=== PATIENT | female | born 1970 | race Caucasian/White ===

== ENCOUNTER 2018-08-01 16:55 | Outpatient (REF) | payer BC, SELFPAY ==
[2018-08-01 19:45] LABS: ALT 27 U/L (12-78); AST 24 U/L (15-37); Albumin 3.5 g/dL (3.4-5.0); Alkaline Phosphatase 73 U/L (46-116); Anion Gap 11.7 mmol/L (3-11); BUN 14 mg/dL (7-18); Bilirubin, Total 0.4 mg/dL (0.2-1.0); CO2 24.3 mmol/L (21.0-32.0); Calcium 9.3 mg/dL (8.5-10.1); Chloride 107 mmol/L (98-107); Estimated GFR 40.13 (mL/min/1.73m2); Glucose 94 mg/dL (70-100); Potassium 4.5 mmol/L (3.5-5.1); Sodium 143 mmol/L (136-145); TSH 1.86 uIU/mL (0.358-3.74); Total Protein 6.9 g/dL (6.4-8.2)
== END 2018-08-01 17:15 ==
LOC: NCHCN 16:55
PROVIDERS: PCP Family Medicine; Visit Provider Family Medicine
DX: E11.9 Type 2 diabetes mellitus without complications (principal); N18.9 Chronic kidney disease, unspecified; E78.5 Hyperlipidemia, unspecified; I10 Essential (primary) hypertension
CPT/HCPCS: 80053; 84443

== ENCOUNTER 2019-07-31 16:51 | Outpatient (REF) | payer BC, SELFPAY | END 2019-07-31 17:11 | LOC: NCHCN 16:51 | PROVIDERS: PCP Family Medicine; Visit Provider Family Medicine | DX: R30.0 Dysuria (principal) | CPT/HCPCS: 87077; 87086; 87186 ==

== ENCOUNTER 2019-10-23 15:43 | Outpatient (REF) | payer BC, SELFPAY ==
[2019-10-23 18:57] LABS: ALT 21 U/L (14-59); AST 15 U/L (15-37); Albumin 3.2 g/dL (3.4-5.0); Alkaline Phosphatase 76 U/L (46-116); Anion Gap 11.7 mmol/L (3-11); BUN 20 mg/dL (7-18); Bilirubin, Total 0.3 mg/dL (0.2-1.0); CO2 21.3 mmol/L (21.0-32.0); CREATININE 1.64 mg/dL (0.55-1.02); Calcium 9.1 mg/dL (8.5-10.1); Chloride 108 mmol/L (98-107); Glucose 161 mg/dL (74-106); Potassium 4.7 mmol/L (3.5-5.1); Sodium 141 mmol/L (136-145); Total Protein 6.9 g/dL (6.4-8.2)
[2019-10-23 18:59] LABS: Hemoglobin A1C 7.2 % (3.8-5.6)
== END 2019-10-23 16:03 ==
LOC: NCHCN 15:43
PROVIDERS: PCP Family Medicine; Visit Provider Family Medicine
DX: I10 Essential (primary) hypertension (principal); E78.5 Hyperlipidemia, unspecified; E11.9 Type 2 diabetes mellitus without complications; N18.9 Chronic kidney disease, unspecified; R82.79 Other abnormal findings on microbiological examination of urine
CPT/HCPCS: 80053; 83036; 87086

== ENCOUNTER 2019-12-01 18:00 | Outpatient (REF) | payer BC, SELFPAY | END 2019-12-01 18:20 | LOC: NCHCN 18:00 | PROVIDERS: PCP Family Medicine; Visit Provider Family Medicine | DX: R30.0 Dysuria (principal) | CPT/HCPCS: 87077; 87086; 87186 ==

== ENCOUNTER 2019-12-24 12:46 | Outpatient (REF) | payer BC, SELFPAY ==
[2019-12-24 19:12] LABS: HCT 36.4 % (36.0-46.0); HGB 11.7 g/dL (12.0-15.5); Mean Corp. HGB Concentration 32.1 g/dL (32.0-36.0); Mean Corpuscular Hemoglobin 28.1 pg (27.0-33.0); Mean Corpuscular Volume 87.3 fL (80-95); Mean Platelet Volume 11.2 fL (8.0-11.0); Platelet Count 325 x1000/uL (130-400); RBC 4.17 m/cumm (4.00-5.20); RBC Distribution Width 14.3 % (11.7-14.6); White Blood Cell Count 5.08 k/cumm (4.4-10.8)
[2019-12-24 19:21] LABS: ALT 33 U/L (14-59); AST 28 U/L (15-37); Albumin 3.1 g/dL (3.4-5.0); Alkaline Phosphatase 67 U/L (46-116); Anion Gap 10.2 mmol/L (3-11); BUN 20 mg/dL (7-18); Bilirubin, Total 0.3 mg/dL (0.2-1.0); CO2 24.8 mmol/L (21.0-32.0); CREATININE 1.83 mg/dL (0.55-1.02); Calcium 9.5 mg/dL (8.5-10.1); Calculated LDL 75 mg/dL (<100); Chloride 105 mmol/L (98-107); Cholesterol 147 mg/dL (<200); Estimated GFR 29.34 (mL/min/1.73m2); Glucose 153 mg/dL (74-106); HDL Cholesterol 36 mg/dL (40-60); Potassium 4.6 mmol/L (3.5-5.1); Sodium 140 mmol/L (136-145); Total Protein 6.8 g/dL (6.4-8.2); Triglyceride 181 mg/dL (<150)
== END 2019-12-24 13:06 ==
LOC: NCHCN 12:46
PROVIDERS: PCP Family Medicine; Visit Provider Family Medicine
DX: N30.10 Interstitial cystitis (chronic) without hematuria (principal); R30.0 Dysuria; N18.9 Chronic kidney disease, unspecified; E78.5 Hyperlipidemia, unspecified; I10 Essential (primary) hypertension
CPT/HCPCS: 80053; 80061; 85027; 87086

== ENCOUNTER 2020-01-05 11:53 | Outpatient (REF) | payer BC, SELFPAY | END 2020-01-05 12:13 | LOC: LBN 11:53 | PROVIDERS: PCP Family Medicine; Visit Provider Nurse Practitioner Adult Health | DX: Z87.440 Personal history of urinary (tract) infections (principal) | CPT/HCPCS: 87086 ==

== ENCOUNTER 2020-02-01 13:17 | Outpatient (REF) | payer BC, SELFPAY ==
[2020-02-01 23:48] LABS: CREATININE 1.79 mg/dL (0.55-1.02)
== END 2020-02-01 13:37 ==
LOC: LBN 13:17
PROVIDERS: PCP Family Medicine; Visit Provider Nurse Practitioner Adult Health
DX: N13.30 Unspecified hydronephrosis (principal)
CPT/HCPCS: 82565

== ENCOUNTER 2020-03-04 15:26 | Outpatient (REF) | payer BC, SELFPAY | END 2020-03-04 15:46 | LOC: NCHCN 15:26 | PROVIDERS: PCP Family Medicine; Visit Provider Family Medicine | DX: N39.0 Urinary tract infection, site not specified (principal) | CPT/HCPCS: 87086 ==

== ENCOUNTER 2020-04-26 16:35 | Outpatient (REF) | payer BC, SELFPAY | END 2020-04-26 16:55 | LOC: LBN 16:35 | PROVIDERS: PCP Family Medicine; Visit Provider Urology | DX: R39.9 Unspecified symptoms and signs involving the genitourinary system (principal) | CPT/HCPCS: 87077; 87086; 87186 ==

== ENCOUNTER 2020-05-13 12:16 | Outpatient (REF) | payer BC, SELFPAY ==
[2020-05-13 19:25] LABS: Bilirubin Negative (Negative); Blood Moderate (Negative); Clarity Cloudy (Clear); Glucose 500 mg/dL (Negative); Ketones Negative (Negative); Leukocyte Esterase Moderate (Negative); Nitrite Positive (Negative); Specific Gravity 1.025 (1.005-1.025); Urobilinogen 0.2 EU/dL (Up TO 0.2); pH 5.5 (5-8)
[2020-05-13 19:35] LABS: Bacteria Many HPF (Negative); C & S Indicated? Yes; Casts Negative LPF (Negative); Crystals Negative HPF (Negative); Epithelial Cells Few HPF (Negative); Mucus Trace (Negative)
== END 2020-05-13 12:36 ==
LOC: NCHCN 12:16
PROVIDERS: PCP Family Medicine; Visit Provider Family Medicine
DX: R30.0 Dysuria (principal)
CPT/HCPCS: 87077; 81003; 81015; 87086; 87186

== ENCOUNTER 2021-03-30 19:10 | Outpatient (REF) | payer BC, SELFPAY ==
[2021-03-30 20:03] LABS: HCT 38.3 % (36.0-46.0); HGB 11.6 g/dL (11.2-15.7)
[2021-03-30 20:55] LABS: ALT 22 U/L (14-59); AST 17 U/L (15-37); Albumin 3.3 g/dL (3.4-5.0); Alkaline Phosphatase 75 U/L (46-116); Anion Gap 10.2 mmol/L (3-11); BUN 13 mg/dL (7-18); Bilirubin, Total 0.2 mg/dL (0.2-1.0); CO2 23.8 mmol/L (21.0-32.0); CREATININE 1.3 mg/dL (0.55-1.02); Calcium 8.9 mg/dL (8.5-10.1); Chloride 103 mmol/L (98-107); Estimated GFR 43.18 (mL/min/1.73m2); Glucose 210 mg/dL (74-106); Potassium 4.8 mmol/L (3.5-5.1); Sodium 137 mmol/L (136-145)
== END 2021-03-30 19:11 | disposition home or self-care (01) ==
LOC: NCHCN 19:10
PROVIDERS: PCP Family Medicine; Visit Provider Family Medicine
DX: E11.9 Type 2 diabetes mellitus without complications (principal); N30.10 Interstitial cystitis (chronic) without hematuria; N18.9 Chronic kidney disease, unspecified; E78.5 Hyperlipidemia, unspecified; I10 Essential (primary) hypertension
CPT/HCPCS: 80053; 85014; 85018

== ENCOUNTER 2021-05-18 18:56 | Outpatient (REF) | payer BC, SELFPAY | END 2021-05-18 18:57 | disposition home or self-care (01) | LOC: NCHCN 18:56 | PROVIDERS: PCP Family Medicine; Visit Provider Nurse Practitioner Family | DX: N39.0 Urinary tract infection, site not specified (principal) | CPT/HCPCS: 87077; 87086; 87186 ==

== ENCOUNTER 2021-07-07 15:27 | Outpatient (REF) | payer BC, SELFPAY ==
[2021-07-07 19:55] LABS: HCT 36.7 % (36.0-46.0); MCH 25.5 pg (27.0-33.0); MCV 85.2 fL (80-95); MPV 10.5 fL (8.0-11.0); Platelet Count 268 10^3/uL (130-400); RBC 4.31 10^6/uL (3.93-5.22); RDW 14.5 % (11.7-14.6); RDW-SD 45.3 fL; WBC 4.94 10^3/uL (4.4-10.8)
== END 2021-07-07 15:28 | disposition home or self-care (01) ==
LOC: NCHCN 15:27
PROVIDERS: PCP Family Medicine; Visit Provider Family Medicine
DX: E11.9 Type 2 diabetes mellitus without complications (principal); N18.9 Chronic kidney disease, unspecified; D64.9 Anemia, unspecified
CPT/HCPCS: 80048; 85027; 82728; 84443

== ENCOUNTER 2021-07-18 15:20 | Outpatient (REF) | payer BC, SELFPAY ==
[2021-07-18 20:25] LABS: BUN 9 mg/dL (7-18); CREATININE 1.4 mg/dL (0.55-1.02); Calcium 8.9 mg/dL (8.5-10.1); Chloride 106 mmol/L (98-107); Estimated GFR 39.64 (mL/min/1.73m2); Ferritin 13 ng/mL (8-252); Glucose 118 mg/dL (74-106); Potassium 4.3 mmol/L (3.5-5.1); Sodium 141 mmol/L (136-145); TSH (W/Ref FT4) 2.34 uIU/mL (0.36-3.74)
== END 2021-07-18 15:21 | disposition home or self-care (01) ==
LOC: NCHCN 15:20
PROVIDERS: PCP Family Medicine; Visit Provider Family Medicine
DX: E11.9 Type 2 diabetes mellitus without complications (principal); D64.9 Anemia, unspecified; N18.9 Chronic kidney disease, unspecified
CPT/HCPCS: 80048; 82728; 84443

== ENCOUNTER 2021-08-29 10:48 | Outpatient (REF) | payer BC, SELFPAY ==
[2021-08-29 12:35] LABS: Anion Gap 11.3 mmol/L (3-11); BUN 14 mg/dL (7-18); CO2 22.7 mmol/L (21.0-32.0); CREATININE 1.4 mg/dL (0.55-1.02); Chloride 105 mmol/L (98-107); Estimated GFR 39.64 (mL/min/1.73m2); Ferritin 23 ng/mL (8-252); Glucose 109 mg/dL (74-106); Potassium 4.6 mmol/L (3.5-5.1); Sodium 139 mmol/L (136-145)
== END 2021-08-29 10:49 | disposition home or self-care (01) ==
LOC: NCHCN 10:48
PROVIDERS: PCP Family Medicine; Visit Provider Family Medicine
DX: I10 Essential (primary) hypertension (principal); D64.9 Anemia, unspecified; E11.9 Type 2 diabetes mellitus without complications
CPT/HCPCS: 80048; 82728; 85018

== ENCOUNTER 2022-05-25 14:14 | Outpatient (REF) | payer BC, SELFPAY | END 2022-05-25 14:15 | disposition home or self-care (01) | LOC: NCHCN 14:14 | PROVIDERS: PCP Family Medicine; Visit Provider Family Medicine | DX: N39.0 Urinary tract infection, site not specified (principal) | CPT/HCPCS: 87086 ==

== ENCOUNTER 2022-05-31 16:20 | Outpatient (REF) | payer BC, SELFPAY ==
[2022-05-31 15:44] LABS: HCT 42.5 % (36.0-46.0); HGB 13.7 g/dL (11.2-15.7); MCH 28.7 pg (27.0-33.0); MCHC 32.2 % (32.0-36.0); MCV 89 fL (80-95); MPV 10.2 fL (8.0-11.0); Platelet Count 293 10^3/uL (130-400); RBC 4.78 10^6/uL (3.93-5.22); RDW 13.4 % (11.7-14.6); RDW-SD 43.8 fL; WBC 7.27 10^3/uL (4.4-10.8)
[2022-05-31 15:59] LABS: Hemoglobin A1C 7.9 % (<5.7)
[2022-05-31 16:12] LABS: ALT 16 U/L (14-59); AST 16 U/L (15-37); Albumin 3.2 g/dL (3.4-5.0); Alkaline Phosphatase 80 U/L (46-116); Anion Gap 10.4 mmol/L (3-11); BUN 22 mg/dL (7-18); Bilirubin, Total 0.2 mg/dL (0.2-1.0); CO2 23.6 mmol/L (21.0-32.0); CREATININE 1.6 mg/dL (0.55-1.02); Calcium 9.5 mg/dL (8.5-10.1); Chloride 100 mmol/L (98-107); Estimated GFR 38.56 (mL/min/1.73m2); Ferritin 52 ng/mL (8-252); Glucose 313 mg/dL (74-106); Potassium 4.3 mmol/L (3.5-5.1); Sodium 134 mmol/L (136-145); Total Protein 7.6 g/dL (6.4-8.2)
== END 2022-05-31 16:21 | disposition home or self-care (01) ==
LOC: NCHCN 16:20
PROVIDERS: PCP Family Medicine; Visit Provider Family Medicine
DX: D64.9 Anemia, unspecified (principal); I10 Essential (primary) hypertension; E78.5 Hyperlipidemia, unspecified; N18.9 Chronic kidney disease, unspecified; E11.9 Type 2 diabetes mellitus without complications; Z00.00 Encounter for general adult medical examination without abnormal findings
CPT/HCPCS: 80053; 85027; 82728; 83036

== ENCOUNTER 2022-06-07 14:20 | Outpatient (REF) | payer BC, SELFPAY ==
--- OUTSIDE RECORDS SUMMARY | 2022-06-07 14:22 | XMS_ITS | Clinical Summary ---
:1970 Author Organization [facility] [place] [address] Care Team Providers Name Role Phone Earline Colbert MD Primary Care Provider Allergies Active Allergy Reactions Severity Noted Date Comments Amitriptyline Anxiety 10/01/2013 Delusions and panic attacks Prochlorperazine Anxiety 10/01/2013 Feeling li ke bugs crawling on me Petroleum Distillates Other (See Comments) 05/02/2020 Petroleum coated anything Swelling, rash skin and severe pain Medications Medication Sig Dispensed Refills Start Date End Date Status citalopram Take 20 mg by mouth 0 Active (CELEXA) 20 mg daily. tablet Blood Sugar by Other route daily 0 Active Diagnostic (ONE as needed. Use as TOUCH ULTRA TEST) instructed test strip Lancets Misc by [facility].(Non-Drug; 0 Active Combo Route) route daily as needed. loratadine Take 1 tablet by 30 tablet 12 10/01/2013 A ctive (CLARITIN) 10 mg mouth daily. tablet glipiZIDE Take 5 mg by mouth 0 A ctive (GLUCOTROL) 5 mg daily. tablet amLODIPine Take 5 mg by mouth 0 Active (NORVASC) 5 mg daily. Indications: tabletIndications: Hypertension hypertension Trospium (SANCTURA Take 1 capsule by 60 capsule 11 10/28/2013 Active XR) 60 mg Cp24 mouth daily. pentosan Take 1 capsule by 90 capsule 3 01/26/2020 Active polysulfate mouth daily. Take 1 (Elmiron) 100 mg capsule by mouth 3 Capsule times daily (before meals). metFORMIN Take 500 mg by mouth 0 Active (Glucophage) 500 daily. mg Tablet aspirin 81 mg Take 81 mg by mouth 0 Active Tablet, Chewable daily. furosemide (Lasix) Take 20 mg by mouth 0 Active 20 mg Tablet as needed. BACLOFEN ORAL Take 5 mg by mouth 0 Active daily. losartan (Cozaar) Take 50 mg by mouth 0 Active 50 mg Tablet daily. liraglutide Inject 1.2 mg 0 Acti ve (VICTOZA) 0.6 subcutaneously mg/0.1 mL (18 mg/3 daily. mL) Pen Injector insulin degludec Inject 12 Units 0 Active (TRESIBA FLEXTOUCH subcutaneously U-100 SUBQ) nightly. Blood-Glucose 1 each by 0 Active Meter Misc Misc.(Non-Drug; Combo Route) route 4 times daily. atorvastatin TAKE 1 TABLET BY 0 03/10/2020 Active (Lipitor) 40 mg MOUTH AT BEDTIME Tablet sterile water Irrigate with 250 4000 mL 11 04/29/2020 Active (Aqua Care Sterile mLs as directed Water) three times a week. SolutionIndication s: Bladder irritation Syringe, 1 each by 4 Syringe 05/03/2020 Active Disposable, 60 mL Misc.(Non-Drug; SyringeIndications Combo Route) route : Bladder once a week. irritation UNABLE TO Instill 60 mLs into 1000 mL 05/18/2020 Active FINDIndications: the bladder three Chronic UTI times a week. instill into bladder via straight catheter and let sit for 1hr. Then urinate and resume CIC gabapentin TAKE 1 CAPSULE BY 270 capsule 3 08/15/2021 Active (Neurontin) 300 mg MOUTH THREE TIMES CapsuleIndications DAILY : IC (interstitial cystitis) Active Problems Problem Noted Date Other hydronephrosis 02/02/2020 History of nephrolithiasis 02/02/2020 Acute UTI (urinary tract infection) 02/02/2020 History of UTI 12/31/2019 IC (interstitial cystitis) 12/31/2019 Elevated serum creatinine 12/31/2019 Lower urinary tract symptoms (LUTS) 10/26/2013 Simple ovarian cyst 10/01/2013 Morbid obesity with BMI of 50.0-59.9, adult 10/01/2013 Pelvic pain in female 10/01/2013 Gross hematuria 10/01/2013 Diabetes mellitus Hypertension Bilateral nephrolithiasis Encounters Date Type Specialty Care Team Description 06/06/2022 Transcribe Orders Primary Care Earline Colbert Urina ry tract infection without hematuria, site unspecified; History of ester l calculi from Last 3 Months Family History Medical History Relation Comments Coronary Artery Disease Maternal Grandfather Ovarian Cancer Maternal Grandmother Coronary Artery Disease Maternal Uncle Relation Status Comments Maternal Grandfather Maternal Grandmother Maternal Uncle Social History Tobacco Use Types Packs/Day Years Used Date Smoking Tobacco: Never Smokeless Tobacco: Never Alcohol Use Standard Drinks/Week Comments No 0 (1 standard drink = 0.6 oz pure alcoho l) Sex Assigned at Date Recorded Not on file Last Filed Vital Signs Vital Sign Reading Time Taken Comments Blood Pressure 118/66 01/12/2021 3:39 PM EDT Pulse 93 01/12/2021 3:39 PM EDT Temperature 35.9 ??C (96.6 ??F) 05/03/2020 10:21 AM EDT Respiratory Rate 16 05/03/2020 11:30 AM EDT Oxygen Saturation 96% 05/03/2020 11:30 AM EDT Inhaled Oxygen Concentration - - Weight 164.7 kg (363 lb) 01/12/2021 3:39 PM EDT Height 172.7 cm (5' 8) 04/08/2020 10:16 AM EDT Body Mass Index 55.19 04/08/2020 10:16 AM EDT Plan of Treatment Health Maintenance Due Date Last Done Comments Hepatitis B vaccine (0-59 yrs) (1 of 1970 3 - 3-dose series) Covid-19 Vaccine (#1) 1970 Pneumococcal Vaccine: At-Risk 5-64yrs 02/29/1976 (1 - PCV) DM Opthalmology Exam 02/29/1980 DM Urine Microalbumin yearly 02/29/1980 HIV screen 02/29/1988 Hepatitis C Screening 02/29/1988 Tdap adult 1989 Tetanus vaccine 1989 Breast Cancer Share Decision Needed 2010 DM Hemoglobin A1c 01/08/2014 10/08/2013 Colonoscopy 2015 HPV test 10/01/2018 10/01/2013 PAP Smear 10/01/2018 10/01/2013 Breast Cancer screening 02/29/2020 Zoster vaccine (1 of 2) 02/29/2020 DM Creatinine yearly 01/25/2021 01/26/2020, 10/08/2013, 10/01/2013 Influenza (Flu) vaccine ( - 03/22/2022 Influenza standard series) Procedures Procedure Name Priority Date/Time Associated Diagnosis Comme nts LAB SCAN 05/25/2022 12:00 AM Results for this EDT procedure are i n the results section . from Last 3 Months Results SCAN DOC: LAB (05/25/2022 12:00 AM EDT) Narrative 05/25/2022 12:00 AM EDT This result has an attachment that is no t available. Ordered by an unspecified provider. Scanning Provider MEDIA MGR SCAN EXT ORDR/RSLT from Last 3 Months Insurance Payer Benefit Plan / Subscriber ID Effective Dates Phone Addre ss Type Group [employer] [id number] 2019-Present [address] [place] [phone] (Work) Advance Directives Latest Code Status on File Code Status Date Activated Date Inactivated Comments Attempt Cardiopulmonary Resuscitation 05/03/2020 8:59 AM 2:53 PM - Inpatient Question Answer Comments Code Status decision made by: Patient Code Status History Code Status Date Activated Date Inactivated Comments Attempt Cardiopulmonary Resuscitation 05/03/2020 8:33 AM 8:59 AM - Inpatient Question Answer Comments Code Status decision made by: Patient Care Teams Driver'S Education Instructor Relationship Specialty Start Date End Date Earline Colbert MD PCP - General 09/08/13 [address] [place] [address]
--- OUTSIDE RECORDS SUMMARY | 2022-06-07 14:22 | XMS_ITS | Encounter Summary ---
:1970 Author Organization [facility] [place] [address] Care Team Providers Name Role Phone Earline Colbert MD Primary Care Provider Reason for Referral Consultation (Routine) - Authorized Specialty Diagnoses / Procedures Referred By Contact Refer red To Contact Urology Diagnoses Urinary tract infection without hematuria, site unspecified History of renal calculi 06/07/22 - STAR PT - DUE FOR RC IN 06/2021 Earline Colbert MD [facility] [address] [place], [place] [id number] [place] [phone] Fax: Referral ID Status Reason Start Expiration Visits Visits Date Date Requested Authorized [id number] Authorized Consult, 06/06/2023 6 6 Test & Treat 2 PCP Updated and/or Approved Encounter Details Date Type Department Care Team Description 06/06/2022 Transcribe Orders eDH Incoming Earline Colbert Urinary tract infection without hematuria, site unspecified; Martín Grossman MD History of renal calculi [phone] [address] [place] [address] Social History Tobacco Use Types Packs/Day Years Used Date Smoking Tobacco: Never Smokeless Tobacco: Never Alcohol Use Standard Drinks/Week Comments No 0 (1 standard drink = 0.6 oz pure alcoho l) Sex Assigned at Date Recorded Not on file documented as of this encounter Plan of Treatment Scheduled Referrals Name Type Priority Associated Diagnoses Order S chedule Referral to Outpatient Referral Routine Urinary tract Ordered : Urology infection without 06/06/2022 hematuria, site unspecified History of renal calculi documented as of this encounter Visit Diagnoses Diagnosis Urinary tract infection without hematuri a, site unspecified History of renal calculi Personal history of urinary calculi documented in this encounter Care Teams Data Acquisition Technician Relationship Specialty Start Date End Date Earline Colbert MD PCP - General 09/08/13 [address] [place] [address] documented as of this encounter
--- OUTSIDE RECORDS SUMMARY | 2022-06-07 14:23 | XMS_ITS | Encounter Summary ---
:1970 Author Organization [facility] [place] [address] Care Team Providers Name Role Phone Earline Colbert MD Primary Care Provider Encounter Details Date Type Department Care Team Description 05/03/2020 Orders Only Urology at [facility] Kailyn Bowden Bladder irritation [facility] [address], [place] [phone] Social History Tobacco Use Types Packs/Day Years Used Date Smoking Tobacco: Never Smokeless Tobacco: Never Alcohol Use Standard Drinks/Week Comments No 0 (1 standard drink = 0.6 oz pure alcoho l) Sex Assigned at Date Recorded Not on file documented as of this encounter Plan of Treatment Not on filedocumented as of this encounter Visit Diagnoses Diagnosis Bladder irritation Other specified disorders of bladder documented in this encounter Care Teams Hemotherapist Relationship Specialty Start Date End Date Earline Colbert MD PCP - General 09/08/13 [address] [place] [address] documented as of this encounter
--- OUTSIDE RECORDS SUMMARY | 2022-06-07 14:23 | XMS_ITS | Encounter Summary ---
:1970 Author Organization [facility] [place] [address] Care Team Providers Name Role Phone Earline Colbert MD Primary Care Provider Encounter Details Date Type Department Care Team Description 05/23/2020 Telephone Urology at [facility] Patricia Chamberlain MD [facility] [place] [address] [place] [address] [phone] (Wo rk) Social History Tobacco Use Types Packs/Day Years Used Date Smoking Tobacco: Never Smokeless Tobacco: Never Alcohol Use Standard Drinks/Week Comments No 0 (1 standard drink = 0.6 oz pure alcoho l) Sex Assigned at Date Recorded Not on file documented as of this encounter Miscellaneous Notes Telephone Encounter - Carolin Lau RN - 05/25/2020 11:51 AM EST Call returned to patient and reviewed the below information. She is taking 300mg of Gabapentin tid (per Ev Ngo). Orders changed form 100mg capsules to 300mg capsules and sent to patient's preferred pharmacy. Telephone Encounter - Kathrin Cruz - 05/23/2020 12:57 PM EST PHONE: [phone] Pt calls regarding her current antibiotics - she has started the abx that go into her bladder through her catheter and she's wondering if she still needs to take an oral abx? She also had a question regarding her gabapentin - was the new script (300mg instead of 100mg) sent to her pharmacy? documented in this encounter Plan of Treatment Not on filedocumented as of this encounter Visit Diagnoses Diagnosis IC (interstitial cystitis) Chronic interstitial cystitis documented in this encounter Care Teams Social Media Marketing Analyst Relationship Specialty Start Date End Date Earline Colbert MD PCP - General 09/08/13 [address] [place] [address] documented as of this encounter
--- OUTSIDE RECORDS SUMMARY | 2022-06-07 14:23 | XMS_ITS | Encounter Summary ---
:1970 Author Organization [facility] [place] [address] Care Team Providers Name Role Phone Earline Colbert MD Primary Care Provider Encounter Details Date Type Department Care Team Description 01/26/2020 Laboratory Appointment Lab 3L Naz Epperson Bilateral nephrolithiasis; [facility] Elevated serum creatinine; [facility] [place] [phone] Social History Tobacco Use Types Packs/Day Years Used Date Smoking Tobacco: Never Smokeless Tobacco: Never Alcohol Use Standard Drinks/Week Comments No 0 (1 standard drink = 0.6 oz pure alcoho l) Sex Assigned at Date Recorded Not on file documented as of this encounter Plan of Treatment Not on filedocumented as of this encounter Procedures Procedure Name Priority Date/Time Associated Comments Diagnosis HC URINE CULTURE Routine 01/26/2020 12:19 History of UTI Resul ts for this PM EDT procedure are i n the results section. BETA HCG, STAT 01/26/2020 12:18 Results for this QUANTITATIVE PM EDT procedure are i n the results section. HC VENIPUNCTURE STAT 01/26/2020 12:18 Bilateral Results for this PM EDT nephrolithiasis procedure are in Elevated serum the results creatinine section. documented in this encounter Results (ABNORMAL) Urine culture Urine (01/26/2020 12:19 PM EDT) [facility] Method Time Signature Urine Culture 10,000-49,000 cfu/ml mixed m ucosal whitney including Beta Hemolytic Streptococci, NAZ Group B MARY ALICE Note: Culture shows multiple bacterial species suggesting [facility] contamination. If symptoms c ontinue to indicate urinary tract infection, submit HOSPITAL a new specimen. LABORATORY (A) Organism Beta Hemolytic NAZ Anderson, MARY ALICE Group B (A) [facility] Specimen Anatomical Collection Method Collection Time Receive d Time (Source) Location / / Volume Laterality Urine specimen 01/26/2020 12:19 0 1:20 (specimen) PM EDT PM EDT Resulting Agency Comment Spec In Lab Ev Ngo APRN MICROBIOLOGY - GENERAL ORDER [place] Performing Organization Address City/State/[place] [address] Beta HCG, quantitative (01/26/2020 12:18 PM EDT) athologist Signature Beta hCG Quant <1 mlU/ML [facility] Comment: REFERENCE RANGES NON- FEMALE: ??Less than 5 mIU/m L POSTMENOPAUSAL FEMALE: ??Less than 8 mIU /mL ? -- FEMALES -- Weeks of ? HCG range ??(mIU/mL) ? 3 weeks ? 5.8 - 71.2 ? 4 weeks ? 9.5 - 750 ? 5 weeks ? 217 - 7,138 ? 6 weeks ? 158 - 31,795 ? 7 weeks ? 3,697 - 163,563 ? 8 weeks ? 32,065 - 149,571 ? 9 weeks ? 63,803 - 151,410 ?10 weeks ? 46,509 - 186,977 ?12 weeks ? 27,832 - 210,612 ?14 weeks ? 13,950 - 62,530 ?15 weeks ? 12,039 - 70,971 ?16 weeks ? 9,040 - 56,451 ?17 weeks ? 8,175 - 55,868 ?18 weeks ? 8,099 - 58,176 Specimen Anatomical Collection Method Collection Time Receive d Time (Source) Location / / Volume Laterality Blood specimen Venous Draw / 01/26/2020 12:18 07 20 (specimen) Unknown PM EDT 12:39 PM EDT Resulting Agency Comment Spec In Lab Ev Ngo CASTING WHEEL OPERATOR HELPER CHEMISTRY ORDERABLES Performing Organization Address City/State/[place] [address] (ABNORMAL) Comprehensive metabolic panel (non-fasting) (01/26/2020 12:18 PM EDT) athologist Signature Glucose Lvl 128 65 - 199 [facility] mg/dL [facility] Comment: Diabetes: >=200 mg/dL plus symp toms BUN 17 8 - 18 mg/dL [facility] Creatinine 1.57 (H) 0.70 - 1.20 mg/dL [facility] Sodium 139 135 - 145 mmol/L [facility] Potassium 4.2 3.5 - 5.0 mmol/L [facility] Comment: Please note: ??Patients with WBC >100,00 0 may have falsely elevated Potassium levels. ??For accurate Potassium quantif ication in these patients send serum separator tube (gold top) for subsequent determinations. ??Contact the Clinical Chemistry Laboratory if there are any qu estions. Chloride 100 98 - 107 mmol/L [facility] CO2 24 22 - 31 mmol/L [facility] Anion Gap 15 5 - 15 mmol/L [facility] Calcium 12.0 (H) 8.5 - 10.5 mg/dL [facility] Total Protein 7.4 6.1 - 8.0 gm/dL [facility] Albumin 4.1 3.2 - 5.2 gm/dL [facility] AST 13 0 - 30 unit/L [facility] ALT 12 0 - 30 unit/L [facility] Alk Phos 58 35 - 105 unit/L [facility] Total Bilirubin 0.3 0.2 - 1.3 mg/dL [facility] Estimated GFR 38 (L) >=60 mL/min/1.73 m?? [facility] Comment: The eGFR was calculated using the CKD-EP I equation. As with all creatinine based estimates of kidney function, eGFR values calculated with the CKD-EPI equation are not accurate in patients wi th acute kidney failure, extremes of body mass or the acutely ill. [email or web address] eGFR 44 (L) >=60 mL/min/1.73 m?? [facility] Comment: The eGFR was calculated using the CKD-EP I equation. As with all creatinine based estimates of kidney function, eGFR values calculated with the CKD-EPI equation are not accurate in patients wi th acute kidney failure, extremes of body mass or the acutely ill. [email or web address] Specimen Anatomical Collection Method Collection Time Receive d Time (Source) Location / / Volume Laterality Blood specimen 01/26/2020 12:18 0 (specimen) PM EDT 12:38 PM EDT Resulting Agency Comment Spec In Lab Ev Ngo APRN CHEMISTRY ORDERABLES Performing Organization Address City/State/[place] [address] documented in this encounter Visit Diagnoses Diagnosis Bilateral nephrolithiasis Elevated serum creatinine Other nonspecific findings on examinatio n of blood History of UTI Personal history of urinary (tract) infe ction documented in this encounter Care Teams Nurse Practitioner Physician Assistant Relationship Specialty Start Date End Date Earline Colbert MD PCP - General 09/08/13 [address] [place] [address] documented as of this encounter
--- OUTSIDE RECORDS SUMMARY | 2022-06-07 14:23 | XMS_ITS | Encounter Summary ---
:1970 Author Organization [facility] [place] [place] [address] Care Team Providers Name Role Phone Earline Colbert MD Primary Care Provider Encounter Details Date Type Department Care Team Description 04/08/2020 Office Visit Urology at [facility] Patricia Chamberlain Lower urinary tract [facility] symptoms (LUTS) [place] [address] [place] [id number] [phone] Social History Tobacco Use Types Packs/Day Years Used Date Smoking Tobacco: Never Smokeless Tobacco: Never Alcohol Use Standard Drinks/Week Comments No 0 (1 standard drink = 0.6 oz pure alcoho l) Sex Assigned at Date Recorded Not on file documented as of this encounter Last Filed Vital Signs Vital Sign Reading Time Taken Comments Blood Pressure 141/75 04/08/2020 10:16 AM EDT Pulse 78 04/08/2020 10:16 AM EDT Temperature 36.2 ??C (97.1 ??F) 04/08/2020 10:16 AM EDT Respiratory Rate - - Oxygen Saturation 98% 04/08/2020 10:16 AM EDT Inhaled Oxygen Concentration - - Weight 171 kg (377 lb) 04/08/2020 10:16 AM EDT Height 172.7 cm (5' 8) 04/08/2020 10:16 AM EDT Body Mass Index 57.32 04/08/2020 10:16 AM EDT documented in this encounter Patient Instructions Patient InstructionsSim Do LPN - 04/08/2020 10:20 AM EDT Instructions following Cystoscopy Activity: As tolerated by your comfort level. Fluids: You should increase your water today. Avoid coffee, tea and cola. You do not need to exceed 64 ounces of water today. Urination: You will likely have a small amount of blood in your urine for the next several days. This is normal; however, if you are passing large amounts of blood clots or are unable to void please call our office at [phone] before 5PM or [phone] after hours. Please call if: * you have copious blood in your urine * fevers greater than 101.3 F * you are unable to void The number for questions is [phone] before 5 PM weekdays and [phone] after 5 PM and weekends. Follow-up: With Dr Chamberlain documented in this encounter Progress Notes Patricia Chamberlain MD - 04/08/2020 10:20 AM EDT UROLOGY CLINIC VISIT CC:recurrent UTI / non functional left kidney ID Libia Burgos is a 50 y.o. female with a history of recurrent UTI, IC, recurrent nephrolithiasis, presenting for discussion of left poorly functioning kidney. She has a history of UTI dating back to childhood. No hospitalizations for febrile UTI or surgeries that she can recall. She reports symptomatic UTI q other week. UTI symptoms = burning, bilateral low back pain, discolored urine, no fevers, no nausea She has urinary urgency and frequency with UUI. She has been managed on trospium for this. Diagnosed with IC in 2013. Per Ev Mccarty APRN note 12/31/19 Pelvic pain history: 01/2013: pelvic pain and culture showing e.coli tx with cipro. Follow up cultures were negative but she continued to have gross hematuria. 08/13/2013: saw Dr. Brandt, had a cysto which showed bladder inflammation. CTU showed bladder wall thickening and bilateral nonobstructing renal stones 09/2013: Dr. Norris attempted to scope her at her first visit to [facility], but she could not tolerate it,so she went to the OR on 10/08/2013. Cysto showed severe acute and chronic inflammation and ulcerative changes. She was referred to me for tx discussion Bladder biopsy pathology: ; SURGICAL PATHOLOGY A - Anterior bladder wall, biopsy: Fragments of squamous mucosa with ulceration and underlying granulation tissue. Acute and chronic cystitis. She is voiding every 2 hours during the day, and 1-2 times per day. Holding hurts her bladder. She has to triple void and concentrate on voiding She is off neurontin, she was on 100 mg po three times per day. She takes hydrocodone 1/2 pill at bedtime prn, 1-2 times per week. She would consider tapering off the elmiron in the future. She is voiding every 2 hours during the day, and 1-2 times per day. Holding hurts her bladder. She has to triple void and concentrate on voiding. No motrin for bladder pain since starting hydrocodone. Bowels daily 16 oz of water every 2 hours. Not sexually active She has not had a cystoscopic evaluation since 2013. 04/08/20: RTC for f/u cystoscopy. Has not had symptomatic UTI since last visit. Urine culture grew <50K e coli, contaminated specimen Cultures 01/27/20: 10-49K Mixed +GBS [facility] indicate: 11/2019: e.coli very resistant to abx 12/30/13: <10K mixed gram negative whitney and >100K mixed gram positive whitney 08/14/13: no growth 08/11/13: 10-50K group b strep 07/14/14: 10-50K mixed gram positive whitney 06/29/14: >100K mixed gram positive whitney 04/14/13: 50-100K mixed gram positive whitney 03/18/13: 10-50K mixed gram positive whitney. No pathogens isolated 02/20/13: 50-100K mixed gram whitney 01/20/13: 10-50K e.coli lepe sensitive ?? Ref Range & Units 1mo ago Glucose Lvl 65 - 199 mg/dL 128 Comment: Diabetes: >=200 mg/dL plus symptoms BUN 8 - 18 mg/dL 17 Creatinine 0.70 - 1.20 mg/dL 1.57High Sodium 135 - 145 mmol/L 139 Potassium 3.5 - 5.0 mmol/L 4.2 Comment: Please note: ??Patients with WBC >100,000 may have falsely elevated Potassium levels. ??For accurate Potassium quantification in these patients send serum separator tube (gold top) for subsequent determinations. ??Contact the Clinical Chemistry Laboratory if there are any questions. 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 Recurrent stones HTN PAST SURGICAL HISTORY Left shoulder surgery Past Surgical History: Procedure Laterality Date ??? LITHOTRIPSY ? ? PRO CYSTO W URETEROSCOPY &/OR PYELOSCOPY, DX 10/08/2013 CYSTOURETEROSCOPY, DIAGNOSTIC performed by Duane Norris III, MD at [facility] MAIN OR ??? TONSILLECTOMY ??? 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 Coronary Artery Disease Maternal Grandfather ??? Coronary Artery Disease Maternal Uncle ??? Ovarian Cancer Maternal Grandmother ALLERGY Allergies Allergen Reactions ??? Amitriptyline Anxiety Delusions and panic attacks ??? Compazine [Prochlorperazine] Anxiety Feeling like bugs crawling on me ??? Macrobid [Nitrofurantoin Monohyd/M-Cryst] Chills and fever. HOME MEDICATIONS Current Outpatient Medications on File Prior to Visit Medication Sig Dispense Refill ??? atorvastatin (Lipitor) 40 mg Tablet TAKE 1 TABLET BY MOUTH AT BEDTIME ??? [DISCONTINUED] fluconazole (Diflucan) 150 mg Tablet ??? metFORMIN (Glucophage) 500 mg Tablet Take 500 mg by mouth daily. ??? aspirin 81 mg Tablet, Chewable Take 81 mg by mouth daily. ??? furosemide (Lasix) 20 mg Tablet Take 20 mg by mouth as needed. ??? BACLOFEN ORAL Take 5 mg by mouth daily. ??? losartan (Cozaar) 50 mg Tablet Take 50 mg by mouth daily. ??? amoxicillin (AMOXIL) 500 mg Tablet Take 500 mg by mouth. ??? liraglutide (VICTOZA) 0.6 mg/0.1 mL (18 mg/3 mL) Pen Injector Inject 1.2 mg subcutaneously daily. ??? insulin degludec (TRESIBA FLEXTOUCH U-100 SUBQ) Inject 12 Units subcutaneously nightly. ??? Blood-Glucose Meter Misc [address] [facility].(Non-Drug; Combo Route) route 4 times daily. ??? pentosan polysulfate (Elmiron) 100 mg Capsule Take 1 capsule by mouth daily. Take 1 capsule by mouth 3 times daily (before meals). 90 capsule 3 ??? gabapentin (Neurontin) 100 mg Capsule Take 1 capsule tid x5 days then increase to 2 capsules tidx5 days, then increase to 3 capsules three times daily (Patient taking differently: 100 mg 2 times daily. Take 1 capsule tid x5 days then increase to 2 capsules tid x5 days, then increase to 3 capsulesthree times daily) 270 capsule 3 ??? [DISCONTINUED] hydrOXYzine (Atarax) 25 mg Tablet Take 1 tablet by mouth nightly. Start with night time dose first as you may be fatigued on this 30 tablet 12 ??? [DISCONTINUED] fluconazole (DIFLUCAN) 100 mg tablet Take 100 mg by mouth daily. ??? Trospium (SANCTURA XR) 60 mg Cp24 Take 1 capsule by mouth daily. 60 capsule 11 ??? glipiZIDE (GLUCOTROL) 5 mg tablet Take 5 mg by mouth daily. ??? amLODIPine (NORVASC) 5 mg tablet Take 5 mg by mouth daily. Indications: Hypertension ??? [DISCONTINUED] oxyCODONE (ROXICODONE) 5 mg immediate release tablet Take 1-2 tablets by mouth every 4 hours as needed. 30 tablet 0 ??? citalopram (CELEXA) 20 mg tablet Take 20 mg by mouth daily. ??? Blood Sugar Diagnostic (ONE TOUCH ULTRA TEST) test strip by Other route daily as needed. Use as instructed ??? Lancets Misc by Misc.(Non-Drug; Combo Route) route daily as needed. ??? loratadine (CLARITIN) 10 mg tablet Take 1 tablet by mouth daily. 30 tablet 12 No current facility-administered medications on file prior to visit. REVIEW OF SYSTEMS A full 12 point review of systems was performed and notable for the findings listed in the HPI and below, otherwise negative. VITALS Patient Vitals for the past 24 hrs: Temp Pulse BP SpO2 04/08/20 1016 36.2 ??C (97.1 ??F) 78 141/75 98 % PHYSICAL EXAM Estimated body mass index is 57.32 kg/m?? as calculated from the following: Height as of this encounter: 172.7 cm (5' 8). Weight as of this encounter: 171 kg (377 lb). GEN: Alert and oriented to person, place and time. NAD CV: Regular rate HEENT: NCAT PULM: Non labored breathing on RA ABD: Soft, non distended, non tender to palpation, large pannus : No CVA tenderness. MSK: symmetric strength in bilateral upper and lower extremities NEURO: grossly normal, no focal deficits, moves all 4 extremities EXT: symmetric, no edema, no calf tenderness PVR: 03/11/20: 350 ml (shortly after voiding) UA: positive for blood and leukocytes IMAGING: I personally reviewed the following imaging: CT A/P 01/28/20 non con Right kidney/ureter: There is a RIGHT midpole nonobstructing renal calculi, approximately 9 mm within an ill-defined low-attenuation, likely cyst. Cyst is very difficult to visualize noncontrast likely measures approximately 2 cm area There is cortical scarring associated. Given the lack of intravenous contrast this cannot be further characterized. There is no pelvicaliectasis and no hydronephrosis. ?? Left kidney/ureter: Mild LEFT pelviectasis centrally. Difficult to characterize noncontrast. There are multiple low-attenuation renal cortical cysts with marked cortical thinning. There is a dense posterior LEFT midpole cortical stone on the periphery of the LEFT kidney measuring 5 mm. An additional lower pole nonobstructing peripheral cortical 7 mm stone. ?? Urinary Bladder: No bladder or proximal urethral calculi. MAG 3 02/08/20 FINDINGS: Left Kidney: No visible perfusion or extraction.?? Right Kidney: Normal perfusion, extraction, excretion, and clearance prior to furosemide. IMPRESSION 1. Non-functioning left kidney. 2. Normal right renal function. ?? RBUS 01/26/20 IMPRESSION No prior renal studies available for comparison. 1. There is marked left pelvicaliectasis with thin rim of echogenic renal parenchyma suggestive of long standing obstruction. There is associated dilatation of the proximal left ureter. 2. The right kidney contains nonobstructing renal calculi, largest within a simple cyst measuring 9.4 mm in greatest dimension. 3. Distended bladder is normal in contour. CYSTO 04/08/20: significant bladder debris, mucosal ulceration / trabeculation ASSESSMENT: 1. ?.Recurrent UTI -vs.? IC many recent cx mixed. No febrile infections. Asymptomatic today- urine sent for culture. If refractory UTI discussed starting home antibiotic irrigations 2. 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 3. Bladder ulceration - discussed bx vs. TURBT- will plan to book this in OR 4.hx of IC 5. Atrophic / non functioning left kidney 6. Bilateral non obstructing renal stones - appear parenchymal 7. H/o Micro hematuria PLAN: Book OR for Bx Follow up urine culture Daily [facility] F/U UA/micro and urine culture - if CLEAN catch with UA/micro showing +>10WBC and >50K of one organism will treat otherwise recommend against treatment I have extensively counseled her on reasons to call or return in the interim Patricia Chamberlain MD documented in this encounter Procedure Notes Patricia Chamberlain MD - 04/08/2020 10:20 AM EDTAssociated Order(s): CYSTOSCOPY Procedure(s): CYSTO, EXAM, CLINIC Pre-Procedure Diagnose(s): Lower urinary tract symptoms (LUTS); Microhematuria Post-Procedure Diagnose(s): Lower urinary tract symptoms (LUTS); Microhematuria PATIENT ID: Libia Burgos is a 50 y.o. female PROCEDURE: Flexible cystoscopy. SURGEON: Patricia Chamberlain MD PRE-PROCEDURE DIAGNOSIS: LUTS/recurrent UTI/urinary retention/microhematuria POST-PROCEDURE DIAGNOSIS: NICK COMPLICATIONS: None. PROCEDURE: Urinalysis revealed no evidence of an active urinary tract infection. After informed written consent was obtained a team timeout was held confirming the patient's identity and planned procedure. Oral antibiotics were administered. The external genitalia appropriately hadbeen cleaned and draped lidocaine was instilled into the urethra to achieve topical anesthesia. The flexible cystocope was inserted into the urethra and advanced into the bladder under direct vision. The bladder was systematically inspected through 360 degrees with the flexible telescope including retroversion. FINDINGS: Meatus normal urethroscopy was normal- no stricture or masses The ureteral orifices were not well visualized The bladder had significant debris and trabeculations. Irrigated to clear, multiple ulcerative patches on the posterior and lateral bladder knox consistent with chronic cystitis vs. Malignancy, no obvious bladder stones The cystoscope was removed. The patient tolerated the procedure without difficulty. There were no complications. PLAN: Book OR for bx vs. TURBT Patricia Chamberlain MD documented in this encounter Plan of Treatment Not on filedocumented as of this encounter Procedures Procedure Name Priority Date/Time Associated Diagnosis Comme nts URINE CULTURE Routine 04/08/2020 1:00 PM Lower urinary trac t Results for this EDT symptoms (LUTS) procedure ar e in the results section. CYSTOSCOPY Routine 04/08/2020 10:20 AM Lower urinary tract R esults for this EDT symptoms (LUTS) procedure ar e in the results section. documented in this encounter Results (ABNORMAL) Urine culture Cystoscopic Urine (04/08/2020 1:00 PM EDT) [facility] Method Time Signature Urine Culture 10,000-49,000 cfu/ml Normal mucosal whitney NAZ FOOTEMARY ALICE 1,000-9,000 cfu/ml mixed mucosal whitney [facility] Specimen Anatomical Collection Method Collection Time Receive d Time (Source) Location / / Volume Laterality Urine specimen 04/08/2020 1:00 PM 020 2:35 (specimen) EDT PM EDT Resulting Agency Comment Spec In Lab Patricia Chamberlain MD MICROBIOLOGY - GENERAL ORDER [place] Performing Organization Address City/State/ZIP Code Phon e Number [facility] [address] CYSTO, EXAM, CLINIC (04/08/2020 10:20 AM EDT) Narrative Patricia Chamberlain MD - 04/08/2020 10:20 A M Patricia Crawford MD ? 04/08/2020 ??4:41 PM PATIENT ID: Libia Burgos is a 50 y.o. female PROCEDURE: Flexible cystoscopy. SURGEON: Patricia Chamberlain MD PRE-PROCEDURE DIAGNOSIS: LUTS/recurrent UTI/urinary retention/microhematuria POST-PROCEDURE DIAGNOSIS: NICK COMPLICATIONS: None. PROCEDURE: Urinalysis revealed no evidence of an ac tive urinary tract infection. After informed written consent was obtai dexter a team timeout was held confirming the patient's identity a nd planned procedure. Oral antibiotics were administered. ?? T he external genitalia appropriately had been cleaned and drape d lidocaine was instilled into the urethra to achieve topical anes thesia. The flexible cystocope was inserted into the urethra and advanced into the bladder under direct vision. Th e bladder was systematically inspected through 360 deg angy with the flexible telescope including retroversion. FINDINGS: Meatus normal urethroscopy was normal- no stricture o r masses The ureteral orifices were not well visu alized The bladder had significant debris and t rabeculations. Irrigated to clear, multiple ulcerative patches on the posterior and lateral bladder knox consistent with ch ronic cystitis vs. Malignancy, no obvious bladder stones The cystoscope was removed. The patient tolerated the procedure without difficulty. There were no complications. PLAN: Book OR for bx vs. TURBT Patricia Chamberlain MD Patricia Chamberlain MD PROCEDURE ORDERABLES documented in this encounter Visit Diagnoses Diagnosis Lower urinary tract symptoms (LUTS) Other symptoms involving urinary system documented in this encounter Care Teams Senior Manufacturing Supervisor Relationship Specialty Start Date End Date Earline Colbert MD PCP - General 09/08/13 [address] [place] [address] documented as of this encounter
--- OUTSIDE RECORDS SUMMARY | 2022-06-07 14:23 | XMS_ITS | Encounter Summary ---
:1970 Author Organization [facility] [address] Care Team Providers Name Role Phone Earline Colbert MD Primary Care Provider Encounter Details Date Type Department Care Team Description 03/11/2020 Office Visit Urology at [facility] Patricia Chamberlain, Lower urinary tract symptoms (LUTS); [facility] IC (interstitial cystitis); [facility] Atrophic kidney; [place], [place] Dr Urinary retention [id number] [place] [address] [phone] Social History Tobacco Use Types Packs/Day Years Used Date Smoking Tobacco: Never Smokeless Tobacco: Never Alcohol Use Standard Drinks/Week Comments No 0 (1 standard drink = 0.6 oz pure alcoho l) Sex Assigned at Date Recorded Not on file documented as of this encounter Last Filed Vital Signs Vital Sign Reading Time Taken Comments Blood Pressure 125/85 03/11/2020 11:08 AM EDT Pulse 83 03/11/2020 11:08 AM EDT Temperature 37.2 ??C (98.9 ??F) 03/11/2020 11:08 AM EDT Respiratory Rate 20 03/11/2020 11:08 AM EDT Oxygen Saturation 98% 03/11/2020 11:08 AM EDT Inhaled Oxygen Concentration - - Weight 171 kg (377 lb) 03/11/2020 11:08 AM EDT Height 172.7 cm (5' 8) 03/11/2020 11:08 AM EDT Body Mass Index 57.32 03/11/2020 11:08 AM EDT documented in this encounter Progress Notes Patricia Chamberlain MD - 03/11/2020 11:20 AM EDT UROLOGY CLINIC VISIT CC:recurrent UTI / non functional left kidney HPI Libia Burgos is a 50 y.o. female with a history of recurrent UTI, IC, recurrent nephrolithiasis, presenting for discussion of left poorly functioning kidney. She has a history of UTI dating back to childhood. No hospitalizations for febrile UTI or surgeries that she can recall. She get symptomatic UTI q other week. Currently on day 5 of amoxicillin. She has urinary urgency and frequency with UUI. She has been managed on trospium for this. UTI - burning, bilateral low back pain, discolored urine, no fevers, no nausea Diagnosed with IC in 2013. Per Ev [...] scope her at her first visit to [facility], but she could not tolerate it,so she [...] not had a cystoscopic evaluation since 2013. 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 Recurrent stones HTN PAST SURGICAL HISTORY Left shoulder surgery Past Surgical History: Procedure Laterality Date ??? LITHOTRIPSY ? ? PRO CYSTO W URETEROSCOPY &/OR PYELOSCOPY, DX 10/08/2013 CYSTOURETEROSCOPY, DIAGNOSTIC performed by Duane Norris III, MD at [facility] MAIN OR ??? TONSILLECTOMY ??? TUBAL LIGATION [...] to Visit Medication Sig Dispense Refill ??? metFORMIN (Glucophage) 500 mg Tablet Take [...] ??? Blood-Glucose Meter Misc 1 each by Misc.(Non-Drug; Combo Route) route 4 times daily. ??? [...] capsulesthree times daily) 270 capsule 3 ??? hydrOXYzine (Atarax) 25 mg Tablet Take 1 tablet by mouth nightly. Start with night time dose first as you may be fatigued on this 30 tablet 12 ??? fluconazole (DIFLUCAN) 100 mg tablet Take 100 mg by mouth daily. ??? Trospium (SANCTURA XR) 60 mg Cp24 Take 1 capsule by mouth daily. 60 capsule 11 ??? glipiZIDE (GLUCOTROL) 5 mg tablet Take 5 mg by mouth daily. ??? amLODIPine (NORVASC) 5 mg tablet Take 5 mg by mouth daily. Indications: Hypertension ??? oxyCODONE (ROXICODONE) 5 mg immediate release tablet [...] tablet by mouth daily. 30 tablet 12 ??? [DISCONTINUED] ciprofloxacin (CIPRO) 500 mg tablet Take 500 mg by mouth 3 times daily. ??? [DISCONTINUED] gabapentin (NEURONTIN) 300 mg capsule Take 1 capsule by mouth 3 times daily. To use instead of 100 mg tablets when having more pain 21 capsule 3 No current facility-administered medications on file prior to visit. REVIEW OF SYSTEMS A full 12 point review of systems was performed and notable for the findings listed in the HPI and below, otherwise negative. VITALS Patient Vitals for the past 24 hrs: Temp Pulse Resp BP SpO2 03/11/20 1108 37.2 ??C (98.9 ??F) 83 20 125/85 98 % PHYSICAL EXAM Estimated body mass [...] symmetric, no edema, no calf tenderness PVR: 350 ml (shortly after voiding) UA: positive [...] 3. Distended bladder is normal in contour. ASSESSMENT: 1. ?.Recurrent UTI -vs.? IC many recent cx mixed. No febrile infections. Still symptomatic today despite abx coverage. Urine sent for culture today 2. Urinary retention - suspect chronic 3. IC 4. Atrophic / non functioning left kidney 5. Bilateral non obstructing renal stones - appear parenchymal 6. H/o Micro hematuria Discussed the above. Given recent suspected recurrent UTI and hematuria / PVR of 350 I have discussed further work up with cystoscopy. Additionally discussed learning CIC - although may be challenging with body habitus, she is open to trying and will plan teaching at return visit. Regarding non obstructive stones, relayed that given parenchymal location they are unlikely to be accessed without PCNL vs. Open or lap pyelolithotomy. She prefers to observe. Regarding atrophic left kidney we discussed options for management in the setting of co-morbidities/body habitus (BMI = 57) including observation vs. Nephrectomy. Given current body habitus, nephrectomy would be challenging andpotentially high risk. Further, I have relayed my concerns that if she is in chronic retention a nephrectomy may not help with recurrent suspected recurrent tascending cystitis vs. Colonization / bladder pain. Will discuss further at next visit PLAN: RTC for cystoscopic evaluation / exam / CIC teaching F/U UA/micro and urine culture - if [...] Name Priority Date/Time Associated Comments Diagnosis HC URINALYSIS Routine 03/11/2020 11:59 AM Lower urinary tract Results for this ROUTINE EDT symptoms (LUTS) procedure ar e in the results section. HC URINE CULTURE Routine 03/11/2020 11:59 AM Lower urinary tra ct Results for this EDT symptoms (LUTS) procedure ar e in the results section. documented in this encounter Results (ABNORMAL) Urine culture Clean Catch Urine (03/11/2020 11:59 AM EDT) [facility] Method Time Signature Urine Culture 10,000-49,000 NAZ cfu/ml [facility] coli (A) [facility] Organism Escherichia NAZ coli (A) [facility] Specimen (Source) Anatomical Collection Method Collection Time Re ceived Time Location / / Volume Laterality Urine specimen 03/11/2020 11:59 0 5:39 obtained by clean AM EDT PM EDT catch procedure (specimen) Resulting Agency Comment Spec In Lab Organism Antibiotic Method Susceptibility Escherichia coli Amikacin VITEK 2 METHOD Sensitive Escherichia coli Ampicillin + Sulbactam VITEK 2 METHOD Resistan t Escherichia coli Aztreonam VITEK 2 METHOD Resistant Escherichia coli Cefazolin VITEK 2 METHOD Resistant Escherichia coli Ceftazidime VITEK 2 METHOD 4: Sensitive Escherichia coli Ceftriaxone VITEK 2 METHOD Resistant Escherichia coli Ertapenem VITEK 2 METHOD Sensitive Escherichia coli Gentamicin VITEK 2 METHOD Resistant Escherichia coli Levofloxacin VITEK 2 METHOD Resistant Comment: Levofloxacin and Ciprofloxac in may not adequately treat infections in critically ill patients even when isolates test susceptible in the laboratory. Contact Infectious Disease b efore using in critically ill patients. Escherichia coli Meropenem VITEK 2 METHOD <=0.25: Sensiti ve Escherichia coli Nitrofurantoin VITEK 2 METHOD Sensitive Escherichia coli Piperacillin/Tazobactam VITEK 2 METHOD <=4: Se nsitive Escherichia coli Tetracycline VITEK 2 METHOD Sensitive Escherichia coli Tobramycin VITEK 2 METHOD Intermediate Escherichia coli Trimethoprim/Sulfa VITEK 2 METHOD Resistant Patricia Chamberlain MD MICROBIOLOGY - GENERAL ORDER [place] Performing Organization Address City/State/[place] [address] (ABNORMAL) _Urinalysis with microscopic (03/11/2020 11:59 AM EDT) [facility] gist Method Time Signature Glucose UA >=1000 Negative [facility] (Critical) mg/dL [facility] Comment: Urinalysis result NOT critical without a combination of Glucose greater than or equal to 500 mg/dL AND Ketones greate r than or equal to 80 mg/dL Protein UA 100 (A) Negative mg/dL [facility] Bilirubin UA Negative Negative mg/dL [facility] Comment: Clinical correlation required for positi ve Urine Bilirubin results as false positive may occur with some drugs and d rug related products. If a false positive is suspected a serum total bili serrano should be considered if clinically indicated. Urobilinogen UA Normal Normal mg/dL [facility] pH UA 5.5 5.0 - 8.0 [facility] Blood UA Large (A) Negative mg/dL [facility] Ketones UA Negative Negative mg/dL [facility] Nitrite UA Negative Negative [facility] Leukocytes UA Small (A) Negative [facility] Appearance UA Cloudy (A) Clear [facility] Spec [place] UA 1.023 1.006 - 1.030 [facility] Color UA Yellow Yellow [facility] RBC UA 62 (H) 0 - 4 /HPF [facility] Comment: Interpret results with caution, microsco pic results are from suboptimal specimen volume WBC UA 64 (H) 0 - 5 /HPF [facility] Bacteria UA Occasional (A) None /HPF [facility] Squam Epith UA 17 (H) <=4 /HPF [facility] Hyaline Cast UA 19 (H) 0 - 2 /LPF [facility] Specimen Anatomical Collection Method Collection Time Receive d Time (Source) Location / / Volume Laterality Urine specimen 03/11/2020 11:59 0 5:01 (specimen) AM EDT PM EDT Resulting Agency Comment Spec In Lab Patricia Chamberlain MD URINE ORDERABLES Performing Organization Address City/State/[place] [address] documented in this encounter Visit Diagnoses Diagnosis Lower urinary tract symptoms (LUTS) Other symptoms involving urinary system IC (interstitial cystitis) Chronic interstitial cystitis Atrophic kidney Renal sclerosis, unspecified Urinary retention Retention of urine, unspecified documented in this encounter Care Teams Zinc Furnace Charger Relationship Specialty Start Date End Date Earline Colbert MD PCP - General 09/08/13 [address] [place] [address] documented as of this encounter
--- OUTSIDE RECORDS SUMMARY | 2022-06-07 14:23 | XMS_ITS | Encounter Summary ---
:1970 Author Organization [facility] [place] [address] Care Team Providers Name Role Phone Earline Colbert MD Primary Care Provider Encounter Details Date Type Department Care Team Description 02/23/2014 Notes Only [place] [facility] [place] Davila, [facility] [place] [address] [facility] [phone] UROLOGY DEPT. [place], [place] [address] (Wo rk) Social History Tobacco Use Types Packs/Day Years Used Date Smoking Tobacco: Never Smokeless Tobacco: Never Alcohol Use Standard Drinks/Week Comments No 0 (1 standard drink = 0.6 oz pure alcoho l) Sex Assigned at Date Recorded Not on file documented as of this encounter Progress Notes Ev Davila APRN - 02/23/2014 7:15 AM EDT UA dated 12/30/13 from [facility] in [place], [place] showed >50 rbc/hpf and >50 wbc/hpf,no nitrates. No culture report with this. No squamous cells commented on. Will try to get a culture result from that day. Will see her back as scheduled at this time. documented in this encounter Plan of Treatment Not on filedocumented as of this encounter Visit Diagnoses Not on filedocumented in this encounter Care Teams Clinical Laboratory Scientist Relationship Specialty Start Date End Date Earline Colbert MD PCP - General 09/08/13 [address] [place] [address] documented as of this encounter
--- OUTSIDE RECORDS SUMMARY | 2022-06-07 14:23 | XMS_ITS | Encounter Summary ---
:1970 Author Organization [facility] [place] [address] Care Team Providers Name Role Phone Earline Colbert MD Primary Care Provider Encounter Details Date Type Department Care Team Description 05/17/2020 Telephone [address]rology at [facility] Patricia Chamberlain MD [address] [place] [address] [place] [address] [phone] (Wo rk) Social History Tobacco Use Types Packs/Day Years Used Date Smoking Tobacco: Never Smokeless Tobacco: Never Alcohol Use Standard Drinks/Week Comments No 0 (1 standard drink = 0.6 oz pure alcoho l) Sex Assigned at Date Recorded Not on file documented as of this encounter Miscellaneous Notes Addendum Note - Carolin Melchor RN - 05/17/2020 10:17 AM EDT Addended by: CAROLIN MELCHOR on: 05/17/2020 10:17 AM Modules accepted: Orders Telephone Encounter - Patricia Chamberlain MD - 05/17/2020 9:26 AM EDT Called Ms. Burgos to discuss negative biopsy results and plan moving forward. DIAGNOSIS A - Left anterior wall, biopsy: - Squamous metaplasia with acute inflammation and focal associated fragment of granulation tissue. - There is no evidence of malignancy or dysplasia. B - Posterior Wall, Bladder, biopsy (1) - Squamous metaplasia. - Follicular chronic cystitis. - There is no evidence of malignancy or dysplasia. Electronically signed by: MD Rin, Regino Stoner Verified: 05/10/2020 Pathologist Performed at: -[facility] Dept. of Pathology, [place], [place] She is doing well with CIC q other night. Residual of 50ml. Doing bladder irrigations with sterile saline. Discussed trial of antibiotic irrigation with gentamicin three times weekly. Will set up through [facility]. Concentration of 480 mg Gentamicin in 1 Liter 0.9 Normal Saline She will draw up 60ml of the solution and instill into bladder via bartlett catheter and let sit for 1hr. She will then void per urethra and resume CIC. RTC 3 mo for follow up. Patricia Chamberlain MD documented in this encounter Plan of Treatment Not on filedocumented as of this encounter Visit Diagnoses Diagnosis Chronic UTI Urinary tract infection, site not specif ied documented in this encounter Care Teams Eye Surgeon Relationship Specialty Start Date End Date Earline Colbert MD PCP - General 09/08/13 [address] [place] [address] documented as of this encounter
--- OUTSIDE RECORDS SUMMARY | 2022-06-07 14:23 | XMS_ITS | Encounter Summary ---
:1970 Author Organization [place] [address] Care Team Providers Name Role Phone Earline Colbert MD Primary Care Provider Encounter Details Date Type Department Care Team Description 02/15/2020 Telephone Urology at [facility] Ev Davila, [facility] [place] [address] [facility] [phone] UROLOGY DEPT. [place], [place] [address] (Wo rk) Social History Tobacco Use Types Packs/Day Years Used Date Smoking Tobacco: Never Smokeless Tobacco: Never Alcohol Use Standard Drinks/Week Comments No 0 (1 standard drink = 0.6 oz pure alcoho l) Sex Assigned at Date Recorded Not on file documented as of this encounter Miscellaneous Notes Telephone Encounter - Kathrin Cruz - 02/15/2020 11:57 AM EDT PHONE: [phone] Pt calls wondering what her next steps are? She would like to speak with Ev and will be available today after 3pm. documented in this encounter Plan of Treatment Not on filedocumented as of this encounter Visit Diagnoses Not on filedocumented in this encounter Care Teams Maintenance Shop Technician Relationship Specialty Start Date End Date Earline Colbert MD PCP - General 09/08/13 [address] [place] [address] documented as of this encounter
--- OUTSIDE RECORDS SUMMARY | 2022-06-07 14:23 | XMS_ITS | Encounter Summary ---
:1970 Author Organization [facility] [place] [address] Care Team Providers Name Role Phone Earline Colbert MD Primary Care Provider Encounter Details Date Type Department Care Team Description 01/12/2020 Telephone [place] [facility] [place] Davila, [facility] [place] [address] [facility] [phone] UR[address] DEPT. [place], [place] [address] (Wo rk) Social History Tobacco Use Types Packs/Day Years Used Date Smoking Tobacco: Never Smokeless Tobacco: Never Alcohol Use Standard Drinks/Week Comments No 0 (1 standard drink = 0.6 oz pure alcoho l) Sex Assigned at Date Recorded Not on file documented as of this encounter Miscellaneous Notes Telephone Encounter - Carolin Lau RN - 01/12/2020 9:55 AM EDT Call placed to patient with the advice per [facility] listed below. Patient has a negative urine culture onfile from last week. She declines elmiron instillations at this time due to travel issues. She has been off Neurontin for some time, but will restart it. She will start at 100mg tid and titrate upward to 300mg tid as tolerated. Advised that this will likely cause drowsiness and she should take cautionwhen driving or operating machinery. Script sent to preferred pharmacy. Telephone Encounter - Libia Lebron - 01/12/2020 8:32 AM EDT Pt called stating that her IC is really acting up and she is in a lot of pain. Would like to know what she can take since her cre levels are up. She can be reached at [phone] documented in this encounter Plan of Treatment Not on filedocumented as of this encounter Visit Diagnoses Diagnosis IC (interstitial cystitis) Chronic interstitial cystitis documented in this encounter Care Teams Manager Mac Relationship Specialty Start Date End Date Earline Colbert MD PCP - General 09/08/13 [address] [place] [address] documented as of this encounter
--- OUTSIDE RECORDS SUMMARY | 2022-06-07 14:23 | XMS_ITS | Encounter Summary ---
:1970 Author Organization [facility] [place] [address] Care Team Providers Name Role Phone Earline Colbert MD Primary Care Provider Reason for Visit Reason Comments Follow-up Encounter Details Date Type Department Care Team Description 01/05/2014 Follow-Up Urology at [facility] Harsh Ngo, Nephrolithiasis; [facility] BOLA Carreno Pelvic pain in female; Drive [facility] Gross hematuria; [place] [address] Lower urinary tract symptoms (LUTS) [phone] UROLOGY DEPT. [place], [place] [address] (Wo rk) Social History Tobacco Use Types Packs/Day Years Used Date Smoking Tobacco: Never Smokeless Tobacco: Never Alcohol Use Standard Drinks/Week Comments No 0 (1 standard drink = 0.6 oz pure alcoho l) Sex Assigned at Date Recorded Not on file documented as of this encounter Last Filed Vital Signs Vital Sign Reading Time Taken Comments Blood Pressure 140/80 01/05/2014 10:07 AM EDT Pulse 76 01/05/2014 10:07 AM EDT Temperature - - Respiratory Rate - - Oxygen Saturation - - Inhaled Oxygen Concentration - - Weight 155.6 kg (343 lb) 01/05/2014 10:07 AM EDT Height 172.7 cm (5' 8) 01/05/2014 10:07 AM EDT Body Mass Index 52.15 01/05/2014 10:07 AM EDT documented in this encounter Progress Notes Harsh Jeni Ev, WRAPPER LAYER - 01/05/2014 10:21 AM EDT Ms. Cherelle Vaughan is a 43 year old woman who presents for diagnosis of IC treatments. She started having pelvic pain in 01/2013, and had a culture proven e.coli UTI at that time which wastreated with cipro. Her follow up cultures were negative. She continued to have gross hematuria. Shesaw Dr. Brandt on the July,. She got scoped then and her bladder was inflamed then per her report. Office cystoscopy was attempted by Dr. Norris at initial visit, but she was unable totolerate this so she had cysto and bladder biopsies in the OR on 10/08/[address] Norris which showed severe acute and chronic inflammation with ulcerative changes. She was sent to me for discussion oftreatment options. Bladder biopsy pathology: [facility] Provider: ANGELICA NORRIS III Pt. Name: CHERELLE VAUGHAN Acc #: [id number] Pt. Col Date: 10/08/2013 /Sex: 1970,(43 years),Female Rec Date: 10/08/2013 LOC: [facility] ---Pathologic Diagnosis--- A - Anterior bladder wall, biopsy: - Fragments of squamous mucosa with ulceration and underlying granulation tissue. - Acute and chronic cystitis. CTU for her gross hematuria in 08/04 showed bladder wall thickening and bilateral nonobstructing renal stones. No other concerning findings. She is on abx for a UTI at this time, treated for a UTI. She has pain with her menses. 2/10 pain today, 10/10 around her menses and she has to take oxycodone. She is on trospium chloride ER 60 mg, as well as gabapentin 100 mg po three times a day. Relation to stress and dehyration. She is drinking 1/2gallon of fluid per day-water. She is not sexually active- passed. She voids every 2 hours during the day, 0 times at night. This was more before the sanctura 20 mg atnight-since prior to surgery. She is on claritin. She takes pain medication 2 times per day, back from 4 times per day. She leaks with coughing, laughing and sneezing, but this is less than when she was. She leaks less with the sanctura. She has lost 52 lbs also. Her hgb A2c is 6.1. She is off metformin. Bowels every other day, she strains. No supplement. She had a positive culture with her PCP. She is off NSAIDS given recent decrease in renal function. cre of 1.63. She is on glibyzide for her DM-doing well. Energy down a bit. She is going to see Dr. Smith about her stones. She has a history of ureteroscopy/laser litho for stone in . No issues since. Patient Active Problem List Diagnosis Code ??? Diabetes mellitus 250.00 ??? Hypertension 401.9 ??? Nephrolithiasis 592.0 ??? Simple ovarian cyst 620.2 ??? Morbid obesity with BMI of 50.0-59.9, adult 278.01, V85.43 ??? Pelvic pain in female 625.9 ??? Gross hematuria 599.71 ??? Lower urinary tract symptoms (LUTS) 788.99 History Substance Use Topics ??? Smoking status: Never Smoker ??? Smokeless tobacco: Never Used ??? Alcohol Use: No Current Outpatient Prescriptions on File Prior to Visit Medication Sig Dispense Refill ??? Trospium (SANCTURA XR) 60 mg Cp24 Take 1 capsule by mouth daily. 60 capsule 11 ??? gabapentin (NEURONTIN) 100 mg capsule Take 1 capsule by mouth 3 times daily. 90 capsule 12 ??? glipiZIDE (GLUCOTROL) 5 mg tablet Take [...] tablet by mouth daily. 30 tablet 12 Medical History depression diabetes Surgical History URS-Left Shoulder surgery Tubal ligation Social History 3 kids, all vaginal No alcohol No illicit drugs No smoking Family hx No gu hx EXAMINATION: Filed Vitals: 01/05/14 1007 BP: 140/80 Pulse: 76 General: Oriented to person, place and time. Healthy appearance. Color normal. No significant skin lesions. Abdomen: obese, tender suprapubically, no flank pain or other pain. No masses : deferred (11/02: normal external genitalia. Urethral discomfort. Could not get to her trigone. Nopelvic floor discomfort. Well supported uterus) Musculoskeletal: grossly normal Neurologic: grossly normal UA: not obtained PVR: deferred 11/02: 50 cc with scanner Imaging: CT from j: 08/04: There is a left lower pole stone of 1.2 cm Assessment: 43 year old female with cystitis and likely IC Lower pole renal stone Gross hematuria Recommendations: Will have her see Dr. Smith for stone management, renal US at that time/KUB, next available. We discussed her bladder inflammation, biopsy results, and symptoms. I will also get her most recenturine culture result given she is on keflex now 1. We spent some time discussing the diagnosis of IC. We reviewed what is known about this condition, that while there is uncertainty regarding its etiology, that it results in inflammation of the tissues lining the bladder resulting in irritative voiding symptoms and chronic bladder/pelvic pain. 2. She has a copy of the IC list and behavioral therapies at home. 3. We briefly reviewed some of the medical therapies for IC including NSAIDs, Elavil (which she has an allergy to), neurontin (increasing to 300 mg po three times a day around the time of her menses when she has more pain), histamine blockers (she will continue claritin), and Elmiron (oral and instillations). She would like to try elmiron 100 mg po three times a day-teaching done and script faxed. She would like to continue on claritin, Sancturia but switch to XR 60 mg nightly. She will let me know if she has issues with the medications. 4. She generally feels her bladder is improved 5. We will defer PT at this time 6. We discussed benefit of instillations in quicker bladder healing. She will defer. 7. All the patient's questions were answered to her satisfaction. She could not void today, so will send UA and cytology for hematuria at her next visit. We will follow her out to 09/2015 for her hematuria. I will see her back in 4 months, sooner with concerns. I will have her scheduled to see Dr. Smith next available. Ev Ngo APRN documented in this encounter Plan of Treatment Not on filedocumented as of this encounter Visit Diagnoses Diagnosis Nephrolithiasis Calculus of kidney Pelvic pain in female Unspecified symptom associated with fema le genital organs Gross hematuria Lower urinary tract symptoms (LUTS) Other symptoms involving urinary system documented in this encounter Care Teams Mail Teller Relationship Specialty Start Date End Date Earline Colbert MD PCP - General 09/08/13 [address] [place] [address] documented as of this encounter
--- OUTSIDE RECORDS SUMMARY | 2022-06-07 14:23 | XMS_ITS | Encounter Summary ---
:1970 Author Organization [facility] [address] Care Team Providers Name Role Phone Earline Colbert MD Primary Care Provider Encounter Details Date Type Department Care Team Description 01/04/2020 Orders Only Urology at [facility] Ev Davila, [facility] [place] [address] [facility] [phone] UROLOG[address] DEPT. [place], [place] [address] (Wo rk) Social History Tobacco Use Types Packs/Day Years Used Date Smoking Tobacco: Never Smokeless Tobacco: Never Alcohol Use Standard Drinks/Week Comments No 0 (1 standard drink = 0.6 oz pure alcoho l) Sex Assigned at Date Recorded Not on file documented as of this encounter Progress Notes Ev Davila APRN - 01/04/2020 2:15 PM EDT She has some discomfort today. Will get a urine culture at her PCP office. She will start atarax, wediscussed the issues with her celexa and medication interactions. She understands. If she does not feel well on celexa, she will not take it. She is off diflucan and cipro x 1 week. Will get the repeaturine culture and will start atarax I called her pcp office to see if she could do a culture there. They are content to have her do thatand will contact her. documented in this encounter Plan of Treatment Not on filedocumented as of this encounter Visit Diagnoses Not on filedocumented in this encounter Care Teams It Administrator Relationship Specialty Start Date End Date Earline Colbert MD PCP - General 09/08/13 [address] [place] [address] documented as of this encounter
--- OUTSIDE RECORDS SUMMARY | 2022-06-07 14:23 | XMS_ITS | Encounter Summary ---
:1970 Author Organization [facility] [place] [address] Care Team Providers Name Role Phone Earline Colbert MD Primary Care Provider Reason for Referral Diagnostic Test (Routine) - Closed Specialty Diagnoses / Procedures Referred By Contact Refer red To Contact Radiology Diagnoses Hydronephrosis, left Ev Davila [facility] Rad Ct Scan Procedures CT Abdomen & Pelvis wo Contrast [facility] [place] [address] [place] [address] Referral ID Status Reason Start Date Expiration Date Visits V isits Requested Authorized [id number] Closed Specialty 01/27/2020 07/24/2020 1 1 Service Requested Encounter Details Date Type Department Care Team Description 01/26/2020 Telephone Urology at [facility] Ev Davila [facility] [place] [address] [facility] [phone] UROLOGY DEPT. [place], [place] [address] (Wo rk) Social History Tobacco Use Types Packs/Day Years Used Date Smoking Tobacco: Never Smokeless Tobacco: Never Alcohol Use Standard Drinks/Week Comments No 0 (1 standard drink = 0.6 oz pure alcoho l) Sex Assigned at Date Recorded Not on file documented as of this encounter Miscellaneous Notes Telephone Encounter - Ev Davila APRN - 01/26/2020 3:27 PM EDT Called pt with renal US results: IMPRESSION No prior renal studies available for comparison. 1. There is marked left pelvicaliectasis with thin rim of echogenic renal parenchyma suggestive of long standing obstruction. There is associated dilatation of the proximal left ureter. 2. The right kidney contains nonobstructing renal calculi, largest within a simple cyst measuring 9.4 mm in greatest dimension. 3. Distended bladder is normal in contour. Her cre is 1.57 with GFR of 38. I have ccd this to her pcp. cre in 09/2013 was 1.63 and GFR of 34. CTU for her gross hematuria in 08/04 showed bladder wall thickening and bilateral nonobstructing renal stones. No other concerning findings. She started to have an increase in bladder symptoms in 07/2019. She is on neurontin 300 tid , elmiron once daily, Sanctrua xr 60 mg, also atarax [address] abd/pel without contrast given cre jace to see what is causing the obstruction and see if it is astone that may need to be surgically managed. [facility] today documented in this encounter Plan of Treatment Not on filedocumented as of this encounter Results CT Abdomen & Pelvis wo Contrast (01/28/2020 3:02 PM EDT) Anatomical Region Laterality Modality Abdomen, Pelvis Computed Tomography Specimen (Source) Anatomical Location Collection Method / Collectio n Time Received Time / Laterality Volume Impressions 01/28/2020 3:24 PM EDT Bilateral renal nonobstructing calculi. No significant RIGHT hydronephrosis. RIG HT renal stone appears within a low-attenuation cyst. Poorly visualized due to lack of contrast and patient body habitus. LEFT kidney without significant renal pa renchyma visualized. Multiple low-attenuation renal cortical cysts and mild central pelviectasis. Given inability to administer contrast, MRI may be helpful. Thank you for letting us participate in the care of this patient. For questions regarding this report, please contact cristiana e number below. ? Narrative 01/28/2020 3:24 PM EDT EXAMINATION: CT ABDOMEN AND PELVIS WO CONTRAST CLINICAL HISTORY: Hydronephrosis hx of renal stones. renal US showing sev ere left hydro. ? ureteral stone. cre 1.6 TECHNIQUE: Helical CT of the abdomen and pelvis was performed without the use of intravenous contrast. ??Multiplanar refo rmatted images were generated. COMPARISON: Ultrasound renal/bladder 01/25 FINDINGS: The absence of intravenous contrast limi ts the evaluation of solid viscera and vasculature. Patient body habitus makes visualization more difficult on both CT and renal ultrasound. Right kidney/ureter: There is a RIGHT mi dpole nonobstructing renal calculi, approximately 9 mm within an ill-defined low-attenuation, likely cyst. Cyst is very difficult to visualize noncontrast likely measures approximately 2 cm area There is cortical scarring associated. G iven the lack of intravenous contrast this cannot be further characterized. Th ere is no pelvicaliectasis and no hydronephrosis. Left kidney/ureter: Mild LEFT pelviectas is centrally. Difficult to characterize noncontrast. There are multiple low-atte nuation renal cortical cysts ??with marked cortical thinning. There is a den se posterior LEFT midpole cortical stone on the periphery of the LEFT kidney divya uring 5 mm. An additional lower pole nonobstructing peripheral cortical 7 mm stone. Urinary Bladder: No bladder or proximal urethral calculi. Lower chest: Normal. Liver: Normal. Bile ducts: Nondilated. Gallbladder: No calcified gallstones. No rmal caliber wall. Spleen , Adrenals and pancreas are unrem arkable Vasculature: No aneurysm. Lymph Nodes: No enlarged lymph nodes. Bowel: Nondilated, no wall thickening. ? ? Peritoneum and mesentery: No ascites, fr ee air, or loculated fluid collection. Abdominal wall: Normal. Reproductive organs: Normal. Osseous structures: No suspicious lesion s. Procedure Note Betsy Arce MD - 01/28/2020Forma tting of this note might be different from the original. EXAMINATION: CT ABDOMEN AND PELVIS WO CO NTRAST CLINICAL HISTORY: Hydronephrosis hx of renal stones. renal US showing sev ere left hydro. ? ureteral stone. cre 1.6 TECHNIQUE: Helical CT of the abdomen and pelvis was performed without the use of intravenous contrast. Multiplanar reform atted images were generated. COMPARISON: Ultrasound renal/bladder 01/25 FINDINGS: The absence of intravenous contrast limi ts the evaluation of solid viscera and vasculature. Patient body habitus makes visualization more difficult on both CT and renal ultrasound. Right kidney/ureter: There is a RIGHT mi dpole nonobstructing renal calculi, approximately 9 mm within an ill-defined low-attenuation, likely cyst. Cyst is very difficult to visualize noncontrast likely measures approximately 2 cm area There is cortical scarring associated. G iven the lack of intravenous contrast this cannot be further characterized. Th ere is no pelvicaliectasis and no hydronephrosis. Left kidney/ureter: Mild LEFT pelviectas is centrally. Difficult to characterize noncontrast. There are multiple low-atte nuation renal cortical cysts with marked cortical thinning. There is a den se posterior LEFT midpole cortical stone on the periphery of the LEFT kidney divya uring 5 mm. An additional lower pole nonobstructing peripheral cortical 7 mm stone. Urinary Bladder: No bladder or proximal urethral calculi. Lower chest: Normal. Liver: Normal. Bile ducts: Nondilated. Gallbladder: No calcified gallstones. No rmal caliber wall. Spleen , Adrenals and pancreas are unrem arkable Vasculature: No aneurysm. Lymph Nodes: No enlarged lymph nodes. Bowel: Nondilated, no wall thickening. Peritoneum and mesentery: No ascites, fr ee air, or loculated fluid collection. Abdominal wall: Normal. Reproductive organs: Normal. Osseous structures: No suspicious lesion s. IMPRESSION Bilateral renal nonobstructing calculi. No significant RIGHT hydronephrosis. RIG HT renal stone appears within a low-attenuation cyst. Poorly visualized due to lack of contrast and patient body habitus. LEFT kidney without significant renal pa renchyma visualized. Multiple low-attenuation renal cortical cysts and mild central pelviectasis. Given inability to administer contrast, MRI may be helpful. Thank you for letting us participate in the care of this patient. For questions regarding this report, please contact e number below. Ev Ngo APRN IMG CT ORDERABLES documented in this encounter Visit Diagnoses Diagnosis Hydronephrosis, left Hydronephrosis Hydronephrosis, left Hydronephrosis documented in this encounter Care Teams Cnc Milling Machinist Relationship Specialty Start Date End Date Earline Colbert MD PCP - General 09/08/13 [address] [place] [address] documented as of this encounter
--- OUTSIDE RECORDS SUMMARY | 2022-06-07 14:23 | XMS_ITS | Encounter Summary ---
:1970 Author Organization [facility] [place] [address] Care Team Providers Name Role Phone Earline Colbert MD Primary Care Provider Encounter Details Date Type Department Care Team Description 01/04/2020 Telephone Urology at [facility] Ev Davila, [facility] [place] [address] [facility] [phone] UROLOGY DEPT. [place], [place] [address] (Wo rk) Social History Tobacco Use Types Packs/Day Years Used Date Smoking Tobacco: Never Smokeless Tobacco: Never Alcohol Use Standard Drinks/Week Comments No 0 (1 standard drink = 0.6 oz pure alcoho l) Sex Assigned at Date Recorded Not on file documented as of this encounter Miscellaneous Notes Telephone Encounter - Libia Lebron - 01/04/2020 10:02 AM EDT Pt called stating that she would like a prescription for Atarax, as discussed with ANABEL. She uses [facility] in [place], [place]. She can be reached at [phone] documented in this encounter Plan of Treatment Not on filedocumented as of this encounter Visit Diagnoses Not on filedocumented in this encounter Care Teams Bisque Ware Dipper Relationship Specialty Start Date End Date Earline Colbert MD PCP - General 09/08/13 [address] [place] [address] documented as of this encounter
--- OUTSIDE RECORDS SUMMARY | 2022-06-07 14:23 | XMS_ITS | Encounter Summary ---
:1970 Author Organization [facility] [place] [address] Care Team Providers Name Role Phone Earline Colbert MD Primary Care Provider Encounter Details Date Type Department Care Team Description 02/09/2020 Telephone Urology at [facility] Ev Davila, [facility] [place] [address] [facility] [phone] UROLOGY DEPT. [place], [place] [address] (Wo rk) Social History Tobacco Use Types Packs/Day Years Used Date Smoking Tobacco: Never Smokeless Tobacco: Never Alcohol Use Standard Drinks/Week Comments No 0 (1 standard drink = 0.6 oz pure alcoho l) Sex Assigned at Date Recorded Not on file documented as of this encounter Miscellaneous Notes Telephone Encounter - Gildardo Dunbar - 02/09/2020 10:12 AM EDT PHONE: [phone] Pt calls looking for the results of her scan from 02/08/20. Will forward to nursing staff as Ev is on vacation. documented in this encounter Plan of Treatment Not on filedocumented as of this encounter Visit Diagnoses Not on filedocumented in this encounter Care Teams Industrial Hire Sales Assistant Relationship Specialty Start Date End Date Earline Colbert MD PCP - General 09/08/13 [address] [place] [address] documented as of this encounter
--- OUTSIDE RECORDS SUMMARY | 2022-06-07 14:23 | XMS_ITS | Encounter Summary ---
:1970 Author Organization [facility] [place] [address] Care Team Providers Name Role Phone Earline Colbert MD Primary Care Provider Reason for Visit Reason Comments Follow-up Encounter Details Date Type Department Care Team Description 10/28/2013 [place] [facility], Pelvic pain in female; [facility] [place] Carreno Gross hematuria; Drive [facility] Lower urinary tract symptoms ([place]UTS) [place] [address] UROLOGY DEPT. [place], [place] [address] (Wo rk) Social History Tobacco Use Types Packs/Day Years Used Date Smoking Tobacco: Never Smokeless Tobacco: Never Alcohol Use Standard Drinks/Week Comments No 0 (1 standard drink = 0.6 oz pure alcoho l) Sex Assigned at Date Recorded Not on file documented as of this encounter Last Filed Vital Signs Vital Sign Reading Time Taken Comments Blood Pressure 144/85 10/28/2013 9:55 AM EDT Pulse 90 10/28/2013 9:55 AM EDT Temperature - - Respiratory Rate 20 10/28/2013 9:55 AM EDT Oxygen Saturation - - Inhaled Oxygen Concentration - - Weight 152.9 kg (337 lb) 10/28/2013 9:55 AM EDT Height 172.7 cm (5' 8) 10/28/2013 9:55 AM EDT Body Mass Index 51.24 10/28/2013 9:55 AM EDT documented in this encounter Patient Instructions Patient InstructionsMaximoEv FloresBOLA - 10/28/2013 10:18 AM EDT Behavioral Therapies The following foods may increase bladder overactivity and contribute to your lower urinary tract symptoms, as well as urinary incontinence. Please moderate in your diet: Alcohol, coffee, tea, citrus fruits and juices, tomatoes, spicy foods, sugar, honey, chocolate, onions, artificial sweeteners (especially nutrasweet), vinegar, aged or fermented foods, highly acidic foods Some fruits may contribute as well: apples, cantaloupe, strawberries, cranberries, grapes, guava, peaches, pineapples and plums Chamomile or peppermint teas are ok. Blueberry and pear juice are ok Please limit fluid to 64 oz per day, mostly water. Cut back on fluids after 6 pm (preferrably sips). If you have dry mouth, try sugar free candies, gum, or an oral moisturizer (like Biotene). Please get regular dental checks especially if you are on medications that make your mouth dry Timed void every 2 hours during the day, double void (take time to feel you empty fully) by getting up and sitting back down, or changing position. Remember, the best time to void is PRIOR to having the urge. Move your bowels daily. Take a fiber supplement like metamucil, or you could try Miralax. Please usethese per the recommendations on the back of the package. Trial of physical therapy and biofeedback may be helpful for you Weight loss-has been shown to decrease the incidence of urinary incontinence. Tight Diabetes control Keep a voiding diary of your symptoms (please see handout). Further Treatment Options Consideration of medical therapies including: amitriptyline-which you can NOT take, neurontin, elmiron, instillations. We will wait on NSAIDs given your renal function. Continue claritin We will change the sanctura to 60 mg XR at bedtime. Stop the 20 mg at bedtime dosing Start neurontin 100 mg three times a day. Call us for a urine culture order if you think you have a urinary infection (burning, fever/chills, kidney pain, blood in your urine). We will fax an order to your local hospital or come here so we canfollow your urine culture results. Call us if you have blood in your urine that you can see at any time. documented in this encounter Progress Notes Ev Davila APRN - 10/28/2013 9:55 AM EDT Ms. Cherelle Vaughan is a 43 year old woman who presents for diagnosis of IC treatments. She started having pelvic pain in 01/2013, and had a culture proven e.coli UTI at that time which wastreated with cipro. Her follow up cultures were negative. She continued to have gross hematuria. Shesaw Dr. Brandt on the 13 of August. She got scoped then and her bladder was inflamed then per her report. Office cystoscopy was attempted by Dr. Norris at initial visit, but she was unable to tolerate this so she had cysto and bladder biopsies in the OR on 10/08/[address] Norris which showed severe acute and chronic inflammation with ulcerative changes. She was sent to me for discussion of treatment options. Bladder biopsy pathology: [facility] Care Provider: ANGELICA NORRIS III Pt. Name: CHERELLE VAUGHAN Acc #: [id number] Pt. Col Date: 10/08/2013 /Sex: 1970,(43 years),Female Rec Date: 10/08/2013 LOC: [facility] SURGICAL PATHOLOGY ---Pathologic Diagnosis--- A - Anterior bladder wall, biopsy: - Fragments of squamous mucosa with ulceration and underlying granulation tissue. - Acute and chronic cystitis. CTU for her gross hematuria in 08/04 showed bladder wall thickening and bilateral nonobstructing renal stones. No other concerning findings. Her bladder symptoms including 4/10 discomfort, SP. Worse with menses or bowel movements. Relation to stress and dehyration. She is drinking 1 gallon of fluid per day-water. She is not sexually active- passes. She voids every 2 hours during the day, 2-3 times at night. This was more before the sanctura 20 mg at night-since prior to surgery. She is on claritin. She takes pain medication 2 times per day, back from 4 times per day. Pain worse with full bladder, 7/10 pain then. She leaks with coughing, laughingand sneezing. She leaks less with the sanctura. She has lost 52 lbs also. Her hgb A2c is 6.1. She isoff metformin. Bowels every other day, she strains. No supplement. She is off NSAIDS given recent decrease in renal function. cre of 1.63. Energy down a bit. She is going [...] to Visit Medication Sig Dispense Refill ??? glipiZIDE (GLUCOTROL) 5 mg tablet Take [...] Use as instructed ??? Lancets Misc [place] [facility] [place]; Combo Route) route daily as needed. ??? trospium (SANCTURA) 20 mg tablet Take 1 tablet by mouth 2 times daily. 30 tablet 3 ??? loratadine (CLARITIN) 10 mg tablet Take 1 tablet by mouth daily. 30 tablet 12 Review of Systems General Health: good. 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 CVS: No chest pain or LOYA. No claudication. GI: Normal appetite and bowels. MUSCULOSKELETAL: No joint or muscle aches or dysfunction. SKIN: denies rashes, moles, lesions, denies hair or nail changes PSYCH: + depression, SI/HI Medical History depression diabetes Surgical History URS-Left Shoulder surgery Tubal ligation Social History 3 kids, all vaginal No alcohol No illicit drugs No smoking Family hx No gu hx EXAMINATION: There were no vitals filed for this visit. General: Oriented to person, place and time. Healthy appearance. Color normal. No significant skin lesions. Abdomen: obese, tender suprapubically, no flank pain or other pain. No masses : normal external genitalia. Urethral discomfort. Could not get to her trigone. No pelvic floor discomfort. Well supported uterus Musculoskeletal: grossly normal Neurologic: grossly normal UA: no tobtained PVR: 50 cc with scanner Imaging: CT from j: 08/04: There is a left lower pole stone of 1.2 cm Assessment: 43 year old female with cystitis and likely IC Lower pole renal stone Gross hematuria Recommendations: Will have her see Dr. Smith for stone management. We discussed her bladder inflammation, biopsy results, and symptoms. 1. We spent some time discussing the diagnosis of IC. Her symptoms definitely sound compatible with this diagnosis. We reviewed what is known about this condition, that while there is uncertainty regarding its etiology, that it results in inflammation of the tissues lining the bladder resulting in irri tative voiding symptoms and chronic bladder/pelvic pain. 2. We reviewed the IC diet (handout given) and the important contribution of stress in IC flares. She will work on behavior modification, particularly tea/coffee, soda, cranberry supplements, citrus, hot/spicy/tomato-based foods. We also talked about minimizing bladder overdistention, as well as bowel modification. 3. We discussed moderation of stress to help modify her symptoms. I referred her to the ICA website as well for a full list of food recommendations. 4. We briefly reviewed some of the medical therapies for IC including NSAIDs, Elavil (which she has an allergy to), neurontin, histamine blockers, and Elmiron (oral and instillations). She would like to continue on claritin, Sancturia but switch to XR 60 mg nightly, and then add in neurontin 100 mg pothree times a day. Teaching done and script faxed. She will let me know if she has issues with the medications. We discussed the role of PT for pelvic floor relaxation and pain moderation. At this time, we will defer, but this may be useful in the future. We discussed benefit of instillations in quicker bladder healing. She will defer. 5. All the patient's questions were answered to her satisfaction. UA and cytology at next visit for follow up of hematuria. We will follow her out to 09/2015 for her hematuria. I will see her back in 2 months, sooner with concerns. I will have her scheduled to see Dr. Smith next available. Ev Ngo APRN documented in this encounter Plan of Treatment Not on filedocumented as of this encounter Visit Diagnoses Diagnosis Pelvic pain in female Unspecified symptom associated with fema le genital organs Gross hematuria Lower urinary tract symptoms (LUTS) Other symptoms involving urinary system documented in this encounter Care Teams Gasket Inspector Relationship Specialty Start Date End Date Earline Colbert MD PCP - General 09/08/13 [address] [place] [address] documented as of this encounter
--- OUTSIDE RECORDS SUMMARY | 2022-06-07 14:23 | XMS_ITS | Encounter Summary ---
:1970 Author Organization [facility] [place] [address] Care Team Providers Name Role Phone Earline Colbert MD Primary Care Provider Encounter Details Date Type Department Care Team Description 05/11/2020 Telephone Urology [place] [facility] [place] Chamberlain MD [facility] [place] [address] [place] [address] [phone] (Wo rk) Social History Tobacco Use Types Packs/Day Years Used Date Smoking Tobacco: Never Smokeless Tobacco: Never Alcohol Use Standard Drinks/Week Comments No 0 (1 standard drink = 0.6 oz pure alcoho l) Sex Assigned at Date Recorded Not on file documented as of this encounter Miscellaneous Notes Telephone Encounter - Carolin Lau RN - 05/11/2020 2:01 PM EDT Call returned to patient. She is complaining of strong odor to her urine, but no other symptoms. Advised that no urine culture is needed at this time. She is catheterizing for volumes of 50cc daily. Advised that it is fine to switch to every other day cathing with lavage. Requested a call back if she notices any other symptoms. She agrees with the plan. Telephone Encounter - Lbiia Lebron - 05/11/2020 1:51 PM EDT Patient calls wondering if she should have a clean catch urine sample cultured when she is at primary care appointment Saturday (05/13) in [facility] 1st 3 days she got 100cc of urine with straight cath. The last 3 days she got 50cc. She is wonderingif she can do this every other day when she does [place]. documented in this encounter Plan of Treatment Not on filedocumented as of this encounter Visit Diagnoses Not on filedocumented in this encounter Care Teams Heading And Priming Tool Setter Relationship Specialty Start Date End Date Earline Colbert MD PCP - General 09/08/13 [address] [place] [address] documented as of this encounter
--- OUTSIDE RECORDS SUMMARY | 2022-06-07 14:23 | XMS_ITS | Encounter Summary ---
:1970 Author Organization [facility] [place] [address] Care Team Providers Name Role Phone Earline Colbert MD Primary Care Provider Encounter Details Date Type Department Care Team Description 04/25/2020 Telephone Urology at [facility] [place] Patricia Chamberlain MD [facility] [place] [address] [place] [id number] [phone] (Wo rk) Social History Tobacco Use Types Packs/Day Years Used Date Smoking Tobacco: Never Smokeless Tobacco: Never Alcohol Use Standard Drinks/Week Comments No 0 (1 standard drink = 0.6 oz pure alcoho l) Sex Assigned at Date Recorded Not on file documented as of this encounter Miscellaneous Notes Telephone Encounter - Sim Do LPN - 04/28/2020 9:47 AM EDT [facility] lab called a critical lab value for urine culture . E-coli with ESBL activity. Awaiting final Lab report to be faxed. Will notify Dr. Chamberlain. Telephone Encounter - Kathrin Cruz - 04/25/2020 3:31 PM EDT PHONE: [phone] Pt calls returning Carolin's call. She would like to have her urine culture done at her PCP's office and her preferred pharmacy is [facility] in [place], [place]. documented in this encounter Plan of Treatment Not on filedocumented as of this encounter Visit Diagnoses Not on filedocumented in this encounter Care Teams Clerical Manager Relationship Specialty Start Date End Date Earline Colbert MD PCP - General 09/08/13 [address] [place] [address] documented as of this encounter
--- OUTSIDE RECORDS SUMMARY | 2022-06-07 14:23 | XMS_ITS | Encounter Summary ---
:1970 Author Organization [facility] Address [facility] [place] [address] Care Team Providers Name Role Phone Earline Colbert MD Primary Care Provider Encounter Details Date Type Department Care Team Description 01/12/2021 Office Visit Urology [place] [facility] [place] Patricia Chamberlain IC (interstitial cystitis); [facility] Lower urinary tract symptoms (LUTS); Drive [facility] Pelvic pain in female; [place], [place] Morbid obesity with BMI of 50.0-59.9, ad ult; [address] [place] [address] History of UTI [phone] Social History Tobacco Use Types Packs/Day Years [...] Pulse 93 01/12/2021 3:39 PM EDT Temperature - - Respiratory Rate - - Oxygen Saturation - - Inhaled Oxygen Concentration - - Weight 164.7 kg (363 lb) 01/12/2021 3:39 PM EDT Height - - Body Mass Index 55.19 04/08/2020 10:16 AM EDT documented in this encounter Progress Notes Patricia Chamberlain MD - 01/12/2021 3:40 PM EDT UROLOGY CLINIC VISIT CC:recurrent UTI / [...] scope her at her first visit to [facility], but she could not tolerate it,so she [...] culture grew <50K e coli, contaminated specimen Cysto with mucosal ulceration / trabeculation 05/03/20: OR for bx Findings: areas of erythema and fibrinous tissue at anterior bladder (2cm) and posterior trigone biopsied and fulgurated, remainder of bladder unremarkable, bilateral orthotopic ureteral orifices Squamous metaplasia with acute inflammation and focal associated fragment of granulation tissue. - There is no evidence of malignancy or dysplasia. B - Posterior Wall, Bladder, biopsy (1) - Squamous metaplasia. - Follicular chronic cystitis. - There is no evidence of malignancy or dysplasia. Electronically signed by: MD Rin, Regino Stoner Verified: 05/10/2020 Pathologist Performed at: -[facility] Dept. of Pathology, [place], [place] ?? 05/17/20: started on self bladder irrigations 08/18/2020: RTC - she has been CIC-ing 1 x per day (her mother caths due to her being unable to reach with body habitus. They do gentamicin irrigatiosn three times weekly. She has one month left of these. She has not had a UTI with fevers, however she continues to have suspected UTI at least q 2 months to every other month with symptoms including blood in urine, flank pain. She does not have dysuria. 01/12/21: RTC - she has been doing well. Mom cathing 1 x per day. Has not been doing irrigations but doing well overall. She does not feel she has had UTI symptoms No gross hematuria. , joined a gym- working out before work. She is working on weight loss BMI down to 55 from 58. Cultures 01/27/20: 10-49K Mixed +GBS [facility] indicate: [...] whitney 01/20/13: 10-50K e.coli lepe sensitive ?? 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 Recurrent stones HTN PAST SURGICAL HISTORY Left shoulder surgery Past Surgical History: Procedure Laterality Date ??? LITHOTRIPSY ? ? PRO CYSTO W URETEROSCOPY &/OR PYELOSCOPY, DX 10/08/2013 CYSTOURETEROSCOPY, DIAGNOSTIC performed by Duane Norris III, MD at [facility] MAIN OR ??? PRO CYSTOURETHROSCOPY, FULGUR .5-2CM LESN N/A 05/03/2020 CYSTO, FULGURATION OF BLADDER LESION, W OR W/O BX, 0.5 TO 2.0CM (WRVU 4.62) performed by Satinder Darby MD at [facility] MAIN OR ??? TONSILLECTOMY ??? [...] Feeling like bugs crawling on me ??? Petroleum Distillates Other (See Comments) Petroleum coated anything Swelling, rash skin and severe pain HOME MEDICATIONS Current Outpatient Medications on File Prior to Visit Medication Sig Dispense Refill ??? gabapentin (Neurontin) 300 mg Capsule Take 1 capsule by mouth 3 times daily. 270 capsule 3 ??? UNABLE TO FIND Instill 60 mLs into the bladder three times a week. instill into bladder via straight catheter and let sit for 1hr. Then urinate and resume CIC 1000 mL 11 ??? Syringe, Disposable, 60 mL Syringe 1 each by [facility] [place]Non-Drug; Combo Route) route once a week. 4 Syringe 11 ??? sterile water (Aqua Care Sterile Water) Solution Irrigate with 250 mLs as directed three times aweek. 4000 mL 11 ??? atorvastatin (Lipitor) 40 mg Tablet TAKE 1 TABLET BY MOUTH AT BEDTIME ??? metFORMIN (Glucophage) 500 mg Tablet Take 500 mg by mouth daily. ??? aspirin 81 mg Tablet, Chewable Take 81 mg by mouth daily. ??? furosemide (Lasix) 20 mg Tablet Take 20 mg by mouth as needed. ??? BACLOFEN ORAL Take 5 mg by mouth daily. ??? losartan (Cozaar) 50 mg Tablet Take 50 mg by mouth daily. ??? liraglutide (VICTOZA) 0.6 mg/0.1 mL (18 mg/3 mL) Pen Injector Inject 1.2 mg subcutaneously daily. ??? insulin degludec (TRESIBA FLEXTOUCH U-100 SUBQ) Inject 12 Units subcutaneously nightly. ??? Blood-Glucose Meter Misc 1 each by [facility] [place].(Non-Drug; Combo Route) route 4 times daily. ??? pentosan polysulfate (Elmiron) 100 mg Capsule Take 1 capsule by mouth daily. Take 1 capsule by mouth 3 times daily (before meals). 90 capsule 3 ??? Trospium (SANCTURA XR) 60 mg Cp24 Take 1 capsule by mouth daily. 60 capsule 11 ??? glipiZIDE (GLUCOTROL) 5 mg tablet Take 5 mg by mouth daily. ??? amLODIPine (NORVASC) 5 mg tablet Take 5 mg by mouth daily. Indications: Hypertension ??? citalopram (CELEXA) 20 mg tablet Take 20 mg by mouth daily. ??? Blood Sugar Diagnostic (ONE TOUCH ULTRA TEST) test strip by Other route daily as needed. Use as instructed ??? Lancets Misc by [facility] [place]Non-Drug; Combo Route) route daily [...] Patient Vitals for the past 24 hrs: Pulse BP 01/12/21 1539 93 118/66 PHYSICAL EXAM Estimated body mass index is 55.19 kg/m?? as calculated from the following: Height as of 04/08/20: 172.7 cm (5' 8). Weight as of this encounter: 164.7 kg (363 lb). GEN: Alert and oriented to person, place and time. NAD CV: Regular rate HEENT: NCAT PULM: Non labored breathing on RA ABD: Soft, non distended, non tender to palpation, large pannus : No CVA tenderness. NEURO: grossly normal, no focal deficits, moves all 4 extremities PVR: 03/11/20: 350 ml (shortly after voiding) UA: 08/19/20: Negative for blood, leukocyte esterase, + Nitrites 01/12/21: NA- pt asymptomatic IMAGING: I personally reviewed the following imaging: [...] cx mixed. No febrile infections. Asymptomatic today- She will continue saline abx irrigations. Discussed that when she has symptoms she should send urine for culture and micro and only treat if clean catch with- UA/micro showing +>10WBC and >50K of one organism. 2. Chronic urinary retention has mom doing CIC daily. 3.hx of IC - recent bx confirms chronic mucosal inflammation - working on behavioral management 5. Atrophic / non functioning left kidney - discussed options including obs vs. Nephrectomy and risks and benefits. We discussed that nephrectomy may not reduce the number of cystitis infections / would be high risk given current body habitus. She would like to continue to work on weight loss and revisit. 6. Bilateral non obstructing renal stones - appear parenchymal - discussed options including obs vs.Surgical intervention - she prefers obs at this time 7. H/o Micro hematuria - recent benign work up PLAN: Increase CIC as needed to BID RTC 6mo follow up I have extensively counseled her on reasons to call or return in the interim Patricia Chamberlain MD documented in this encounter Plan of Treatment Not on filedocumented as of this encounter Visit Diagnoses Diagnosis IC (interstitial cystitis) Chronic interstitial cystitis Lower urinary tract symptoms (LUTS) Other symptoms involving urinary system Pelvic pain in female Unspecified symptom associated with fema le genital organs Morbid obesity with BMI of 50.0-59.9, ad ult Morbid obesity History of UTI Personal history of urinary (tract) infe ction documented in this encounter Care Teams Arabic Linguist Relationship Specialty Start Date End Date Earline Colbert MD PCP - General 09/08/13 [address] [place] [address] documented as of this encounter
--- OUTSIDE RECORDS SUMMARY | 2022-06-07 14:23 | XMS_ITS | Encounter Summary ---
:1970 Author Organization [facility] [place] [address] Care Team Providers Name Role Phone Earline Colbert MD Primary Care Provider Encounter Details Date Type Department Care Team Description 10/08/2013 Surgery Main Operating Room Angelica Norris III, CYSTOURETEROSCOPY, [place] Epperson [facility] DIAGNOSTIC (WRVU 5.75) [facility] [place] [address] [place] [address] [phone] Social History Tobacco Use Types Packs/Day Years Used Date Smoking Tobacco: Never Smokeless Tobacco: Never Alcohol Use Standard Drinks/Week Comments No 0 (1 standard drink = 0.6 oz pure alcoho l) Sex Assigned at Date Recorded Not on file documented as of this encounter Last Filed Vital Signs Vital Sign Reading Time Taken Comments Blood Pressure 108/65 10/08/2013 11:19 AM EDT Pulse 103 10/08/2013 11:19 AM EDT Temperature 36.5 ??C (97.7 ??F) 10/08/2013 11:19 AM EDT Respiratory Rate 16 10/08/2013 11:19 AM EDT Oxygen Saturation 96% 10/08/2013 11:19 AM EDT Inhaled Oxygen Concentration - - Weight 155.1 kg (342 lb) 10/08/2013 11:19 AM EDT Height 172.7 cm (5' 8) 10/08/2013 11:19 AM EDT Body Mass Index 52 10/08/2013 11:19 AM EDT documented in this encounter Discharge Instructions Discharge InstructionsRadha León RN - 10/08/2013 2:18 PM EDT Wound infection may occur at any time, but it is evident more often 4-7 days after surgery. Signs and symptoms may involve one or more of the followin. Temperature elevation of more than 2 degrees or greater than 100.5 degrees F 2. Swelling and redness in or around the incision. 3. Increasing pain or discomfort in or around the incision. 4. Red streaks in the skin near the incision. 5. Pus or other foul drainage from the incision. 6. Foul smell from the incision. 7. Generalized body chills or fever. 8. Severe pain. If you suspect an incisional infection is present, are having problems, or have additional questionsor concerns, please call. POST ANESTHESIA INSTRUCTIONS Go home, rest, use caution on stairs. Change positions slowly. Do not smoke if you are alone. Diet light to regular as tolerated today. If nausea occurs start with clear liquids and progress slowly. No driving, operating machinery, alcoholic beverages and no important decisions for 24 hours. Monitor IV site for signs and symptoms of infection: increasing redness, swelling, foul drainage, ifoccurs contact M.D. Patients who have had endotrachial tubes (this tube, used by anesthesia department, is passed down your throat after you are asleep, to ensure safe air passage during your operation). A sore throat is normal due to the tube. Cold liquids or soothing lozenges will help ease the discomfort. The generalized muscle aches are due to the medication given to you just before the tube is inserted. As the medication wears off, you may develop muscle soreness, which usually goes away in 12-24 hours. Patient InstructionsJann Leonard MD - 10/08/2013 2:17 PM EDT Instructions following Cystoscopic Surgery with a Biopsy It is normal for you to have some irritation in your bladder and blood in your urine for the next few days. It may bother you when you urinate. This is normal; however, if you are passing large amountsof blood clots, bright red blood or are bleeding an unable to urinate please call our office at [phone] 5PM or [phone] after hours. Wound Care: None needed Activity: As tolerated by your comfort level. Call Doctor for: Please call if you have copious blood in your urine, severe back or side pain, painnot controlled by pain medications, persistent nausea and vomiting, or for any fevers greater than 101.3 F. The number for questions is [phone] before 5 PM weekdays and [phone] after 5 PM and weekends. Pain Medication: No driving for 8 hours after any dose of opioid pain medication if one was prescribed for you. Use Tylenol in addition to this medication if your pain is not totally controlled by the opioid. Due to your kidney dysfunction: You should stop taking Aleve and all other NSAIDs (non-steriodal anti- inflammatory drugs) such as Advil, Motrin, Ibuprofen. These are toxic to your kidney's and can cause a decline in your kidney function. If you feel that you need to restart these, please check with your primary care doctor. In addition, I recommend that you stop taking Lisinopril and discuss other options with your primarycare doctor. Follow-up: Please call [phone] (clinic number for appointments) to confirm date and time of your appointment if you do not receive your apointment in 1 week. documented in this encounter Medications at Time of Discharge Medication Sig Dispensed Refills Start Date End Date citalopram (CELEXA) 20 Take 20 mg by mouth 0 mg tablet daily. Blood Sugar Diagnostic by Other route daily 0 (ONE TOUCH ULTRA TEST) as needed. Use as test strip instructed Lancets Misc by [facility].(Non-Drug; 0 Combo Route) route daily as needed. loratadine (CLARITIN) Take 1 tablet by mouth 30 tablet 12 10 mg tablet daily. fluconazole (DIFLUCAN) Take 1 tablet by mouth 7 tablet 0 0 10/08/2013 10/15/2013 100 mg tablet daily for 7 days. oxyCODONE (ROXICODONE) Take 1-2 tablets by 30 tablet 0 09/2004/08/2020 5 mg immediate release mouth every 4 hours as tablet needed. metFORMIN (GLUCOPHAGE) Take 850 mg by mouth 2 0 10/26/2013 850 mg tablet times daily (with meals). trospium (SANCTURA) 20 Take 1 tablet by mouth 30 tablet 3 0 10/01/2013 10/28/2013 mg tablet 2 times daily. documented as of this encounter Progress Notes Radha León RN - 10/08/2013 3:07 PM EDT Patient out of bed to bathroom, tolerated well. Discharge instructions gone over with patient, she states that she understands. IV out per [facility] Policy. Patient states that she is ready to go home. Radha León RN - 10/08/2013 2:07 PM EDT 1358-Patient arrived from OR, assessment done, monitors placed, report received, see flow sheet for specifics. Will continue to monitor. documented in this encounter H&P Notes Jann Leonard MD - 10/08/2013 12:18 PM EDT Patient Name: Libia Vaughan Patient Age: 43 y.o. Birthdate: 1970 Admit date: 10/08/2013 Attending Physician: Angelica Norris III, MD 24 Hour H&P Update No changes in medical condition since last Urology office visit. Patient denies chest pain, increasing shortness of breath, nausea/vomitting/fevers/chills. Patient Vitals for the past 8 hrs: BP Temp Temp src Pulse Resp SpO2 Height Weight 10/08/13 1119 108/65 mmHg 36.5 ??C (97.7 ??F) Tympanic 103 16 96 % 172.7 cm (5' 8) 155.13 kg (342 lb) NAD Heart sounds are nml, no murmur appreciated Lungs clear to auscultation Abdomen is soft There are no rashes on the skin Extremities are symmetric A/P: Okay to proceed with surgery. Cysto/bladder biopsy. documented in this encounter Miscellaneous Notes Miscellaneous - Clarita Armenta - 10/08/2013 5:19 PM EDT OR Attestation - Angelica Norris III, MD - 10/08/2013 2:22 PM EDT Attestation: Case Date: 10/08/2013 I was present and I participated during the entire procedure (does not need to include opening and closing). ANGELICA NORRIS III, MD 10/08/2013 Op Note - Jann Leonard MD - 10/08/2013 2:08 PM EDT [facility] Operative Note Patient Name: Liiba Vaughan : [id number] MR#: [id number] Case Date: 10/08/2013 Surgeon: Surgeon(s) and Role: * Angelica Norris III, MD - Primary * Jann Leonard MD Preoperative diagnosis: CHRONIC CYSTITIS Postoperative diagnosis: CHRONIC CYSTITIS Procedure(s): CYSTOURETEROSCOPY, DIAGNOSTIC Anesthesia: General Findings: 1. Friable bladder consistent with chronic inflammatory process 2. Bleeding from anterior bladder wall and bladder neck - site biopsied and fulgurated 3. 18F bartlett catheter placed at the end of the case. Complications: Fluids: see anesthesia record Estimated Blood Loss: minimal Drains: 18F bartlett Disposition: awakened from anesthesia, extubated and taken to the recovery room in a stable condition, having suffered no apparent untoward event. Condition: doing well without problems HPI/Surgical Indications: This is a 43-year-old female who presented to the Urology Clinic with a history of chronic pelvic pain. Cystoscopy revealed a friable inflamed bladder and with poor visualization. As such, a discussion ensued and the patient was then counseled about the benefit of cystoscopy under general anesthesia with biopsies. The risks and benefits were discussed, and the patient agreed to proceed with the operation. Procedure: Consent was obtained in the preoperative holding area. She was then brought back to the operating room and placed on the table in supine position. General anesthesia was then induced and an endotracheal tube inserted. She was then placed in the dorsal lithotomy position and prepped and draped in the routine sterile fashion. A time-out was then held. A 22.5, 30-degree cystoscope was then gently passed through the patient's urethra and into the bladder under visual guidance. The bladder was then filled and emptied several times in attempt to clear the bleeding. The above findings were noted. We then swapped the 30-degree lens for the 70-degree lens and repeated the cystoscopy, noting additional bleeding from the bladder neck. The 30-degree lens was then reinserted with the Flaviaberger biopsy forceps, and two biopsies were taken from the anterior bladder wall. These were then fulgurated with the Bugbee cautery. The bladder was then emptied and an 18-Czech Bartlett catheter inserted. The patient was subsequently awoken and returned to the PACU in stable condition. Brief Op Note - Jann Leonard MD - 10/08/2013 1:54 PM EDT Brief Operative Note Patient Name: Libia Vaughan : [id number] MR#: [id number] Case Date: 10/08/2013 Surgeon: Surgeon(s) and Role: * Angelica Norris III, MD - Primary * Jann Leonard MD Preoperative diagnosis: CHRONIC CYSTITIS Postoperative diagnosis: CHRONIC CYSTITIS Procedure(s): CYSTOURETEROSCOPY, DIAGNOSTIC Anesthesia: General Findings: 1. Friable bladder consistent with chronic inflammatory process 2. Bleeding from anterior bladder wall and bladder neck - site biopsied and fulgurated 3. 18F bartlett catheter placed at the end of the case. Complications: Fluids: see anesthesia record Estimated Blood Loss: minimal Drains: 18F bartlett Disposition: awakened from anesthesia, extubated and taken to the recovery room in a stable condition, having suffered no apparent untoward event. Condition: doing well without problems (Please see the Surgical Encounter Summary for any Implant and Specimen details pertinent to this patient.) Miscellaneous - Provider, Scanning - 10/08/2013 12:44 PM EDT documented in this encounter Plan of Treatment Not on filedocumented as of this encounter Procedures Procedure Name Priority Date/Time Associated Comments Diagnosis SURGICAL PATHOLOGY Routine 10/08/2013 2:01 PM Res ults for this REPORT EDT procedure are i n the results section. SPECIMEN TO Routine 10/08/2013 1:33 PM Results f or this PATHOLOGY EDT procedure are i n the results section. HEMOGLOBIN A1C Routine 10/08/2013 12:50 PM Result s for this EDT procedure are i n the results section. BASIC METABOLIC Routine 10/08/2013 12:50 PM Resul ts for this PANEL (NON-FASTING) EDT procedur e are in the results section. CYSTOURETEROSCOPY, Yes 10/08/2013 12:45 PM CHRONIC CYSTITI S DIAGNOSTIC (WRVU EDT 5.75) POCT GLUCOSE Routine 10/08/2013 11:25 AM Results for this EDT procedure are i n the results section. documented in this encounter Results Surgical Pathology Report (10/08/2013 2:01 PM EDT) [facility] Method Time Signature Surgical CERNER Pathology ? [facility] Report ? Provider: ?? ANGELICA NORRIS III Pt. Name: ?? RENEE VAUGHAN ? Acc #: ?[id number] ?Pt. MRN: ?[id number] ? Col Date: ?? 4 ? /Sex: ?1970,(43 years),Female ? Rec Date: ?? 10/08/2013 ? LOC: ?SDP ? SURGICAL PATHOLOGY ? ---Pathologic Diagnosis--- ? A - Anterior bladder wall, biopsy: ? - Fragments of squamo us mucosa with ulceration and underlying granulation ? tissue. ? - Acute and chronic cystitis. ? CR-0 ? 10/09/13 ? JRP ? 10/09/13 Verified by: ? Rin DUGGAN, Regino Calles ? Pathologist ? (Electronic Si gnature) ? The attending pathologist whose signature appears o n this report has ? reviewed all diagnostic slides and has edited the ricardo ss and/or ? microscopic portion of the report in rendering the fi nal pathologic ? diagnosis. ? ---Gross Description--- ? A - Labeled/Fixative: Anterior bladder wall, fresh. ? Quantity/Size: Two, averaging 0.3 cm. ? Tissue Description: Soft, red tissues. ? Sections/Processing: (T1) ??sns ? ---Clinical Information--- ? Specimen Submitted: ? A - Anterior bladder wall ? Clinical History: ? Chronic cystitis ? Clinical Diagnosis: ? Same Specimen (Source) Anatomical Collection Method Collection Time Re ceived Time Location / / Volume Laterality 10/08/2013 2:01 PM EDT Angelica Norris III, MD PATHOLOGY/CYTOLOGY ORDERABLE S Performing Organization Address City/State/[place] [address] [facility] Specimen to Pathology (surgical or derm) (10/08/2013 1:33 PM EDT) Specimen Anatomical Collection Method Collection Time Receive d Time (Source) Location / / Volume Laterality AP Specimen 10/08/2013 1:33 PM 4 1:33 EDT PM EDT Narrative CHAZ BHAT - 10/08/2013 1:33 PM E DT Specimen requisition ordered. ??Separate Pathology report to follow Angelica Norris III, MD PATHOLOGY/CYTOLOGY ORDERABLE S Performing Organization Address City/State/ZIP Code [place] [address] [facility] (ABNORMAL) Hemoglobin A1c (10/08/2013 12:50 PM EDT) Analysis Performed At [facility] Time Signature Hemoglobin A1C 6.1 (H) <=5.6 % [facility] Comment: As of 2013 the methodology for Hem oglobin A1c testing has changed. This change is accompanied by a new interpret zeferino statement and flags. Please review the new interpretive statement and conta ct Dr. Michaud or Dr. Whiting with questions. Reference Range: 4.3 ? 5.6% 5.7 ? 6.4% - Increased Risk of Developing Diabetes Mellitus 6.5% - Consistent with diagnosis of Diab etes Mellitus In the absence of hyperglycemia (i.e. pl asma glucose > 200 mg/dL) or classic symptoms of hyperglycemia a repeat measu rement of HbA1c should be performed on a separate sample to confirm the diagnos is. Diagnosis and Classification of Diabetes Mellitus, Diabetes Care 2013; 36: Suppl. 1, P41-06 Est Avg Gluc 128 mg/dL [facility] Comment: eAG equivalents for HbA1c percentages: HbA1c(%) ?eAG(mg/dL) 6.0 ?126 6.5 ?140 7.0 ?154 7.5 ?169 8.0 ?183 8.5 ?197 9.0 ?212 9.5 ?226 10.0 ? 240 Limitations: The eAG calculation has not been validated on women, individuals below 18 years old and above 70 years old, and individuals with hemoglobinopathies. Additional resources are available on [facility] ADA website: ??http://professional.diabetes.org/gluc osecalculator.aspx Jeff GAFFNEY, Michelle J, Imelda R, et al. ??Tr anslating the A1C assay into estimated average glucose values. ??Diabetes Care 2008:31(8):4608-0089. Specimen Anatomical Collection Method Collection Time Receive d Time (Source) Location / / Volume Laterality Blood specimen 10/08/2013 12:50 4 (specimen) PM EDT 12:55 PM EDT Resulting Agency Comment Spec In Lab Angelica Norris III, MD CHEMISTRY ORDERABLES Performing Organization Address City/State/ZIP [place] [address] [facility] (ABNORMAL) Basic Metabolic Panel (non-fasting) (10/08/2013 12:50 PM EDT) athologist Signature Glucose Lvl 113 60 - 199 CERNER mg/dL [facility] Comment: Diabetes: >=200 mg/dL plus symp toms BUN 19 (H) 8 - 18 mg/dL [facility] Creatinine 1.63 (H) 0.70 - 1.20 mg/dL [facility] Comment: Please note that the pediatric reference intervals supplied above were not validated at [facility]. Results from pediatri c patients should be interpreted in conjunction to the patient's age, height and muscle mass. Sodium 137 135 - 145 mmol/L [facility] DASHA NIUM Potassium 4.8 3.5 - 5.0 mmol/L [facility] Comment: Please note: ??Patients with WBC >100,00 0 may have falsely elevated Potassium levels. ??For accurate Potassium quantif ication in these patients send serum separator tube (gold top) for subsequent determinations. ??Contact the Clinical Chemistry Laboratory if there are any qu estions. Chloride 104 98 - 107 mmol/L [facility] MILLENN IUM CO2 22 22 - 31 mmol/L [facility] MILLENNI UM Anion Gap 11 5 - 15 mmol/L [facility] MILLENNIU M Calcium 9.3 8.5 - 10.5 mg/dL [facility] DASHA NIUM Estimated GFR 34 (L) >=60 [facility] M Comment: This estimated GFR (eGFR) value was calc ulated using the MDRD equation which has been validated on patients between t he ages of 18 and 70. The MDRD should not be used to assess kidney function in patients < 18 years of age or in patients with extremes of body mass, or in patients with acute kidney failure. This value should be multiplied by 1.2 f or patients. For further information please copy and past e the following links into your internet browser. http://www.nkdep.nih.gov/lab-evaluation. shtml http://www.kidney.org/professionals/ Specimen Anatomical Collection Method Collection Time Receive d Time (Source) Location / / Volume Laterality Blood specimen 10/08/2013 12:50 4 (specimen) PM EDT 12:55 PM EDT Resulting Agency Comment Spec In Lab Angelica Norris III, MD CHEMISTRY ORDERABLES Performing Organization Address City/State/ZIP Code Phon e Number [address] [facility] POCT Glucose (10/08/2013 11:25 AM EDT) P athologist Signature POC Glucose 123 60 - 199 CERNER mg/dL [facility] Comment: Supplemental ranges: <110 mg/dL before meals <200 mg/dL all other times of the day Specimen Anatomical Collection Method Collection Time Receive d Time (Source) Location / / Volume Laterality Blood specimen 10/08/2013 11:25 4 (specimen) AM EDT 11:25 AM EDT Angelica Norris III, MD POINT OF CARE TEST ORDERABLE S Performing Organization Address City/[facility]/ZIP Code Phon e Number [address] [facility] documented in this encounter Visit Diagnoses Not on filedocumented in this encounter Administered Medications Inactive Administered Medications - up to 3 most recent administrations Medication Order MAR Action Action Date Dose Rate Site lactated ringers infusion New Bag 10/08/2013 11:45 AM 1,000 mLs 1 00 mL/hr 1,000 mL EDT 1,000 mL, at 100 mL/hr, Intravenous, CONTINUOUS, Starting on Michelle 10/08/13 at 1145, Until Michelle 10/08/13 at 1504, Day of Surgery (Day of Procedure) oxyCODONE (ROXICODONE) immediate release Given 10/08/2013 2:48 P M EDT 10 mg tablet 5-10 mg 5-10 mg, Oral, EVERY 4 HOURS PRN, Starting on Michelle 10/08/13 at 1445, Until Michelle 10/08/13 at 1803, Pain, Routine documented in this encounter Active and Recently Administered Medications Times are shown in EDT. Continuous Medication Order 10/06/2013 10/07/2013 10/08/2013 lactated ringers infusion 1,000 mL (CANCELED) 1145 (New Bag - Provider: Sujatha Connor RN) 1,000 mL, at 100 mL/hr, Intravenous, CON TINUOUS, Starting Michelle 10/08/13 at 1145, Until Michelle 10/08/13 at 1504, Day of Surgery (Day of Procedure) PRN Medication Order 10/06/2013 10/07/2013 10/08/2013 oxyCODONE (ROXICODONE) immediate release tablet 5-10 mg (CANCELE D) 1448 (Given - Provider: Radha León RN) 5-10 mg, Oral, EVERY 4 HOURS PRN, Starti ng Michelle 10/08/13 at 1445, Until Michelle 10/08/13 at 1803, Pain, Routine documented in this encounter Care Teams Bronzer Relationship Specialty Start Date End Date Earline Colbert MD PCP - General 09/08/13 [address] [place] [address] documented as of this encounter
--- OUTSIDE RECORDS SUMMARY | 2022-06-07 14:23 | XMS_ITS | Encounter Summary ---
:1970 Author Organization [facility] [place] [address] Care Team Providers Name Role Phone Earline Colbert MD Primary Care Provider Encounter Details Date Type Department Care Team Description 03/14/2020 Telephone Urology at [facility] Kailyn Bowden, [facility] [place] [address] Social History Tobacco Use Types Packs/Day Years Used Date Smoking Tobacco: Never Smokeless Tobacco: Never Alcohol Use Standard Drinks/Week Comments No 0 (1 standard drink = 0.6 oz pure alcoho l) Sex Assigned at Date Recorded Not on file documented as of this encounter Miscellaneous Notes Telephone Encounter - Kailyn Vieyra RN - 03/14/2020 3:14 PM EDT I called the patient to discuss her urine culture results. Pt to start Tetracycline 1g po bid x3 days. Prescription sent electronically to patient's pharmacy, and patient verbalized understanding. documented in this encounter Plan of Treatment Not on filedocumented as of this encounter Visit Diagnoses Not on filedocumented in this encounter Care Teams Technician Automated Equipment Relationship Specialty Start Date End Date Earline Colbert MD PCP - General 09/08/13 [address] [place], [place] [id number] documented as of this encounter
--- OUTSIDE RECORDS SUMMARY | 2022-06-07 14:23 | XMS_ITS | Encounter Summary ---
:1970 Author Organization [place] [address] Care Team Providers Name Role Phone Earline Colbert MD Primary Care Provider Reason for Visit Diagnostic Test (Routine) - Closed Specialty Diagnoses / Procedures Referred By Contact Refer red To Contact Radiology Diagnoses Other hydronephrosis Elevated serum creatinine Ev Davila [facility] Rad Nuclear Med Procedures NM Renal w Function Study NM Renal Scan Diuretic [employer] [facility] [place] [address] [place] [address] Referral ID Status Reason Start Date Expiration Date Visits V isits Requested Authorized [id number] Closed Specialty 02/02/2020 08/04/2021 1 1 Service Requested Encounter Details Date Type Department Care Team Description 02/08/2020 Hospital Encounter Nuclear Medicine at [facility] Davila ther hydronephrosis; Virginia Carreno APRN Elevated serum creatinine [facility] [address] [place]. [address] [place], [place] [phone] Social History Tobacco Use Types Packs/Day Years Used Date Smoking Tobacco: Never Smokeless Tobacco: Never Alcohol Use Standard Drinks/Week Comments No 0 (1 standard drink = 0.6 oz pure alcoho l) Sex Assigned at Date Recorded Not on file documented as of this encounter Medications at Time of Discharge Medication Sig Dispensed Refills Start Date End Date pentosan polysulfate Take 1 capsule by 90 capsule 3 01/26/20 20 (Elmiron) 100 mg mouth daily. Take 1 Capsule capsule by mouth 3 times daily (before meals). Trospium (SANCTURA XR) Take 1 capsule by 60 capsule 11 2013 60 mg Cp24 mouth daily. glipiZIDE (GLUCOTROL) Take 5 mg by mouth 0 5 mg tablet daily. amLODIPine (NORVASC) 5 Take 5 mg by mouth 0 mg tabletIndications: daily. Indications: hypertension Hypertension citalopram (CELEXA) 20 Take 20 mg by mouth 0 mg tablet daily. Blood Sugar Diagnostic by Other route daily 0 (ONE TOUCH ULTRA TEST) as needed. Use as test strip instructed Lancets Misc by [facility]Non-Drug; 0 Combo Route) route daily as needed. loratadine (CLARITIN) Take 1 tablet by 30 tablet 12 10/02/19 14 10 mg tablet mouth daily. fluconazole (Diflucan) 0 01/02/2020 150 mg Tablet gabapentin (Neurontin) Take 1 capsule tid x5 270 capsule 3 0 01/12/2020 05/25/2020 100 mg days then increase to CapsuleIndications: IC 2 capsules tid x5 (interstitial days, then increase cystitis) to 3 capsules three times daily hydrOXYzine (Atarax) Take 1 tablet by 30 tablet 12 0 04/08/2020 25 mg Tablet mouth nightly. Start with night time dose first as you may be fatigued on this fluconazole (DIFLUCAN) Take 100 mg by mouth 0 04/08/2020 100 mg tablet daily. ciprofloxacin (CIPRO) Take 500 mg by mouth 0 03/11/2020 500 mg tablet 3 times daily. gabapentin (NEURONTIN) Take 1 capsule by 21 capsule 3 201303/11/2020 300 mg capsule mouth 3 times daily. To use instead of 100 mg tablets when having more pain oxyCODONE (ROXICODONE) Take 1-2 tablets by 30 tablet 0 09/20 04/08/2020 5 mg immediate release mouth every 4 hours tablet as needed. documented as of this encounter Plan of Treatment Not on filedocumented as of this encounter Procedures Procedure Name Priority Date/Time Associated Diagnosis Comme nts NM RENAL WITH Routine 02/08/2020 12:58 PM Other hydron ephrosis Results for this FUNCTION STUDY EDT Elevated serum procedure a re in creatinine the results section. documented in this encounter Results NM Renal w Function Study (02/08/2020 12:58 PM EDT) Anatomical Region Laterality Modality Nuclear Medicine Specimen (Source) Anatomical Location Collection Method / Collectio n Time Received Time / Laterality Volume Impressions 02/08/2020 3:03 PM EDT 1. ??Non-functioning left kidney. 2. ??Normal right renal function. . Thank you for letting us participate in the care of this patient. For questions regarding this report, please contact e number below. ? Narrative 02/08/2020 3:03 PM EDT EXAMINATION: NM RENAL W FUNCTION STUDY CLINICAL HISTORY: Mag 3 renal scan pleas e. pt with history of IC and bladder symptoms, also nephrolithiasis. recent U S showing hydro. CT 01/27 showed hydro, but no obstructing stone-? obstruction TECHNIQUE: Technetium-99m MAG3 was admin istered intravenously in a dose of 10 mCi. Images of the kidneys were obtained in the posterior projection at 2 second intervals for 1 minute and then 1 minute intervals for 30 minutes. Furosemide was administered not administ ered. FINDINGS: Left Kidney: No visible perfusion or ext raction. Right Kidney: Normal perfusion, extracti on, excretion, and clearance prior to furosemide. Procedure Note Arnulfo Beltran MD - 02/08/2020Formatti ng of this note might be different from the original. EXAMINATION: NM RENAL W FUNCTION STUDY CLINICAL HISTORY: Mag 3 renal scan solitario fernandez pt with history of IC and bladder symptoms, also nephrolithiasis. recent U S showing hydro. CT 01/27 showed hydro, but no obstructing stone-? obstruction TECHNIQUE: Technetium-99m MAG3 was admin istered intravenously in a dose of 10 mCi. Images of the kidneys were obtained in the posterior projection at 2 second intervals for 1 minute and then 1 minute intervals for 30 minutes. Furosemide was administered not administ ered. FINDINGS: Left Kidney: No visible perfusion or ext raction. Right Kidney: Normal perfusion, extracti on, excretion, and clearance prior to furosemide. IMPRESSION 1. Non-functioning left kidney. 2. Normal right renal function. . Thank you for letting us participate in the care of this patient. For questions regarding this report, please contact e number below. Ev Ngo [employer] IMG NM ORDERABLES documented in this encounter Visit Diagnoses Diagnosis Other hydronephrosis Elevated serum creatinine Other nonspecific findings on examinatio n of blood documented in this encounter Administered Medications Inactive Administered Medications - up to 3 most recent administrations Medication Order MAR Action Action Date Dose Rate Site technetium (Tc-99m) Given 02/08/2020 12:10 PM EDT 10 mCi Right Arm emertiatide (MAG3) injection 0-15 mCi 0-15 mCi, Intravenous, ONCE PRN, 1 dose, Starting on Sat02/08/20 at 1233, Until Sat02/08/20 at 1210, Per Protocol, Radiology Contrast, Routine documented in this encounter Care Teams Night Time Babysitter Relationship Specialty Start Date End Date Earline Colbert MD PCP - General 09/08/13 [address] [place] [address] documented as of this encounter
--- OUTSIDE RECORDS SUMMARY | 2022-06-07 14:23 | XMS_ITS | Encounter Summary ---
:1970 Author Organization [facility] [place] [address] Care Team Providers Name Role Phone Earline Colbert MD Primary Care Provider Encounter Details Date Type Department Care Team Description 02/11/2020 Telephone Urology at [facility] vE Davila, [facility] [place] [address] [facility] [phone] UROLOGY DEPT. [place], [place] [address] (Wo rk) Social History Tobacco Use Types Packs/Day Years Used Date Smoking Tobacco: Never Smokeless Tobacco: Never Alcohol Use Standard Drinks/Week Comments No 0 (1 standard drink = 0.6 oz pure alcoho l) Sex Assigned at Date Recorded Not on file documented as of this encounter Miscellaneous Notes Telephone Encounter - Kathrin Cruz - 02/11/2020 11:27 AM EDT PHONE: [phone] Pt calls looking for results from NM scan completed Saturday. documented in this encounter Plan of Treatment Not on filedocumented as of this encounter Visit Diagnoses Not on filedocumented in this encounter Care Teams Interpersonal Communications Professor Relationship Specialty Start Date End Date Earline Colbert MD PCP - General 09/08/13 [address] [place] [address] documented as of this encounter
--- OUTSIDE RECORDS SUMMARY | 2022-06-07 14:23 | XMS_ITS | Encounter Summary ---
:1970 Author Organization [facility] [place] [address] Care Team Providers Name Role Phone Earline Colbert MD Primary Care Provider Encounter Details Date Type Department Care Team Description 04/28/2020 Telephone [place] [facility] Patricia Chamberlain MD [facility] [place] [address] [place] [address] [phone] (Wo rk) Social History Tobacco Use Types Packs/Day Years Used Date Smoking Tobacco: Never Smokeless Tobacco: Never Alcohol Use Standard Drinks/Week Comments No 0 (1 standard drink = 0.6 oz pure alcoho l) Sex Assigned at Date Recorded Not on file documented as of this encounter Miscellaneous Notes Telephone Encounter - Patricia Chamberlain MD - 04/28/2020 4:44 PM EDT Called Ms. Burgos to relay results of OSH urine culture with >100K ESBL E coli resistant to everything but Nitrofurantoin and Zosyn. She has a listed allergy to Macrobid but she confirms she has taken this before without major complication. Will remove from allergy list. She is OK with trial of macrobid and understands to stop the medication with any issues. Given findings recommend deferring her bladder biopsy tomorrow till urine appropriately treated. Additionally will have her start saline bladder flushes to reduce bladder debris three times per week. documented in this encounter Plan of Treatment Not on filedocumented as of this encounter Visit Diagnoses Not on filedocumented in this encounter Care Teams Beaming Inspector Relationship Specialty Start Date End Date Earline Colbert MD PCP - General 09/08/13 [address] [place] [address] documented as of this encounter
--- OUTSIDE RECORDS SUMMARY | 2022-06-07 14:23 | XMS_ITS | Encounter Summary ---
:1970 [place] [address] Care Team Providers Name Role Phone Earline Colbert MD Primary Care Provider Encounter Details Date Type Department Care Team Description 10/08/2013 Anesthesia Event Main Operating Room Grant Newberry MD [facility] [place] [address] Tariq Dyer MD [facility] [place] [address] [place] [address] Anesthesia Record Procedure Summary Procedure Name Responsible Anesthesia Start Anesthesia Stop Anesthesiologist Time Time CYSTOURETEROSCOPY, Cecil Newberry MD 10/08/13 1252 10/08/13 1401 DIAGNOSTIC (WRVU 5.75) (Ureter) Events Date Time Event Comment 10/08/2013 1252 AN Verify 1252 Start 1256 An Start Data 1307 An Induction 1311 An Intubation 1316 Anesthesia Ready 1322 Procedure Start 1353 Extubation/LMA Out 1353 an stop data 1401 Stop 10/13/2013 1626 Name Total Midazolam 2 mg fentaNYL 25 mcg IV Lidocaine 30 mg Propofol 200 mg Rocuronium 35 mg Dexamethasone 4 mg Neostigmine 5 mg Glycopyrrolate 0.8 mg ceFAZolin 2 g Esmolol 10 mg Agents Name O2 Air Sevoflurane (et) Blood No blood administrations on file. Lines, Drains, and Airways Type Details Placement Removal Urethral Catheter 10/08/13; indwelling 10/08/13 0000 by double lumen catheter; Stiven Gama, RN 100% silicone; 18; inserted (By Dr. Dany Leonard); 1; leg bag to dependent drainage Incision 10/08/13; urethral 10/08/13 0000 by 03/19/22 171 5 by meatus; 03/19/22 (LDA Stiven Gama, Truman Martínezrdre Shahab cleanup utility RA#[id number]); 1715 (LDA cleanup utility RA#[id number]) PIV 10/08/13; 1115; 10/08/13 1115 by 10/08/13 1507 b y 10/08/13; 1507 Sujatha Connor RN Chapman, J anice A, RN (RETIRED) Mask Ventilation: 10/08/13 1329 by 10/08/13 1353 by Non-Surgical Airway Adjunct (2); Oral Marco A Milligan Airway: 90 mm (4) MD Aileen documented in this encounter Social History Tobacco Use Types Packs/Day Years Used Date Smoking Tobacco: Never Smokeless Tobacco: Never Alcohol Use Standard Drinks/Week Comments No 0 (1 standard drink = 0.6 oz pure alcoho l) Sex Assigned at Date Recorded Not on file documented as of this encounter OR Notes Anesthesia Postprocedure Evaluation - Marco A Milligan MD - 10/08/2013 3:01 PM EDT Patient: Libia Zuñiga Aubrey Procedure(s) Performed: Procedure(s): CYSTOURETEROSCOPY, DIAGNOSTIC Actual Anesthetic: No value filed. Patient location: PACU Post-op pain: Adequate analgesia Post-op nausea: no nausea or vomiting Last Vitals: Filed Vitals: 10/08/13 1423 BP: Pulse: 79 Temp: Resp: 16 Post-op cardiovascular and respiratory status: is stable Level of consciousness: awake, alert and oriented Complications: no apparent complications and tolerated the procedure well. Small amount epistaxis when nasal airway placed around time of emergence. Bleeding resolved post op. Fluid Status: normal Anesthesia Preprocedure Evaluation - Cecil Newberry MD - 10/07/2013 10:09 PM EDT Pre-Anesthesia Evaluation for: Libia Burgos a 43 y.o. female. Procedure(s): CYSTOURETEROSCOPY, DIAGNOSTIC Patient Active Problem List Diagnosis ??? Simple ovarian cyst ??? Morbid obesity with BMI of 50.0-59.9, adult ??? Pelvic pain in female ??? Gross hematuria ??? Diabetes mellitus ??? Hypertension ??? Nephrolithiasis Past Medical History Diagnosis Date ??? Diabetes mellitus ??? Hypertension ??? Nephrolithiasis Past Surgical History Procedure Date ??? Tubal ligation ??? Tonsillectomy ??? Lithotripsy History Substance Use Topics ??? Smoking status: Never Smoker ??? Smokeless tobacco: Never Used ??? Alcohol Use: No History Drug Use No Allergies Allergen Reactions ??? Amitriptyline Anxiety Delusions and panic attacks ??? Compazine (Prochlorperazine) Anxiety Feeling like bugs crawling on me Medications: MAR and/or home medications have been reviewed. Physical Exam: There were no vitals filed for this visit. There is no height or weight on file to calculate BMI. Airway Assessment: Mallampati: II TM distance: >3 FB Neck ROM: full Cardiovascular Assessment: cardiovascular exam normal Pulmonary Assessment: pulmonary exam normal Dental Assessment: [facility] Assessment: Patient is wearing No contact(s). IV access: Peripheral line Anesthesia Plan: ASA 3 general, with a(n) intravenous induction 43 y.o. female with h/o morbid obesity BMI > 50, DM, HTN, chronic cystitis presents for diagnostic cystoureathroscopy. No reported h/o anesthetic complications. No heart or lung problems. Reports dyspnea with mild exertion. Denies GERD. Appropriately NPO. Plan for GA with ETT/LMA; standard ASA monitoring. Region - Other Informed Consent: Anesthetic plan and risks discussed with patient. Plan discussed with resident. [facility]. Assessment: documented in this encounter Plan of Treatment Not on filedocumented as of this encounter Visit Diagnoses Not on filedocumented in this encounter Administered Medications Inactive Administered Medications - up to 3 most recent administrations Medication Order MAR Action Action Date Dose Rate Site ceFAZolin (ANCEF) 1g in dextrose 5% Given 10/08/2013 1:15 PM EDT 2 g 50mL PRN, Starting on Michelle 10/08/13 at 1315, Until Michelle 10/08/13 at 1403, Administer over 30 Minutes, Anesthesia Intra-op dexamethasone (DECADRON) injection Given 10/08/2013 1:07 PM EDT 4 mg PRN, Starting on Michelle 10/08/13 at 1307, Until Michelle 10/08/13 at 1403, Anesthesia Intra-op, Routine esmolol (BREVIBLOC) injection Given 10/08/2013 1:28 PM EDT 10 mg PRN, Starting on Michelle 10/08/13 at 1328, Until Michelle 10/08/13 at 1403, Anesthesia Intra-op, Routine fentaNYL 50mcg/mL injection Given 10/08/2013 1:23 PM EDT 25 mcg PRN, Starting on Michelle 10/08/13 at 1323, Until Michelle 10/08/13 at 1403, Pain, Anesthesia Intra-op, Routine glycopyrrolate (ROBINUL) injection Given 10/08/2013 1:32 PM EDT 0.8 mg PRN, Starting on Michelle 10/08/13 at 1332, Until Michelle 10/08/13 at 1403, Anesthesia Intra-op, Routine lidocaine (PF) (XYLOCAINE) 100 mg/5 mL (2 %) Given 4 1:07 PM EDT 30 mg injection PRN, Starting on Michelle 10/08/13 at 1307, Until Michelle 10/08/13 at 1403, Anesthesia Intra-op, Routine midazolam (PF) (VERSED) 1 mg/mL injectio n Given 10/08/2013 12:53 PM EDT 2 mg PRN, Starting on Michelle 10/08/13 at 1253, Until Michelle 10/08/13 at 1403, Sleep, Anesthesia Intra-op, Routine neostigmine (PROSTIGMINE) injection Given 10/08/2013 1:32 PM EDT 5 mg PRN, Starting on Michelle 10/08/13 at 1332, Until Michelle 10/08/13 at 1403, Anesthesia Intra-op, Routine propofol (DIPRIVAN) 10 mg/mL bolus injection Given 1:07 PM EDT 200 mg (Anesthesia) PRN, Starting on Michelle 10/08/13 at 1307, Until Michelle 10/08/13 at 1403, Anesthesia Intra-op rocuronium (ZEMURON) injection Given 10/08/2013 1:07 PM EDT 35 mg PRN, Starting on Michelle 10/08/13 at 1307, Until Michelle 10/08/13 at 1403, Anesthesia Intra-op, Routine documented in this encounter Care Teams Globe Mounter Relationship Specialty Start Date End Date Earline Colbert MD PCP - General 09/08/13 [address] [place] [address] documented as of this encounter
--- OUTSIDE RECORDS SUMMARY | 2022-06-07 14:23 | XMS_ITS | Encounter Summary ---
:1970 Author Organization [place] [address] Care Team Providers Name Role Phone Earline Colbert MD Primary Care Provider Encounter Details Date Type Department Care Team Description 01/28/2020 Telephone [place] [facility] [place]ailyn Bowden, [facility] [place] [address] Social History Tobacco Use Types Packs/Day Years Used Date Smoking Tobacco: Never Smokeless Tobacco: Never Alcohol Use Standard Drinks/Week Comments No 0 (1 standard drink = 0.6 oz pure alcoho l) Sex Assigned at Date Recorded Not on file documented as of this encounter Miscellaneous Notes Telephone Encounter - Kailyn Vieyra RN - 01/28/2020 8:39 AM EDT I called the pt to discuss her urine culture results. Per Ev Ngo, pt to start Keflex 500 mg tid x10 days. Prescription sent electronically to the patient's pharmacy. The pt will have a repeat creatinine checked in 5 days at her PCP office. Order faxed. I confirmed that her CT is scheduled for this afternoon. She wanted to be sure that it would be donegiven her last creatinine level. I let her know that Ev definitely wants it done. I told her that the imaging department should page Ev if they have concerns performing the test. documented in this encounter Plan of Treatment Not on filedocumented as of this encounter Visit Diagnoses Diagnosis Hydronephrosis, left Hydronephrosis documented in this encounter Care Teams Import And Export Clerk Relationship Specialty Start Date End Date Earline Colbert MD PCP - General 09/08/13 [address] [place] [address] documented as of this encounter
--- OUTSIDE RECORDS SUMMARY | 2022-06-07 14:23 | XMS_ITS | Encounter Summary ---
:1970 Author Organization [facility] [place] [address] Care Team Providers Name Role Phone Earline Colbert MD Primary Care Provider Encounter Details Date Type Department Care Team Description 05/25/2020 Telephone [place] [facility] [place] Davila [facility] [place] [address] [facility] [phone] UROLOGY DEPT. [place], [place] [address] (Wo rk) Social History Tobacco Use Types Packs/Day Years Used Date Smoking Tobacco: Never Smokeless Tobacco: Never Alcohol Use Standard Drinks/Week Comments No 0 (1 standard drink = 0.6 oz pure alcoho l) Sex Assigned at Date Recorded Not on file documented as of this encounter Miscellaneous Notes Telephone Encounter - Carolin Lau RN - 05/25/2020 2:55 PM EST Orders faxed for Gabapentin 300mg TID Telephone Encounter - Kathrin Cruz - 05/25/2020 2:06 PM EST PHONE: [phone] Pt calls wondering if her prescription for Gabapentin 300mg [facility] receive [facility] prescription. documented in this encounter Plan of Treatment Not on filedocumented as of this encounter Visit Diagnoses Diagnosis IC (interstitial cystitis) Chronic interstitial cystitis documented in this encounter Care Teams Machine Tracer Relationship Specialty Start Date End Date Earline Colbert MD PCP - General 09/08/13 [address] [place] [address] documented as of this encounter
--- OUTSIDE RECORDS SUMMARY | 2022-06-07 14:23 | XMS_ITS | Encounter Summary ---
:1970 Author Organization [facility] [place] [address] Care Team Providers Name Role Phone Earline Colbert MD Primary Care Provider Encounter Details Date Type Department Care Team Description 02/02/2020 TH Visit Urology at [facility] Josemanuel Davila hydronephrosis; (TeleHealth) [facility] [place] Carreno History of nephrolithiasis; [facility] IC (interstitial cystitis); [facility] Acute UTI (urinary tract infection); [id number] [address] Elevated serum creatinine [phone] [place], [place] [address] Social History Tobacco Use Types Packs/Day Years Used Date Smoking Tobacco: Never Smokeless Tobacco: Never Alcohol Use Standard Drinks/Week Comments No 0 (1 standard drink = 0.6 oz pure alcoho l) Sex Assigned at Date Recorded Not on file documented as of this encounter Progress Notes Ev Davila APRN - 02/02/2020 11:20 AM EDT [facility] SECTION OF UROLOGY OUT PATIENT NEW PATIENT VISIT Ms. Libia Burgos is a 49 year old woman who presents for diagnosis of IC treatments, but also recentimaging finding review. Libia Burgos consented to conduct this clinical encounter by telephone. The patient acknowledges that the insurance may be billed for the care provided, similar to an in person appointment. The patient is currently at home in [place] Prior to beginning the visit, I confirmed the patients name and date of . I obtained the patient's consent to receiving health care services at [facility] through telemedicine. We discussed the opportunities and limitations of delivering health care services through telemedicine. I told the patient that the telemedicine service is being delivered over a secure connection, except in the event of emergency conditions when such requirements may be waived. Patient informed that telemedicine informed consent form is available for patient's review in [facility] patient portal, [facility] ?? Pelvic pain history: 01/2013: pelvic pain and culture showing e.coli tx with cipro. Follow up cultures were negative but she continued to have gross hematuria. 08/13/2013: saw Dr. Brandt, had a cysto which showed bladder inflammation. CTU showed bladder wall thickening and bilateral nonobstructing renal stones 09/2013: Dr. Norris attempted to scope her at her first visit to [facility], but she could not tolerate it,so she went to the OR on 10/08/2013. Cysto showed severe acute and chronic inflammation and ulcerative changes. She was referred to me for tx discussion Bladder biopsy pathology: ; SURGICAL PATHOLOGY A - Anterior bladder wall, biopsy: Fragments of squamous mucosa with ulceration and underlying granulation tissue. Acute and chronic cystitis. [facility] indicate: 11/2019: e.coli very resistant to [...] gram whitney 01/20/13: 10-50K e.coli lepe sensitive She states she had done great since 2013 until 07/2019. She has had 3-4 UTI episodes since 07/2019. She has used bactrim, keflex and macrobid x 2 courses. She has been off the macrobid since Saturday, but had terrible GI distress on this, even with yogurt Given her UTIs and history of nephrolithiasis, we did a screening renal US on 01/26/2020 which showed:Impression: No prior renal studies available for comparison. 1. There is marked left pelvicaliectasis with thin rim of echogenic renal parenchyma suggestive of long standing obstruction. There is associated dilatation of the proximal left ureter. 2. The right kidney contains nonobstructing renal calculi, largest within a simple cyst measuring 9.4 mm in greatest dimension. 3. Distended bladder is normal in contour. Her cre was 1.57 with GFR of 38. I have ccd this to her pcp. cre in 09/2013 was 1.63 and GFR of 34. CTU for her gross hematuria in 08/04 showed bladder wall thickening and bilateral nonobstructing renal stones. No other concerning findings. Given her US findings, she was booked for a CT on 01/28/2020. CT stone protocol indicated: IMPRESSION Bilateral renal nonobstructing calculi. No significant RIGHT hydronephrosis. RIGHT renal stone appears within a low- attenuation cyst. Poorly visualized due to lack of contrast and patient body habitus. LEFT kidney without significant renal parenchyma visualized. Multiple low- attenuation renal cortical cysts and mild central pelviectasis. Given inability to administer contrast, MRI may be helpful. I cc'd her results to my Attending Dr. Patricia Chamberlain for review and to see if she should have a Mag 3renal scan. She agreed. Her recommendation was : Mag 3 renal scan and that she would see pt if that showed obstructing without a stone Again, she started to have an increase in bladder symptoms in 07/2019 that may have been IC related, so we restarted medications. She is on neurontin 300 tid , elmiron once daily, Sanctrua xr 60 mg, also atarax 25 mg She is not having bladder pain. She is on the elmiron 100 mg po once daily. She is on neurontin 300 mg po three times a day. She is also on trospium 20 mg po daily. She has minimal urgency and frequency, she can manage her bladder symptoms. She is not having to triple void anymore. She is not taking hydrocodone for her bladder pain, or motrin. Bowels daily 16 oz of water every 2 hours. Not sexually active ?? DM is doing well, 7.2 A1c. ? She is going to see Dr. Smith about her stones. She has a history of ureteroscopy/laser litho for stone in . No issues since. ?? Patient Active Problem List Diagnosis Code ??? Diabetes mellitus E11.9 ??? Hypertension I10 ??? Bilateral nephrolithiasis N20.0 ??? Simple ovarian cyst N83.209 ??? Morbid obesity with BMI of 50.0-59.9, adult E66.01, Z68.43 ??? Pelvic pain in female R10.2 ??? Gross hematuria R31.0 ??? Lower urinary tract symptoms (LUTS) R39.9 ??? History of UTI Z87.440 ??? IC (interstitial cystitis) N30.10 ??? Elevated serum creatinine R79.89 depression Surgical History URS-Left Shoulder surgery Tubal ligation ?? Social History 3 kids, all vaginal. No smoking or ETOH Family hx: negative PE:?? Alert and oriented : deferred (11/02: normal external genitalia. Urethral discomfort. Could not get to her trigone. Nopelvic floor discomfort. Well supported uterus) Musculoskeletal: grossly normal Neurologic: grossly normal ?? UA: not obtained PVR: deferred 11/02: 50 cc with scanner ?? Imaging: CT from j: 08/04: There is a left lower pole stone of 1.2 cm Newer imaging per above ?? Assessment: IC-bladder symptoms manageable History of nephrolithiasis. Recent imaging for stones showing hydro but without obstructing stone, cre is elevated and decreasedrenal parenchyma. Mag 3 recommended Very resistant e.coli bacteriuria ?? Recommendations: MAG 3 renal scan. I will contact her with the results hydration, timed and double void, moderate her bowels. I reviewed her bladder biopsy history and IC diagnosis. We discussed elmiron side effects. She is not ready to. She will stay on neurontin and trospium at this time, we will defer instillations and atarax She has the IC list We will defer PT at this time Will consider referral to ID as well, given her resistance pattern. All the patient's questions were answered to her satisfaction. ?? Ev Ngo APRN documented in this encounter Plan of Treatment Not on filedocumented as of this encounter Visit Diagnoses Diagnosis Other hydronephrosis History of nephrolithiasis Personal history of urinary calculi IC (interstitial cystitis) Chronic interstitial cystitis Acute UTI (urinary tract infection) Urinary tract infection, site not specif ied Elevated serum creatinine Other nonspecific findings on examinatio n of blood documented in this encounter Care Teams Ged Tutor Relationship Specialty Start Date End Date Earline Colbert MD PCP - General 09/08/13 [address] [place] [address] documented as of this encounter
--- OUTSIDE RECORDS SUMMARY | 2022-06-07 14:23 | XMS_ITS | Encounter Summary ---
:1970 [place] [address] Care Team Providers Name Role Phone Earline Colbert MD Primary Care Provider Reason for Visit Auth/Cert Specialty Diagnoses / Procedures Referred By Contact Refer red To Contact Diagnoses bladder cancer Procedures PRO CYSTOURETHROSCOPY, FULGUR <.5CM LESN PRO CYSTOURETHROSCOPY, FULGUR .5-2CM LESN PRO CYSTOURETHROSCOPY, FULGUR 2-5CM LESN PRO CYSTOURETHROSCOPY, FULGUR >5CM LESN PRO CYSTOURETHROSCOPY, URETER CATHETER CYSTO, FULGURATION\BLADDER L ESION\W\WO BX\LESS THAN 0.5CM (WRVU 4.05) CYSTO, FULGURATION OF BLADDER LESION, W OR W/O BX, 0.5 TO 2.0CM (WRVU 4.62) CYSTO, FULGURATIONOF BLADDER LESION, W OR W/O BX, 2.0 TO 5.0 CM (WRVU 5.44) CYSTO, RESECTION BLADDER NATALIYA OR, GREATER THAN 5.0CM (WRVU 7.5) CYSTO, RETROGRADE, URETEROPYELOGRAPHY (WRVU 2.37) Referral ID Status Reason Start Date Expiration Date Visits Requ ested Visits Authorized [id number] 1 1 Encounter Details Date Type Department Care Team Description 05/03/2020 Surgery Main Operating Room Ele Darby, CYSTO, FULGURATION OF Virginia Chan MD BLADDER LESION, W [facility] W/O BX, 0.5 TO 2.0CM [facility] (WRVU 4.62) [facility] [place] [address] [place] [address] [phone] (Wo rk) Social History Tobacco Use Types Packs/Day Years Used Date Smoking Tobacco: Never Smokeless Tobacco: Never Alcohol Use Standard Drinks/Week Comments No 0 (1 standard drink = 0.6 oz pure alcoho l) Sex Assigned at Date Recorded Not on file documented as of this encounter Last Filed Vital Signs Vital Sign Reading Time Taken Comments Blood Pressure 101/47 05/03/2020 10:45 AM EDT Pulse 86 05/03/2020 8:33 AM EDT Temperature 35.9 ??C (96.6 ??F) 05/03/2020 10:21 AM EDT Respiratory Rate 16 05/03/2020 10:45 AM EDT Oxygen Saturation 96% 05/03/2020 10:45 AM EDT Inhaled Oxygen Concentration - - Weight - - Height - - Body Mass Index - - documented in this encounter Discharge Instructions Discharge InstructionsThDeisy mayo RN - 05/03/2020 10:35 AM EDT POST ANESTHESIA INSTRUCTIONS Go home, rest, use [...] which usually goes away in 12-24 hours. documented in this encounter Medications at Time of Discharge Medication Sig Dispensed Refills Start Date End Date sterile water (Aqua Irrigate with 250 mLs 4000 mL 11 04/29 Care Sterile Water) as directed three SolutionIndications: times a week. Bladder irritation atorvastatin (Lipitor) TAKE 1 TABLET BY 0 03/10/ 020 40 mg Tablet MOUTH AT BEDTIME metFORMIN (Glucophage) Take 500 mg by mouth 0 500 mg Tablet daily. aspirin 81 mg Tablet, Take 81 mg by mouth 0 Chewable daily. furosemide (Lasix) 20 Take 20 mg by mouth 0 mg Tablet as needed. BACLOFEN ORAL Take 5 mg by mouth 0 daily. losartan (Cozaar) 50 Take 50 mg by mouth 0 mg Tablet daily. liraglutide (VICTOZA) Inject 1.2 mg 0 0.6 mg/0.1 mL (18 mg/3 subcutaneously daily. mL) Pen Injector insulin degludec Inject 12 Units 0 (TRESIBA FLEXTOUCH subcutaneously U-100 SUBQ) nightly. Blood-Glucose Meter 1 each by 0 [facility].(Non-Drug; Combo Route) route 4 times daily. pentosan polysulfate Take 1 capsule by 90 [...] needed. Use as test strip instructed Lancets [facility] by [facility].(Non-Drug; 0 Combo Route) route daily as needed. loratadine (CLARITIN) Take 1 tablet by 30 tablet 12 10/02/19 14 10 mg tablet mouth daily. nitrofurantoin Take 1 capsule by 14 capsule 0 04/28/2020 (Macrobid) 100 mg mouth 2 times daily. Capsule gabapentin (Neurontin) Take 1 capsule tid x5 270 capsule 3 0 01/12/2020 05/25/2020 100 mg days then increase to CapsuleIndications: IC 2 capsules tid x5 (interstitial days, then increase cystitis) to 3 capsules three times daily documented as of this encounter Progress Notes Deisy Smith RN - 05/03/2020 12:50 PM EDT Pt up and voided. Blood tinged urine noted. Pt states that she feels that she emptied her bladder. VSS. Discharge info reviewed with pt and daughter. documented in this encounter H&P Notes Ele Darby MD - 05/01/2020 2:44 PM EDT Patient Name: Libia Burgos Patient Age: 50 y.o. Birthdate: 1970 Admit date: (Not on file) Attending Physician: Ele Darby MD Libia Burgos is a 50 y.o. female with a history of Victoria, IC, non-functional left kidney, recurrentnephrolithiasis. Urinary urgency/frequency with UUI managed on trospium. RIGHT midpole nonobstructing 9mm renal calculus on CT from January 2020. LEFT pelviectasis centrally. Dense posterior midpole cortical 5mm stone and an additional lower polenonobstructing peropheral cortical 7mm stone. MAG3 showed non-functioning left kidney with normal right renal function (02/08/2020). Had cysto in March 2020 showing bladder ulceration, possible contributor to urinary symptoms. 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 Patient presents to pre-op holding for scheduled cysto with biopsy possible resection. Feels well, no recent nausea, vomiting, chest pain or shortness of breath. Has taken a course of macrobid, otherwise no change to medical history since last visit on 04/28/[address] Chamberlain. Shechens remained on baby ASA. Past history: Patient Active Problem List Diagnosis Code ??? [...] cystitis) N30.10 ??? Elevated serum creatinine R79.89 ??? Other hydronephrosis N13.39 ??? History of nephrolithiasis Z87.442 ??? Acute UTI (urinary tract infection) N39.0 SH: Social History Socioeconomic History ??? Marital status: Spouse name: Not on file ??? Number of children: Not on file ??? Years of education: Not on file ??? Highest education level: Not on file Occupational History ??? Not on file Social Needs ??? Financial resource strain: Not on file ??? Food insecurity Worry: Not on file Inability: Not on file ??? Transportation needs Medical: Not on file Non-medical: Not on file Tobacco Use ??? Smoking status: Never Smoker ??? Smokeless tobacco: Never Used Substance and Sexual Activity ??? Alcohol use: No ??? Drug use: No ??? Sexual activity: Not on file Lifestyle ??? Physical activity Days per week: Not on file Minutes per session: Not on file ??? Stress: Not on file Relationships ??? Social connections Talks on phone: Not on file Gets together: Not on file Attends moravian service: Not on file Active member of club or organization: Not on file Attends meetings of clubs or organizations: Not on file Relationship status: Not on file ??? Intimate partner violence Fear of current or ex partner: Not on file Emotionally abused: Not on file Physically abused: Not on file Forced sexual activity: Not on file Other Topics Concern ??? 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 Allergies: Allergies Allergen Reactions ??? Amitriptyline Anxiety Delusions and panic attacks ??? Compazine [Prochlorperazine] Anxiety Feeling like bugs crawling on me ??? Petroleum Distillates Other (See Comments) Petroleum coated anything Swelling, rash skin and severe pain Meds: No current facility-administered medications on file prior to encounter. Current Outpatient Medications on File Prior to Encounter Medication Sig Dispense Refill ??? atorvastatin (Lipitor) 40 mg Tablet TAKE 1 TABLET BY MOUTH AT BEDTIME ??? metFORMIN (Glucophage) 500 mg Tablet Take 500 mg by mouth daily. ??? aspirin 81 mg Tablet, Chewable Take 81 mg by mouth daily. ??? BACLOFEN ORAL Take 5 mg by mouth daily. ??? losartan (Cozaar) 50 mg Tablet Take 50 mg by mouth daily. ??? liraglutide (VICTOZA) 0.6 mg/0.1 mL (18 mg/3 mL) Pen Injector Inject 1.2 mg subcutaneously daily. ??? insulin degludec (TRESIBA FLEXTOUCH U-100 SUBQ) Inject 12 Units subcutaneously nightly. ??? pentosan polysulfate (Elmiron) 100 mg Capsule [...] capsulesthree times daily) 270 capsule 3 ??? Trospium (SANCTURA XR) 60 mg Cp24 Take 1 capsule by mouth daily. 60 capsule 11 ??? glipiZIDE (GLUCOTROL) 5 mg tablet Take 5 mg by mouth daily. ??? amLODIPine (NORVASC) 5 mg tablet Take 5 mg by mouth daily. Indications: Hypertension ??? citalopram (CELEXA) 20 mg tablet Take 20 mg by mouth daily. ??? loratadine (CLARITIN) 10 mg tablet Take 1 tablet by mouth daily. 30 tablet 12 ??? furosemide (Lasix) 20 mg Tablet Take 20 mg by mouth as needed. ??? Blood-Glucose Meter Misc 1 each by Mis.(Non-Drug; Combo Route) route 4 times daily. ??? Blood Sugar Diagnostic (ONE TOUCH ULTRA TEST) test strip by Other route daily as needed. Use as instructed ??? Lancets Misc by Misc.(Non-Drug; Combo Route) route daily as needed. Review of systems: A 14 point review of systems was obtained and was negative except for recurrent UTIs. PHYSICAL EXAM: BP 136/83 (BP Location (NBP): Right arm) Pulse 86 Temp 37.1 ??C (98.8 ??F) (Temporal) Resp 18 LMP 04/19/2020 (Approximate) SpO2 98% General: Patient is a well-appearing female in no acute distress. Head: normocephalic, atraumatic. ENT: moist mucous membranes, supple neck, midline trachea Heart: regular heart rate Lungs: respirations unlabored, no audible wheezing. Abdomen: soft, obese Extremities: warm, no lower extremity edema Neuro: awake, alert, oriented to conversation Labs: Lab Results Component Value Date CREATININE 1.57 (H) 01/26/2020 A: Stable for cysto, bladder biopsy, possible TURBT P: - informed consent obtained - Zosyn as periop prophy - has completed 7 days of nitrofurantoin outpatient - full code ELE DARBY MD 05/03/2020 documented in this encounter Miscellaneous Notes Op Note - Ele Darby MD - 05/03/2020 9:17 AM EDT [facility] [place] Patient Name: Libia Burgos : [id number] MR#: [id number] Case Date: 05/03/2020 Surgeon: Surgeon(s) and Role: * Ele Darby MD - Primary * Bryon Dumont MD - Resident Preoperative diagnosis: bladder cancer Postoperative diagnosis: bladder cancer Procedure(s) (LRB): CYSTO, FULGURATION OF BLADDER LESION, W OR W/O BX, 0.5 TO 2.0CM (WRVU 4.62) (N/A) Findings: areas of erythema and fibrinous tissue at anterior bladder (2cm) and posterior trigone biopsied and fulgurated, remainder of bladder unremarkable, bilateral orthotopic ureteral orifices Anesthesia: General Estimated Blood Loss: 1cc Specimens removed during surgery: Bladder biopsy Drains: None Surgical Closure: N/A Disposition: awakened from anesthesia, extubated and taken to the recovery room in a stable condition, having suffered no apparent untoward event. Condition: doing well without problems (Please see the Surgical Encounter Summary for any Implant and Specimen details pertinent to this patient.) HPI/Surgical Indications: Libia Burgos is a 50 y.o. female with a history of Victoria, IC, non-functional left kidney, recurrentnephrolithiasis. She has urinary urgency/frequency with UUI managed on trospium. Had cysto in March 2020 showing bladder ulceration, possible contributor to urinary symptoms. Patient presents to pre-op holding for scheduled cysto with biopsy possible resection. Procedure Description: The patient was identified in the pre-operative holding area. Consent was verified. The patient was taken to the operating room and placed supine on the operating table. General anesthesia was induced.The patient was then moved to the lithotomy position and prepped and draped in the usual sterile fashion. A timeout was performed involving all members of the OR team confirming the patient's identity and planned procedure. Preoperative antibiotics (Zosyn) were administered. A 22 Fr rigid cystoscope was inserted into the bladder. Visual inspection of the bladder with 30 and70 degree lenses revealed two erythematous, shaggy ulcerative appearing lesion at the anterior bladder and an edematous, red appearing patch at the posterior trigone. The largest of the two was at the a nterior bladder, approximately 2cm in largest diameter. There was significant debris in the bladder which was washed out. Otherwise grossly normal bladder without other focal mucosal, foreign bodies, or stones. The ureteral orifices were noted to be in orthotopic position. Ureteral jets were noted bilaterally. The suspicious areas were biopsied and fulgurated using monopolar and glycine irrigant. Inspection of the biopsy sites revealed no active hemorrhage. The cystoscope was removed. Exam under anesthesia revealed a mobile bladder without additional masses. Belladonna suppository placed. The patient tolerated the procedure well and was awakened from anesthesia with no adverse events. The patient was taken to the recovery area in stable condition. Dr. Darby, the attending surgeon, was present for the entire procedure. Plan: - call with path to determine next steps in care - if pathology shows cancer, will need re-resection Infection Bundle used? N/A Attending: I, Dr. Darby, was present and scrubbed for the entire procedure. ELE DARBY MD 05/03/2020 documented in this encounter Plan of Treatment Not on filedocumented as of this encounter Procedures Procedure Name Priority Date/Time Associated Comments Diagnosis POCT GLUCOSE Routine 05/03/2020 10:30 Results for this AM EDT procedure are i n the results section. SPECIMEN TO PATHOLOGY Routine 05/03/2020 9:50 AM Results for this EDT procedure are i n the results section. SPECIMEN TO PATHOLOGY Routine 05/03/2020 9:46 AM Results for this EDT procedure are i n the results section. SURGICAL PATHOLOGY Routine 05/03/2020 9:45 AM Res ults for this REPORT EDT procedure are i n the results section. CYSTO, FULGURATION OF Yes 05/03/2020 9:18 AM bladder cance r BLADDER LESION, W OR EDT W/O BX, 0.5 TO 2.0CM (WRVU 4.62) POCT GLUCOSE Routine 05/03/2020 8:31 AM Results f or this EDT procedure are i n the results section. HC URINE CULTURE Routine 05/03/2020 8:26 AM Lower urinary trac t Results for this EDT symptoms (LUTS) procedure ar e in the results section. documented in this encounter Results POCT Glucose (05/03/2020 10:30 AM EDT) P athologist Signature POC Glucose 190 65 - 199 [facility] mg/dL [facility] Comment: Supplemental ranges: <140 mg/dL before meals <180 mg/dL all other times of the day Specimen Anatomical Collection Method Collection Time Receive d Time (Source) Location / / Volume Laterality Blood specimen 05/03/2020 10:30 0 (specimen) AM EDT 10:30 AM EDT Ele Darby MD POINT OF CARE TEST ORDERABLE S Performing Organization Address City/State/[place] [address] Specimen to Pathology (05/03/2020 9:50 AM EDT) Specimen Anatomical Collection Method Collection Time Receive d Time (Source) Location / / Volume Laterality AP Specimen 05/03/2020 9:50 AM 0 9:50 EDT AM EDT Narrative [facility] - 05/03/2020 9:50 AM EDT Specimen requisition ordered. ??Separate Pathology report to follow Ele Darby MD PATHOLOGY/CYTOLOGY ORDERABLE S Performing Organization Address [facility]/[place] [address] Specimen to Pathology (05/03/2020 9:46 AM EDT) Specimen Anatomical Collection Method Collection Time Receive d Time (Source) Location / / Volume Laterality AP Specimen 05/03/2020 9:46 AM 0 9:46 EDT AM EDT Narrative [facility] - 05/03/2020 9:46 AM EDT Specimen requisition ordered. ??Separate Pathology report to follow Ele Darby MD PATHOLOGY/CYTOLOGY ORDERABLE S Performing Organization Address City/[facility] [place] [address] Surgical Pathology Report (05/03/2020 9:45 AM EDT) Component Value Ref Test Analysis Performed At [facility] Range Method Time Signature Surgical [id number] ? Location: [facility]; [facility]; A [facility] Report The signing pathologist has (i) examined the relevant preparation(s) for the [facility] specimen(s) and (ii) rendered or confirmed the diagnosis(es) . HOSPITAL LABORATORY . ?Surgic al Pathology DIAGNOSIS A - Left anterior wall, biopsy: - Squamous metaplasia with ?? acute inflammation and ?focal associated fragment of granulation tissue. - ??There is no evidence of malignancy or dysplasia. B - Posterior Wall, Bladder, biopsy (1) - Squamous metaplasia. - Follicular chronic cystitis. - ??There is no evidence of malignancy or dysplasia. Electronically signed by: ??MD Rin, Regino MarliIleana Verified: ??05/10/2020 ?Pathologist Performed at: ??-[facility] Dept. 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 Quantity/Size: Two, 0.5-0.8 cm. Tissue Description: Soft, pink-white tissues. Sections/Processing: Submitted en toto ??in 1 cassette labeled A1. B - Labeled/Fixative: Posterior wall bladder, formalin. Quantity/Size: Two, averaging 0.5 cm. Tissue Description: Soft, pink-white tissues. Sections/Processing: Submitted en toto ??in 1 cassette labeled B1. ??annie Specimen (Source) Anatomical Collection Method Collection Time Re ceived Time Location / / Volume Laterality 05/03/2020 9:45 AM EDT Ele Darby MD PATHOLOGY/CYTOLOGY ORDERABLE S Performing Organization Address City/State/ZIP Code Phon e Number [address] (ABNORMAL) POCT Glucose (05/03/2020 8:31 AM EDT) P athologist Signature POC Glucose 201 (H) 65 - 199 [facility] mg/dL [facility] Comment: Supplemental ranges: <140 mg/dL before meals <180 mg/dL all other times of the day Specimen Anatomical Collection Method Collection Time Receive d Time (Source) Location / / Volume Laterality Blood specimen 05/03/2020 8:31 AM 020 8:31 (specimen) EDT AM EDT Ele Darby MD POINT OF CARE TEST ORDERABLE S Performing Organization Address City/[facility]/ZIP Code Phon e Number [address] (ABNORMAL) Urine culture Clean Catch Urine (05/03/2020 8:26 AM EDT) Patholo gist Method Time Signature Urine Culture Greater than 100,000 cfu/ml Pseudomonas aeruginosa [place] 10,000-49,000 cfu/ml Escherichia coli [place] () [facility] Organism Pseudomonas [place] aeruginosa (A) [facility] Organism Escherichia [place] coli (A) [facility] Specimen (Source) Anatomical Collection Method Collection Time Re ceived Time Location / / Volume Laterality Urine specimen 05/03/2020 8:26 05/03/2020 9:33 obtained by clean AM EDT AM EDT catch procedure (specimen) Resulting Agency Comment Spec In Lab Organism Antibiotic Method Susceptibility Pseudomonas aeruginosa Amikacin MICROSCAN METHOD Sensitiv e Pseudomonas aeruginosa Aztreonam MICROSCAN METHOD Sensitiv e Pseudomonas aeruginosa Cefepime MICROSCAN METHOD <=2: Sen sitive Pseudomonas aeruginosa Ceftazidime MICROSCAN METHOD <=2: Sen sitive Pseudomonas aeruginosa Ciprofloxacin MICROSCAN METHOD Sensitiv e Pseudomonas aeruginosa Gentamicin MICROSCAN METHOD Intermed iate Pseudomonas aeruginosa Levofloxacin MICROSCAN METHOD Sensitiv e Comment: Levofloxacin and Ciprofloxac in may not adequately treat infections in critically ill patients even when isolates test susceptible in the laboratory. Contact Infectious Disease b efore using in critically ill patients. Pseudomonas aeruginosa Meropenem MICROSCAN METHOD <=1: Sen sitive Pseudomonas aeruginosa Piperacillin/Tazobactam MICROSCAN METHOD <=8: Sensitive Pseudomonas aeruginosa Tobramycin MICROSCAN METHOD Sensitiv e Escherichia coli Amikacin VITEK 2 METHOD Sensitive Escherichia coli Ampicillin + Sulbactam VITEK 2 METHOD Resistan t Escherichia coli Aztreonam VITEK 2 METHOD Sensitive Escherichia coli Cefazolin VITEK 2 METHOD Resistant Escherichia coli Ceftazidime VITEK 2 METHOD 2: Sensitive Escherichia coli Ceftriaxone VITEK 2 METHOD [...] Organization Address City/State/ZIP Code Phon e Number [place] [phone] documented in this encounter Visit Diagnoses Not on filedocumented in this encounter Administered Medications Inactive Administered Medications - up to 3 most recent administrations Medication Order MAR Action Action Date Dose Rate Site acetaminophen (Tylenol) tablet Given 05/03/2020 9:10 AM EDT 1,00 0 mg 1,000 mg 1,000 mg, Oral, ONCE, 1 dose, On Sat05/03/20 at 0900, Administer with SIP of H2O only., Day of Surgery (Day of Procedure), Routine fentaNYL 50 mcg/mL multi-dose injection Given 05/03/2020 11:10 AM EDT 25 mcg 25-50 mcg, Intravenous, EVERY 5 MIN PRN, Starting on Sat05/03/20 at 0955, Until Sat05/03/20 at 1453, Pain, Give 25 mcg every 5 minutes PRN for mild to moderate pain (1-5) Give 50 mcg every 5 minutes PRN for moderate to severe pain (6-10). Hold for respiratory rate less than 10 per minute. Maximum dose 250 mcg over one hour. If ordered with hydromorphone or morphine, give hydromorphone or morphine first and use fentanyl for breakthrough pain., Routine Given 05/03/2020 10:54 AM EDT 25 mcg documented in this encounter Active and Recently Administered Medications Times are shown in EDT. Scheduled Medication Order 05/01/2020 05/02/2020 05/03/2020 acetaminophen (Tylenol) tablet 1,000 mg (COMPLETED) 909 (Given - Provider: Kaitlyn Vickers RN) 1,000 mg, Oral, ONCE, 1 dose, Sat at 0900, Administer with SIP of H2O only., Day of Surgery (Day of Procedure), Routine belladonna-opium (B&O Supprettes) 16.2-60 mg per suppository 60 mg 0930 (Due) 60 mg, Rectal, ONCE, 1 dose, Sat 0 at 0930, This medication should travel with the patient to the OR. Urology will place during the procedure, Routine piperacillin-tazobactam (ZOSYN) 3.375 g vial attach to sodium chloride 0.9% 50 mL Mini-Bag Plus (COMPLETED) 0933 (New B ag - Provider: Mildred Gannon CRNA) 3.375 g, Intravenous, ARMATURE TESTER TO O.R., 1 dose, e 05/03/20 at 0900, Administer over 4 Hours, Warning Vesicant/Irritant Medication Do not administer or Y- site with lactated ringers., Day of Surger y (Day of Procedure), Indication for (Active or Suspected): Prop hylaxis piperacillin-tazobactam (ZOSYN) 3.375 g vial attach to sodium chloride 0.9% 50 mL Mini-Bag Plus 1100 (Due) 3.375 g, Intravenous, ARMATURE TESTER TO O.R., 1 dose, Sat05/03/20 at 1100, Administer over 4 Hours, Warning Vesicant/Irritant Medication Do not administer or Y- site with lactated ringers., Indication for (Active or Suspected): Prophylaxis Continuous Medication Order 05/01/2020 05/02/2020 05/03/2020 lactated ringers infusion (CANCELED) 0912 (New Bag - Provider: Mildred Gannon CRNA) 1,000 mL, at 100 mL/hr, Intravenous, CON TINUOUS, Starting Sat05/03/20 at 0900, Until Sat05/03/20 at 1250, Day of Surgery (Day of Procedure) PRN Medication Order 05/01/2020 05/02/2020 05/03/2020 fentaNYL 50 mcg/mL multi-dose injection 1054 (Given - Provider: Deisy Smith, ZOILA)1110 (Given - Provider: Deisy Smith RN) 25-50 mcg, Intravenous, EVERY 5 MIN PRN, Starting 05/03/20 at 0955, Until 05/03/20 at 1453, Pain, Give 25 mcg every 5 minutes PRN for mild to moderate pain (1-5) Give 50 mcg every 5 minutes PRN for moderate to severe pain (6-10). Hold for respiratory rate less than 10 per minute. Maximum dose 250 mcg over one hour. If ordered with hydromorphone or morphine, give hydromorphone or morphine first and use fentanyl for breakthrough pain., Routine documented in this encounter Care Teams Monomer Recovery Operator Relationship Specialty Start Date End Date Earline Colbert MD PCP - General 09/08/13 [address] [place] [address] documented as of this encounter
--- OUTSIDE RECORDS SUMMARY | 2022-06-07 14:23 | XMS_ITS | Encounter Summary ---
:1970 Author Organization [place] [address] Care Team Providers Name Role Phone Earline Colbert MD Primary Care Provider Encounter Details Date Type Department Care Team Description 01/26/2020 Hospital Encounter Ultrasound [place] [facility] [place], Bilateral [facility] BOLA Carreno nephrolithiasis [facility] [id number] UROLOGY DEPT. [phone] [place] [address] Social History Tobacco Use Types Packs/Day Years [...] as test strip instructed Lancets Misc by [facility] [place]Non-Drug; 0 Combo Route) route daily as needed. [...] Name Priority Date/Time Associated Diagnosis Comme nts US RETROPERITONEAL Routine 01/26/2020 1:33 Bilateral Result s for this COMPLETE PM EDT nephrolithiasis procedure ar e in the results section. documented in this encounter Results US Retroperitoneal Complete (01/26/2020 1:33 PM EDT) Anatomical Region Laterality Modality Abdomen Ultrasound Specimen (Source) Anatomical Collection Method Collection Time Re ceived Time Location / / Volume Laterality 01/26/2020 12:59 PM EDT Impressions 01/26/2020 1:51 PM EDT ?? No prior renal studies available for comparison. 1. ??There is marked left pelvicaliecta sis with thin rim of echogenic renal parenchyma suggestive of long standing obstruction. There is associated dilatation of the proximal left ureter. 2. ??The right kidney contains nonobstr ucting renal calculi, largest within a simple cyst measuring 9.4 mm in greates t dimension. 3. ??Distended bladder is normal in con tour. Thank you for letting us participate in the care of this patient. For questions regarding this report, please contact t he number below. ?Mary Huddleston [facility] Physician Electronically Signed Final Report ?? 01:50 pm Narrative 01/26/2020 1:51 PM EDT Renal ? (Signed Final 01/26/2020 01:50 pm) PATIENT INFO: ID #: ? [id number] ?: ??[birth year] (49 yrs)(F) Name: ? CHERELLE VAUGHAN ? Visit Date: 01/26/2020 12:59 pm PERFORMED BY: Performed By: ? Mary Chan RDMS Attending: ?Carla DUGGAN, Darius Ram Referred By: ?EV Crenshaw Location: ? [place] SERVICE(S) PROVIDED: ??URETRO - Retroperitoneal Complete - I [id number] ? [id number] INDICATIONS: ??history of bilateral nephrolithiasis, and highly ??resistant bacterial cultures TECHNIQUE/SCAN QUALITY: Scan Quality: ?? Scan is technically li mited due to body habitus. RIGHT KIDNEY: Size (cm) ?L: ??12.2 Cortical Thickness: ?Normal Cortical Echogenicity: ?? Normal Hydronephrosis: ?No sonogr aphic evidence Comment: ?Mid 9.4 mm calculus LEFT KIDNEY: Size (cm) ?L: ??12.1 Cortical Thickness: ?Normal Cortical Echogenicity: ?? Normal Hydronephrosis: ?Severe wi th cortical thinning (severe ?g ra Comment: ?Left [place] vs multicystic URINARY BLADDER: Pre-void (cm) ? L: ??8.2 ? A P: ??5.8 ? TV: ??9.3 Vol (ml): ?231.6 Comment: ?Partially distended, norm al contour Procedure Note Mary Felder MD - 01/2020 Renal (Signed Final 01/26/2020 01:50 pm ) PATIENT INFO: ID #: [id number] : [birth year] (49 y rs)(F) Name: CHERELLE VAUGHAN Visit Date: 2019 12:59 pm PERFORMED BY: Performed By: Mary Chan RDMS Attending: Mary Aguirre MD Referred By: EV TOLENTINO Location: [place] SERVICE(S) PROVIDED: URETRO - Retroperitoneal Complete [place] [facility] [id number] INDICATIONS: history of bilateral nephrolithiasis, a nd highly resistant bacterial cultures TECHNIQUE/SCAN QUALITY: Scan Quality: Scan is technically limit ed due to body habitus. RIGHT KIDNEY: Size (cm) L: 12.2 Cortical Thickness: Normal Cortical Echogenicity: Normal Hydronephrosis: No sonographic evidence Comment: Mid 9.4 mm calculus LEFT KIDNEY: Size (cm) L: 12.1 Cortical Thickness: Normal Cortical Echogenicity: Normal Hydronephrosis: Severe with cortical th inning (severe gra Comment: Left [place] vs multicystic URINARY BLADDER: Pre-void (cm) L: 8.2 AP: 5.8 TV: 9.3 Vol (ml): 231.6 Comment: Partially distended, normal co ntour IMPRESSION No prior renal studies available for co mparison. 1. There is marked left pelvicaliectasi s with thin rim of echogenic renal parenchyma suggestive of long standing obstruction. There is associated dilatation of the proximal left ureter. 2. The right kidney contains nonobstruc ting renal calculi, largest within a simple cyst measuring 9.4 mm in greates t dimension. 3. Distended bladder is normal in conto ur. Thank you for letting us participate in the care of this patient. For questions regarding this report, please contact t he number below. Mary Huddleston, Staff Ph ysician Electronically Signed Final Report 01/25 01:50 pm Ev Tolentino OIL WINTERIZER IMG US GEN ORDERABLES documented in this encounter Visit Diagnoses Diagnosis Bilateral nephrolithiasis documented in this encounter Care Teams Barrow Worker Relationship Specialty Start Date End Date Earline Colbert MD PCP - General 09/08/13 [address] [place] [address] documented as of this encounter
--- OUTSIDE RECORDS SUMMARY | 2022-06-07 14:23 | XMS_ITS | Encounter Summary ---
:1970 Author Organization [place] [address] Care Team Providers Name Role Phone Earline Colbert MD Primary Care Provider Encounter Details Date Type Department Care Team Description 04/29/2020 Telephone Urology at [facility] Carolin Lau APRN [facility] [place] [address] UROLOGY [phone] [place] [address] (Wo rk) Social History Tobacco Use Types Packs/Day Years Used Date Smoking Tobacco: Never Smokeless Tobacco: Never Alcohol Use Standard Drinks/Week Comments No 0 (1 standard drink = 0.6 oz pure alcoho l) Sex Assigned at Date Recorded Not on file documented as of this encounter Miscellaneous Notes Telephone Encounter - Carolin Lau RN - 04/29/2020 2:56 PM EDT Orders sent for sterile water and cath tip syringes for Telephone Encounter - Carolin Lau RN - 04/29/2020 2:47 PM EDT ----- Message from Patricia Chamberlain MD sent at 04/28/2020 5:10 PM EDT ----- Regarding: home bladder irrigation Hi there - could someone send supplies for pt to perform home saline bladder irrigations three timesweekly with sterile saline 120-250ml per irrigation with 60cc cath tip syringe. She has catheters athome already. Thanks, RM documented in this encounter Plan of Treatment Not on filedocumented as of this encounter Visit Diagnoses Diagnosis Bladder irritation Other specified disorders of bladder documented in this encounter Care Teams Auto Cleaner Relationship Specialty Start Date End Date Earline Colbert MD PCP - General 09/08/13 [address] [place] [address] documented as of this encounter
--- OUTSIDE RECORDS SUMMARY | 2022-06-07 14:23 | XMS_ITS | Encounter Summary ---
:1970 Author Organization [place] [address] Care Team Providers Name Role Phone Earline Colbert MD Primary Care Provider Encounter Details Date Type Department Care Team Description 08/18/2020 Office Visit Urology at [facility] [place] Patricia Chamberlain, Chronic UTI; [facility] IC (interstitial cystitis); Drive [facility] Atrophic kidney; [place], [place] Dr Urinary retention [address] [place] [address] [phone] Social History Tobacco Use Types Packs/Day Years Used Date Smoking Tobacco: Never Smokeless Tobacco: Never Alcohol Use Standard Drinks/Week Comments No 0 (1 standard drink = 0.6 oz pure alcoho l) Sex Assigned at Date Recorded Not on file documented as of this encounter Last Filed Vital Signs Vital Sign Reading Time Taken Comments Blood Pressure 136/78 08/18/2020 1:09 PM EST Pulse 92 08/18/2020 1:09 PM EST Temperature - - Respiratory Rate - - Oxygen Saturation - - Inhaled Oxygen Concentration - - Weight - - Height - - Body Mass Index - - documented in this encounter Progress Notes Patricia Chamberlain MD - 08/18/2020 1:00 PM EST UROLOGY CLINIC VISIT CC:recurrent UTI / non functional left kidney ID Libiarey Burgos is a 50 y.o. female with [...] Diagnosed with IC in 2013. Per Ev Mccraty, HVAC ESTIMATOR note 12/31/19 Pelvic pain history: 01/2013: pelvic pain and culture showing e.coli tx with cipro. Follow up cultures were negative but she continued to have gross hematuria. 08/13/2013: saw Dr. Brandt, had a cysto which showed bladder inflammation. CTU showed bladder wall thickening and bilateral nonobstructing renal stones 09/2013: Dr. Norris attempted to scope her at her first visit to [facility], but she could not [...] Regino Stoner Verified: 05/10/2020 Pathologist Performed at: -[facility] Dept. of Pathology, [place], [place] ?? 05/17/20: started on self bladder [...] 2 months to every other month with symptos including blood in urine, flank pain. She does not have dysuria. She is working on weight loss BMI [...] whitney 01/20/13: 10-50K e.coli lepe sensitive ?? MANAGER UTILITIES HISTORY G 3 P 3 Route: Regular menstruation PAST MEDICAL HISTORY IDDM- last A1c 6. Recurrent stones HTN PAST SURGICAL HISTORY Left shoulder surgery Past Surgical History: Procedure Laterality Date ??? LITHOTRIPSY ? ? PRO CYSTO W URETEROSCOPY &/OR PYELOSCOPY, DX 10/08/2013 CYSTOURETEROSCOPY, DIAGNOSTIC performed by Duane Norris III, MD at [facility] MAIN OR ??? PRO CYSTOURETHROSCOPY, FULGUR .5-2CM SHANICE N/A 05/03/2020 CYSTO, FULGURATION OF BLADDER LESION, W OR W/O BX, 0.5 TO 2.0CM (WRVU 4.62) performed by Satinder Darby MD at [facility] MAIN [...] Disposable, 60 mL Syringe 1 each by [facility] [place]Non-Drug; Combo Route) route once [...] ??? Blood-Glucose Meter Misc 1 each by [facility] [place].(Non-Drug; Combo Route) route [...] Use as instructed ??? Lancets Misc by [facility] [place].(Non-Drug; Combo Route) route daily [...] for the past 24 hrs: Pulse BP 08/18/20 1309 92 136/78 PHYSICAL EXAM Estimated body mass index is 57.32 kg/m?? as calculated from the following: Height as of 04/08/20: 172.7 cm (5' 8). Weight as of 04/08/20: 171 kg (377 lb). GEN: Alert and [...] Negative for blood, leukocyte esterase, + Nitrites IMAGING: I personally reviewed the following imaging: [...] cx mixed. No febrile infections. Asymptomatic today- UA + nitrite/neg blood and leuks. Will not treat. She will continue gent abx irrigations. Discussed that when she has symptoms she should send urine for culture and micro and only treat if clean catch with- UA/micro showing +>10WBC and >50K of one organism. 2. Chronic urinary retention has mom doing CIC daily. She is requesting period of bartlett cath while her mother is away x 1 week as she is not able to reach her urethra - we discussed risks/ benefits andwith an understanding she will have mom place before leaving town- supplies given 3.hx of IC - recent bx confirms chronic mucosal inflammation - working on behavioral management 5. Atrophic / non functioning left kidney - discussed options including obs vs. Nephrectomy and risks and benefits. We discussed that nephrectomy may not reduce the number of cystitis infections / would be high risk given current body habitus. She would like to work on weight loss and revisit. 6. Bilateral non obstructing renal stones - appear parenchymal - discussed options including obs vs.Surgical intervention - she prefers obs at this time 7. H/o Micro hematuria PLAN: Increase CIC to BID Continue abx irrigations RTC 4-6mo follow up I have extensively counseled her on reasons to call or return in the interim Patricia Chamberlain MD documented in this encounter Plan of Treatment Not on filedocumented as of this encounter Visit Diagnoses Diagnosis Chronic UTI Urinary tract infection, site not specif ied IC (interstitial cystitis) Chronic interstitial cystitis Atrophic kidney Renal sclerosis, unspecified Urinary retention Retention of urine, unspecified documented in this encounter Care Teams Inkjet Operator Relationship Specialty Start Date End Date Earline Colbert MD PCP - General 09/08/13 [address] [place] [address] documented as of this encounter
--- OUTSIDE RECORDS SUMMARY | 2022-06-07 14:23 | XMS_ITS | Encounter Summary ---
:1970 Author Organization [facility] [place] [address] Care Team Providers Name Role Phone Earline Colbert MD Primary Care Provider Reason for Visit Consultation (Routine) - Specialty Diagnoses / Procedures Referred By Contact Refer red To Contact Urology Diagnoses Interstitial cystitis (chronic) without hematuria Urinary tract infection, site not specified INTERSTITIAL CYSTITIS, UTI Earline Colbert MD [facility] [address] [place] [address] [place] [address] Fax: Referral ID Status Reason Start Date Expiration Date Visits V isits Requested Authorized [id number] Consult, Test 12/03/2019 06/04/2020 [facility] PCP Updated and/or Approved Encounter Details Date Type Department Care Team Description 12/31/2019 [place] Visit [place] [facility] Harsh Bea[place]gard, Bilateral nephrolithiasis; (TeleHealth) [facility] [place] Carreno History of UTI; [facility] (interstitial cystitis); [facility] Elevated serum creatinine [id number] UROLOGY DEPT. [phone] [place], [place] [address] Social History Tobacco Use Types Packs/Day Years Used Date Smoking Tobacco: Never Smokeless Tobacco: Never Alcohol Use Standard Drinks/Week Comments No 0 (1 standard drink = 0.6 oz pure alcoho l) Sex Assigned at Date Recorded Not on file documented as of this encounter Progress Notes Ev Davila APRN - 12/31/2019 1:40 PM EDT [facility] SECTION OF UROLOGY OUT PATIENT NEW PATIENT VISIT Ms. Cherelle Vaughan is a 49 year old woman who presents for diagnosis of IC treatments. I LAST SAW HER IN 2013. Cherelle Vaughan consented to conduct this clinical encounter by telephone. The patient acknowledges that the insurance may be billed for the care provided, similar to an in person appointment. The patient is currently at home in [place] Prior to beginning the visit, I confirmed the patients name and date of . I obtained the patient's consent to receiving health care services at [facility] through telemedicine. We discussed the opportunities and limitations of delivering health care services through telemedicine. I told the patient that the telemedicine service is being delivered over a secure connection, except in the event of emergency conditions when such requirements may be waived. Patient informed that telemedicine informed consent form is available for patient's review in -'s patient portal, [facility]-. ?? Pelvic pain history: 01/2013: pelvic pain and culture showing e.coli tx with cipro. Follow up cultures were negative but she continued to have gross hematuria. 08/13/2013: saw Dr. Brandt, had a cysto which showed bladder inflammation. CTU showed bladder wall thickening and bilateral nonobstructing renal stones 09/2013: Dr. Norris attempted to scope her at her [place] [facility] but she could not tolerate it,so she [...] GI distress on this, even with yogurt ?? She feels ok now. No UTI symptoms. She states her cre last week was high, 1.8. no recent imaging for stones. She has no pain. She is still on elmiron 100 twice daily, she has been on this for 6 years. No vision issues, just got her eyes checked and all was good. Eye MD did not talk to her about the elmiron. She is also on Trosipium Chloride, 20 mg daily. She is off neurontin, she was on [...] Diabetes mellitus E11.9 ??? Hypertension I10 ??? Nephrolithiasis N20.0 ??? Simple ovarian cyst N83.209 ??? Morbid obesity with BMI of 50.0-59.9, adult E66.01, Z68.43 ??? Pelvic pain in female R10.2 ??? Gross hematuria R31.0 ??? Lower urinary tract symptoms (LUTS) R39.9 depression Surgical History URS-Left Shoulder surgery Tubal ligation ?? Social History 3 kids, all vaginal. No smoking or ETOH Family hx: negative ROS: Constitutional: Denies fever, chills, weight loss/gain Eyes: Denies acute vision change ENT: Denies sinus congestion, recent URI Pulmonary: Denies asthma, cough, recent pneumonia, SOB Cardiovascular: Denies chest pain, arrhythmia, ID GI:Denies GI bleed, GERD, constipation or diarrhea : As per HPI Endocrine: Denies diabetes, thyroid disease Integumentary: Denies skin cancer, rash Heme/lymph: Denies easy bleeding/bruising Neurologic: Denies CVA/TIA Psychiatric: Denies depression or anxiety Musculoskeletal: Denies back pain, weakness Allergy/immunology: Denies immune disorder Anesthesia complications: Denies PE:?? Alert and oriented : deferred (11/02: normal external genitalia. Urethral discomfort. Could not get to her trigone. Nopelvic floor discomfort. Well supported uterus) Musculoskeletal: grossly normal Neurologic: grossly normal ?? UA: not obtained PVR: deferred 11/02: 50 cc with scanner ?? Imaging: CT from j: 08/04: There is a left lower pole stone of 1.2 cm ?? Assessment: IC History of nephrolithiasis without recent imaging Very resistant e.coli bacteriuria ?? Recommendations: I will see her back with a renal US/CMP in the next months. In the meantime, will have her pursue hydration, timed and double void, moderate her bowels. I reviewed her bladder biopsy history and IC diagnosis. We discussed elmiron side effects. I emphasized she should come off of this, and we will do this when I see her next. We will get her back on neurontin. We will defer motrin until I know what her creatinine is. Will consider elmiron instillations. Defer motrin. Will consider atarax She has the IC list We will defer PT at this time Will consider referral to ID as well, given her resistance pattern. All the patient's questions were answered to her satisfaction. ?? epf with me in next month with renal US 20 min spent with pt with > 15 spent in discussion ?? Ev Tolentino APRN documented in this encounter Plan of Treatment Not on filedocumented as of this encounter Results US Retroperitoneal Complete (01/26/2020 [...] contact t he number below. ?Mary Huddleston [facility] Physician Electronically Signed Final Report ?? 01:50 pm Narrative 01/26/2020 1:51 PM EDT Renal ? (Signed Final 01/26/2020 01:50 pm) PATIENT INFO: ID #: ? [id number] ?: ??[birth year] (49 yrs)(F) Name: ? CHERELLE VAUGHAN ? Visit Date: 01/26/2020 12:59 pm PERFORMED BY: Performed By: ? Mary Chan RDMS Attending: ?Carla DUGGAN, Darius Ram Referred By: ?EV Crenshaw Location: ? [place] SERVICE(S) PROVIDED: ??URETRO - Retroperitoneal Complete - I [id number] ? [id number] INDICATIONS: ??history of bilateral nephrolithiasis, and highly [...] cortical thinning (severe ?g ra Comment: ?Left [place] vs multicystic URINARY BLADDER: Pre-void (cm) ? L: ??8.2 ? A P: ??5.8 ? TV: ??9.3 Vol (ml): ?231.6 Comment: ?Partially distended, norm al contour Procedure Note Mary Felder MD - 01/2020 Renal (Signed Final 01/26/2020 01:50 pm ) PATIENT INFO: ID #: [id number] : 70 (49 y rs)(F) Name: CHERELLE VAUGHAN Visit Date: 2019 12:59 pm PERFORMED BY: Performed By: Mary Chan RDMS Attending: Mary Aguirre MD Referred By: EV TOLENTINO Location: [place] SERVICE(S) PROVIDED: URETRO - Retroperitoneal Complete - [facility] [id number] INDICATIONS: history of bilateral nephrolithiasis, a nd [...] cortical th inning (severe gra Comment: Left [place] vs multicystic URINARY BLADDER: Pre-void (cm) L: [...] questions regarding this report, please contact t prateek number below. Mary Huddleston, Staff Ph ysician Electronically Signed Final Report 01/25 01:50 pm Ev Tolentino APRN IMG US GEN ORDERABLES (ABNORMAL) Comprehensive metabolic panel (non-fasting) (01/26/2020 12:18 PM EDT) athologist Signature Glucose Lvl 128 65 - 199 [facility] mg/dL [facility] Comment: Diabetes: >=200 mg/dL plus symp toms BUN 17 8 - 18 mg/dL [facility] Creatinine 1.57 (H) 0.70 - 1.20 mg/dL [facility] Sodium 139 135 - 145 mmol/L [facility] Potassium 4.2 3.5 - 5.0 mmol/L [facility] Comment: Please note: ??Patients with WBC >100,00 0 may have falsely elevated Potassium levels. ??For accurate Potassium quantif ication in these patients send serum separator tube (gold top) for subsequent determinations. ??Contact the Clinical Chemistry Laboratory if there are any qu estions. Chloride 100 98 - 107 mmol/L [facility] CO2 24 22 - 31 mmol/L [facility] Anion Gap 15 5 - 15 mmol/L [facility] Calcium 12.0 (H) 8.5 - 10.5 mg/dL [facility] Total Protein 7.4 6.1 - 8.0 gm/dL [facility] Albumin 4.1 3.2 - 5.2 gm/dL [facility] AST 13 0 - 30 unit/L [facility] ALT 12 0 - 30 unit/L [facility] Alk Phos 58 35 - 105 unit/L [facility] Total Bilirubin 0.3 0.2 - 1.3 mg/dL [facility] Estimated GFR 38 (L) >=60 mL/min/1.73 m?? [facility] Comment: The eGFR was calculated using the CKD-EP I equation. As with all creatinine based estimates of kidney function, eGFR values calculated with the CKD-EPI equation are not accurate in patients wi th acute kidney failure, extremes of body mass or the acutely ill. [email or web address] eGFR 44 (L) >=60 mL/min/1.73 m?? [facility] Comment: The eGFR was calculated using the CKD-EP I equation. As with all creatinine based estimates of kidney function, eGFR values calculated with the CKD-EPI equation are not accurate in patients wi th acute kidney failure, extremes of body mass or the acutely ill. [email or web address] Specimen Anatomical Collection Method Collection Time Receive d Time (Source) Location / / Volume Laterality Blood specimen 01/26/2020 12:18 0 (specimen) PM EDT 12:38 PM EDT Resulting Agency Comment Spec In Lab Ev Vallejomichael Tolentino APRN CHEMISTRY ORDERABLES Performing Organization Address City/State/ZIP Code Phon e Number [place] [phone] documented in this encounter Visit Diagnoses Diagnosis Bilateral nephrolithiasis History of UTI Personal history of urinary (tract) infe ction IC (interstitial cystitis) Chronic interstitial cystitis Elevated serum creatinine Other nonspecific findings on examinatio n of blood Bilateral nephrolithiasis documented in this encounter Care Teams Central Office Operator Supervisor Relationship Specialty Start Date End Date Earline Colbert MD PCP - General 09/08/13 [address] [place] [address] documented as of this encounter
--- OUTSIDE RECORDS SUMMARY | 2022-06-07 14:23 | XMS_ITS | Encounter Summary ---
:1970 Author Organization [facility] [place] [address] Care Team Providers Name Role Phone Earline Colbert MD Primary Care Provider Encounter Details Date Type Department Care Team Description 04/25/2020 Telephone [place] [facility] Carolin Lau APRN [facility] [place] [address] UROLOGY [phone] [place] [address] (Wo rk) Social History Tobacco Use Types Packs/Day Years Used Date Smoking Tobacco: Never Smokeless Tobacco: Never Alcohol Use Standard Drinks/Week Comments No 0 (1 standard drink = 0.6 oz pure alcoho l) Sex Assigned at Date Recorded Not on file documented as of this encounter Miscellaneous Notes Telephone Encounter - Carolin Lau RN - 04/25/2020 2:41 PM EDT Call placed to patient to patient to review upcoming preop urine and antibiotics. No answer. Messageleft on voicemail requesting a call back to discuss. When patient calls back, will request lab location for urine culture and send a script for Macrobid 100mg BID x7 days to preferred pharmacy. Awaiting return call. Telephone Encounter - Carolin Lau RN - 04/25/2020 2:41 PM EDT ----- Message from Stacie Greene sent at 04/25/2020 1:54 PM EDT ----- Regarding: can you call? Can you call this patient? I cant go over medications with her Thank you ----- Message ----- From: Patricia Chamberlain MD Sent: 04/24/2020 10:32 PM EDT To: Stacie Quinones or Carolin could you please call and have her drop a new urine culture off in setting of OR on Fri, and place in book? Also start on empiric Macrobid 100mg BID x 7 days. Thanks, RM documented in this encounter Plan of Treatment Not on filedocumented as of this encounter Visit Diagnoses Not on filedocumented in this encounter Care Teams Desk Clerk Relationship Specialty Start Date End Date Earline Colbert MD PCP - General 09/08/13 [address] [place] [address] documented as of this encounter
--- OUTSIDE RECORDS SUMMARY | 2022-06-07 14:23 | XMS_ITS | Encounter Summary ---
:1970 Author Organization [facility] [place] [address] Care Team Providers Name Role Phone Earline Colbert MD Primary Care Provider Reason for Visit Reason Comments Medication Refill Encounter Details Date Type Department Care Team Description 01/26/2021 Refill Urology [place] [facility] [place] Ev Davila APRN [facility] [place] [address] UROLOGY DEPT. [phone] [place], [place] [address] (Wo rk) Social History Tobacco Use Types Packs/Day Years Used Date Smoking Tobacco: Never Smokeless Tobacco: Never Alcohol Use Standard Drinks/Week Comments No 0 (1 standard drink = 0.6 oz pure alcoho l) Sex Assigned at Date Recorded Not on file documented as of this encounter Miscellaneous Notes Telephone Encounter - Ivania Hardy LPN - 01/31/2021 3:19 PM EDT Patient returned call to clinic. Patient reports that she has been taking hydroxyzine and citalopramwith no side effects, would you like to refill this? Telephone Encounter - Ivania Hardy LPN - 01/27/2021 2:50 PM EDT Received a refill request for Atarax. Per Ev Ngo, There is a contraindication with hydroxyzine and citalopram- it can prolong qt intervals in the heart, if she has tolerated it well in thepast Ev will consider it but there is still a risk. Call placed to patient to review, unable to reach, left message to call clinic. documented in this encounter Plan of Treatment Not on filedocumented as of this encounter Visit Diagnoses Not on filedocumented in this encounter Care Teams Universal Winding Machine Operator Relationship Specialty Start Date End Date Earline Colbert MD PCP - General 09/08/13 [address] [place] [address] documented as of this encounter
--- OUTSIDE RECORDS SUMMARY | 2022-06-07 14:23 | XMS_ITS | Encounter Summary ---
:1970 Author Organization [facility] [place] [address] Care Team Providers Name Role Phone Earline Colbert MD Primary Care Provider Reason for Visit Reason Comments Other Encounter Details Date Type Department Care Team Description 03/02/2014 Telephone [place] [facility] [place]ila, [facility] [place] [address] [facility] [phone] UROLOGY DEPT. [place], [place] [address] (Wo rk) Social History Tobacco Use Types Packs/Day Years Used Date Smoking Tobacco: Never Smokeless Tobacco: Never Alcohol Use Standard Drinks/Week Comments No 0 (1 standard drink = 0.6 oz pure alcoho l) Sex Assigned at Date Recorded Not on file documented as of this encounter Miscellaneous Notes Telephone Encounter - Ev Davila APRN - 03/02/2014 3:41 PM EDT UA results were faxed to me. It seems a urine culture was done, but the result is still not indicated. I called the Nurse at [facility] to request the results ([phone]). LM for her to fax or call us with the results. Will cc this to my talend etl developer to watch for the results. Will wait for the results. documented in this encounter Plan of Treatment Not on filedocumented as of this encounter Visit Diagnoses Not on filedocumented in this encounter Care Teams Cleaning Team Member Relationship Specialty Start Date End Date Earline Colbert MD PCP - General 09/08/13 [address] [place] [address] documented as of this encounter
--- OUTSIDE RECORDS SUMMARY | 2022-06-07 14:23 | XMS_ITS | Encounter Summary ---
:1970 Author Organization [facility] [place] [address] Care Team Providers Name Role Phone Earline Colbert MD Primary Care Provider Reason for Referral Diagnostic Test (Routine) - Closed Specialty Diagnoses / Procedures Referred By Contact Refer red To Contact Radiology Diagnoses Hydronephrosis, left Ev Davila [facility] Rad Ct Scan Procedures CT Abdomen & Pelvis [place] [address] [place] [address] Referral ID Status Reason Start Date Expiration Date Visits V isits Requested Authorized [id number] Closed Specialty 01/27/2020 07/24/2020 1 1 Service Requested Reason for Visit Diagnostic Test (Routine) - Closed Specialty Diagnoses / Procedures Referred By Contact Refer red To Contact Radiology Diagnoses Hydronephrosis, left Ev Davila [facility] Rad Ct Scan Procedures CT Abdomen & Pelvis [place] [address] [place] [address] Referral ID Status Reason Start Date Expiration Date Visits V isits Requested Authorized [id number] Closed Specialty 01/27/2020 07/24/2020 1 1 Service Requested Encounter Details Date Type Department Care Team Description 01/28/[address] [place] [facility] [place], Hydronephrosis, left [facility] [address] [place] [address] UROLOGY DEPT. [phone] [place] [address] Social History Tobacco Use Types Packs/Day Years [...] as test strip instructed Lancets Misc by [facility].(Non-Drug; 0 Combo Route) route daily as needed. loratadine (CLARITIN) Take 1 tablet by 30 tablet 12 10/02/19 14 10 mg tablet mouth daily. fluconazole (Diflucan) 0 01/02/2020 150 mg Tablet cephALEXin (Keflex) Take 1 capsule by 30 capsule 0 0 02/07/2020 500 mg Capsule mouth 3 times daily for 10 days. gabapentin (Neurontin) Take 1 capsule tid x5 [...] Name Priority Date/Time Associated Diagnosis Comme nts CT ABDOMEN AND Routine 01/28/2020 3:02 PM Hydronephrosis, left Results for this PELVIS WO CONTRAST EDT procedure are in the results section. documented in this encounter Results CT Abdomen & Pelvis [...] please contact e number below. ? Narrative 01/28/2020 3:24 [...] report, please contact e number below. Ev Justiceay [facility] IMG CT ORDERABLES documented in this encounter Visit Diagnoses Diagnosis Hydronephrosis, left Hydronephrosis documented in this encounter Care Teams Brake Repairer Relationship Specialty Start Date End Date Earline Colbert MD PCP - General 09/08/13 [address] [place] [address] documented as of this encounter
--- OUTSIDE RECORDS SUMMARY | 2022-06-07 14:23 | XMS_ITS | Encounter Summary ---
:1970 Author Organization [facility] [address] Care Team Providers Name Role Phone Earline [...] Expiration Date Visits Requ ested Visits Authorized [id number] 1 1 Encounter Details Date Type Department Care Team Description 05/03/2020 Anesthesia Event Main Operating Room Gallo Darling MD [facility] [place] [address] [facility] John Angeles MD [facility] [place] [address] [facility] [place] [address] Anesthesia Record Procedure Summary Procedure Name Responsible Anesthesia Start Anesthesia Stop Anesthesiologist Time Time CYSTO, FULGURATION OF AbessMejia MD 05/03/20 0912 1021 BLADDER LESION, W OR W/O BX, 0.5 TO 2.0CM (WRVU 4.62) (Bladder) Events Date Time Event Comment 05/03/2020 0912 0912 Start 0918 AN Verify 0918 An Start Data 0926 An Induction 0927 An Intubation 0928 Anesthesia Ready 1011 Extubation/LMA Out 1021 an stop data 1021 Recovery or ICU Handoff Patient care was transferred to the destination unit staff after review of the patient's medica l history, current anesthetic/surgi oskar status and plan, according to the Provider Handoff Checklist. 1021 Stop Name Total fentaNYL 100 mcg IV Lidocaine 50 mg Propofol 220 mg Rocuronium 5 mg PHENYLephrine 160 mcg Ondansetron 4 mg piperacillin-tazobactam (ZOSYN) 3.375 g vial attach to sodium chloride 0.9% 3.375 g 50 mL Mini-Bag Plus Succinylcholine 160 mg lactated ringers infusion 0 mL Agents Name O2 Air N2O Sevoflurane (et) Blood No blood administrations on file. Lines, Drains, and Airways Type Details Placement Removal Urethral Catheter 10/08/13; indwelling 10/08/13 0000 by double lumen catheter; Stiven Gama, RN 100% silicone; 18; inserted (By Dr. Dany Leonard); 1; leg bag to dependent drainage NG/OG Tube 05/03/20; 09; 05/03/20 0928 by orogastric; 18 Fr; mouth Mildred Gannon CRNA Incision 10/08/13; urethral 10/08/13 0000 by 03/19/22 171 5 by meatus; 03/19/22 (LDA Stiven Gama, RN Mulle r, Dierdre L cleanup utility RA#[id number]); 1715 (LDA cleanup utility RA#[id number]) PIV 05/03/20; 0913; median 05/03/20 0913 by 05/03/20 1250 by cubital vein (antecubital Kaitlyn Vickers, Deisy Ann, kirk), right; RN qmlm-stu-glpfba catheter system; 20 gauge; Zara Riversr, RN; distraction, intradermal injection, tolerated well, appears comfortable; 05/03/20; 1250 ETT Mask Ventilation: Easy 05/03/20 0927 by 05/03/20 1011 by (1); ETT Type: Cuffed, Mildred Gannon, Mildred Harris, Oral; ETT Size: 7 mm; Mac TARGET DEVELOPER TARGET DEVELOPER Blade: 4; Notes: Asleep, Pre-O2, Stylette; Attempts: 1; Laryngoscopy Grade: 1; ETT Placement Verified By: Auscultation, Capnometry, Visual; Inserted by: Mildred Gannon CRNA documented in this encounter Social History Tobacco Use Types Packs/Day Years Used Date Smoking Tobacco: Never Smokeless Tobacco: Never Alcohol Use Standard Drinks/Week Comments No 0 (1 standard drink = 0.6 oz pure alcoho l) Sex Assigned at Date Recorded Not on file documented as of this encounter OR Notes Anesthesia Postprocedure Evaluation - Mejia Darling MD - 05/03/2020 6:12 PM EDT Department of Anesthesiology Post-procedure Note Patient: Libia Burgos Procedure Summary Date: 05/03/20 Room / Location: [facility] OR [facility] MAIN OR Anesthesia Start: 911 Anesthesia Stop: 1020 Procedure: CYSTO, FULGURATION OF BLADDER LESION, W OR W/O BX, 0.5 TO 2.0CM (WRVU 4.62) (N/A Bladder) Diagnosis: (bladder cancer) Surgeon: Satinder Darby MD Responsible Provider: Mejia Darling MD Anesthesia Type: general ASA Status: 3 All Anesthesia Providers: Anesthesiologist: Mejia Darling MD TARGET DEVELOPER: Mildred Gannon CRNA Vitals Value Taken Time BP 111/55 05/03/20 1130 Temp 35.9 ??C (96.6 ??F) 05/03/20 1021 Pulse Resp 16 05/03/20 1130 SpO2 96 % 05/03/20 1130 Pain Level 3 05/03/20 1130 Patient Location: PACU/[facility] Level of Consciousness: Conscious but Sleepy Pain Management: Satisfactory Analgesia PONV: None Cardiovascular Status: At Baseline Respiratory Status: Supplemental O2 (NC or FM) Postoperative Fluid Status: Intravascular EUvolemia Possible Anesthetic Complications: NONE apparent at time of evaluation Final Primary Anesthesia Type: General (The anesthetic type performed was the same as planned.) Comments: Still sleepy at time of my exam earlier today, but doing well. Uneventful course until d/cper record review Anesthesia Preprocedure Evaluation - Mejia Darling MD - 04/28/2020 5:28 PM EDT Images from the original note were not included. Pre-Anesthesia Evaluation for: Libia Burgos a 50 y.o. female. Procedure(s): CYSTO, FULGURATION\BLADDER LESION\W\WO BX\LESS THAN 0.5CM (WRVU 4.05) CYSTO, FULGURATION OF BLADDER LESION, W OR W/O BX, 0.5 TO 2.0CM (WRVU 4.62) CYSTO, FULGURATIONOF BLADDER LESION, W OR W/O BX, 2.0 TO 5.0 CM (WRVU 5.44) CYSTO, RESECTION BLADDER TUMOR, GREATER THAN 5.0CM (WRVU 7.5) CYSTO, RETROGRADE, URETEROPYELOGRAPHY (WRVU 2.37) Patient Active Problem List Diagnosis ??? Other hydronephrosis ??? History of nephrolithiasis ??? Acute UTI (urinary tract infection) ??? History of UTI ??? IC (interstitial cystitis) ??? Elevated serum creatinine ??? Lower urinary tract symptoms (LUTS) ??? Simple ovarian cyst ??? Morbid obesity with BMI of 50.0-59.9, adult ??? Pelvic pain in female ??? Gross hematuria ??? Diabetes mellitus ??? Hypertension ??? Bilateral nephrolithiasis Past Medical History: Diagnosis Date ??? Diabetes mellitus ??? Hypertension ??? Nephrolithiasis Past Surgical History: Procedure Laterality Date ??? LITHOTRIPSY ? ? PRO CYSTO W URETEROSCOPY &/OR PYELOSCOPY, DX 10/08/2013 CYSTOURETEROSCOPY, DIAGNOSTIC performed by Duane Norris III, MD at [facility] MAIN OR ??? TONSILLECTOMY ??? TUBAL LIGATION Social History Tobacco Use ??? Smoking status: Never Smoker ??? Smokeless tobacco: Never Used Substance Use Topics ??? Alcohol use: No Social History Substance and Sexual Activity Drug Use No Allergies Allergen Reactions ??? Amitriptyline Anxiety Delusions and panic attacks ??? Compazine [Prochlorperazine] Anxiety Feeling like bugs crawling on me Medications: MAR and/or home medications have been reviewed. Physical Exam: No data found. There is no height or weight on file to calculate BMI. Airway Assessment: Mallampati: I TM distance: >3 FB Neck ROM: full Cardiovascular Assessment: Rhythm: regular Rate: normal Pulmonary Assessment: breath sounds clear to auscultation Dental Assessment: Misc Assessment: Anesthesia Plan: ASA 3 general, with a(n) intravenous induction *Preliminary note* 50 y.o. female with bladder cancer scheduled for cysto. Medical History: DM, HTN, severe morbid obesity (BMI 57), chronic cystitis Surgical History: tubal ligation, tonsillectomy, lithotripsy, cysto Anesthetic History: Previously tolerated GA. Gr1 view with mac4 Allergies reviewed Labs reviewed NPO Status: --- Appropriately NPO Anesthetic Plan: GA w/ ETT/LMA Standard ASA monitoring PIV access Earline Moura MD 04/28/2020 Addendum 05/03/2020 (MD Phong): as above. Adequate CP performance status (walks on track 1/2 mile daily in 15 min). Risks/options reviewed. Pt requests to proceed with GA. Plan ETT d/t morbid obesity.BS 201 this AM - pt states would not normally take insulin for this b/c she is on 3 oral agents and took her lantus last night (regular dose - 13 units) Region - Other Informed Consent: Anesthetic plan and risks discussed with patient. Use of blood products discussed with patient who consented to blood products. Plan discussed with attending and TARGET DEVELOPER. PAT Clinic Note documented in this encounter Plan of Treatment Not on filedocumented as of this encounter Visit Diagnoses Not on filedocumented in this encounter Administered Medications Inactive Administered Medications - up to 3 most recent administrations Medication Order MAR Action Action Date Dose Rate Site fentaNYL 50 mcg/mL multi-dose Given 05/03/2020 9:58 AM EDT 25 mc g injection PRN, Starting on Sat05/03/20 at 0952, Until Sat05/03/20 at 1021, Anesthesia Intra-op, Routine Given 05/03/2020 9:52 AM EDT 25 mcg Given 05/03/2020 9:34 AM EDT 50 mcg lactated ringers infusion New Bag 05/03/2020 9:12 AM EDT 1,000 mL, at 100 mL/hr, Intravenous, CONTINUOUS, Starting on Sat05/03/20 at 0900, Until Sat05/03/20 at 1250, Day of Surgery (Day of Procedure) lidocaine (PF) (XYLOCAINE) 100 mg/5 mL (2 %) Given 0 9:26 AM EDT 50 mg injection PRN, Starting on Sat05/03/20 at 0926, Until Sat05/03/20 at 1021, Anesthesia Intra-op, Routine ondansetron (ZOFRAN) injection Given 05/03/2020 9:53 AM EDT 4 mg PRN, Starting on Sat05/03/20 at 0953, Until Sat05/03/20 at 1021, Anesthesia Intra-op, Routine PHENYLephrine in NS (PF) (ELBERT-SYNEPHRINE) 0.8 Given 9:55 AM EDT 80 mcg mg/10 mL (80 mcg/mL) multi-dose injection Syrg PRN, Starting on Sat05/03/20 at 0944, Until Sat05/03/20 at 1021, Anesthesia Intra-op, Routine Given 05/03/2020 9:44 AM EDT 80 mcg piperacillin-tazobactam (ZOSYN) 3.375 g New Bag 05/03/2020 9:33 AM EDT 3.375 g vial attach to sodium chloride 0.9% 50 mL Mini-Bag Plus 3.375 g, Intravenous, SATURATION DIVER TO O.R., 1 dose, On Sat05/03/20 at 0900, Administer over 4 Hours, Warning Vesicant/Irritant Medication Do not administer or Y-site with lactated ringers., Day of Surgery (Day of Procedure), Indication for (Active or Suspected): Prophylaxis propofoL (Diprivan) 10 mg/mL bolus injection Given 0 9:59 AM EDT 20 mg (Anesthesia) PRN, Starting on Sat05/03/20 at 0926, Until Sat05/03/20 at 1021, Anesthesia Intra-op Given 05/03/2020 9:26 AM EDT 200 mg rocuronium (ZEMURON) multi-dose injectio n Given 05/03/2020 9:26 AM EDT 5 mg PRN, Starting on Sat05/03/20 at 0926, Until Sat05/03/20 at 1021, Anesthesia Intra-op, Routine succinylcholine chloride (Quelicin) inje ction Given 05/03/2020 9:26 AM EDT 160 mg PRN, Starting on Sat05/03/20 at 0926, Until Sat05/03/20 at 1021, Anesthesia Intra-op, Routine documented in this encounter Care Teams Sales Director Relationship Specialty Start Date End Date Earline Colbert MD PCP - General 09/08/13 [address] [place] [address] documented as of this encounter
--- OUTSIDE RECORDS SUMMARY | 2022-06-07 14:23 | XMS_ITS | Encounter Summary ---
:1970 Author Organization [facility] [place] [address] Care Team Providers Name Role Phone Earline Colbert MD Primary Care Provider Encounter Details Date Type Department Care Team Description 01/05/2020 Orders Only Urology at [facility] Davila, History of UTI [facility] [place] [address] [facility] [phone] UROLOGY DEPT. [place], [place] [address] (Wo rk) Social History Tobacco Use Types Packs/Day Years Used Date Smoking Tobacco: Never Smokeless Tobacco: Never Alcohol Use Standard Drinks/Week Comments No 0 (1 standard drink = 0.6 oz pure alcoho l) Sex Assigned at Date Recorded Not on file documented as of this encounter Plan of Treatment Not on filedocumented as of this encounter Results (ABNORMAL) Urine culture Urine (01/26/2020 12:19 PM EDT) [facility] Method Time Signature Urine Culture 10,000-49,000 cfu/ml mixed m ucosal whitney including Beta Hemolytic Streptococci, NAZ Group B MARY ALICE Note: Culture shows multiple bacterial species suggesting [facility] contamination. If symptoms c ontinue to indicate urinary tract infection, submit HOSPITAL a new specimen. LABORATORY (A) Organism Beta Hemolytic NAZ Streptococci, MARY ALICE Group B (A) [facility] Specimen Anatomical Collection Method Collection Time Receive d Time (Source) Location / / Volume Laterality Urine specimen 01/26/2020 12:19 0 1:20 (specimen) PM EDT PM EDT Resulting Agency Comment Spec In Lab Ev Ngo APRN MICROBIOLOGY - GENERAL ORDER [place] Performing Organization Address City/State/ZIP Code Phon e Number [place] [phone] documented in this encounter Visit Diagnoses Diagnosis History of UTI Personal history of urinary (tract) infe ction documented in this encounter Care Teams Baseball Glove Shaper Relationship Specialty Start Date End Date Earline Colbert MD PCP - General 09/08/13 [address] [place] [address] documented as of this encounter
--- OUTSIDE RECORDS SUMMARY | 2022-06-07 14:23 | XMS_ITS | Encounter Summary ---
:1970 Author Organization [facility] [address] Care Team Providers Name Role Phone Earline Colbert MD Primary Care Provider Encounter Details Date Type Department Care Team Description 04/25/2020 Orders Only [place] [facility] [place] Chamberlain, Lower urinary tract [facility] symptoms (LUTS) [place] [address] [address] [phone] [place], [place] [address] Social History Tobacco Use Types Packs/Day Years Used Date Smoking Tobacco: Never Smokeless Tobacco: Never Alcohol Use Standard Drinks/Week Comments No 0 (1 standard drink = 0.6 oz pure alcoho l) Sex Assigned at Date Recorded Not on file documented as of this encounter Plan of Treatment Not on filedocumented as of this encounter Visit Diagnoses Diagnosis Lower urinary tract symptoms (LUTS) Other symptoms involving urinary system documented in this encounter Care Teams Sports Book Server Relationship Specialty Start Date End Date Earline Colbert MD PCP - General 09/08/13 [address] [place], [place] [address] documented as of this encounter
--- OUTSIDE RECORDS SUMMARY | 2022-06-07 14:23 | XMS_ITS | Encounter Summary ---
:1970 Author Organization [facility] [place] [address] Care Team Providers Name Role Phone Earline Colbert MD Primary Care Provider Encounter Details Date Type Department Care Team Description 05/25/2020 Telephone Urology at [facility] [place] [address] Social History Tobacco Use Types Packs/Day Years Used Date Smoking Tobacco: Never Smokeless Tobacco: Never Alcohol Use Standard Drinks/Week Comments No 0 (1 standard drink = 0.6 oz pure alcoho l) Sex Assigned at Date Recorded Not on file documented as of this encounter Miscellaneous Notes Telephone Encounter - Sim Do LPN - 05/25/2020 2:32 PM EST Called patient to let her know that the prescription was called in. documented in this encounter Plan of Treatment Not on filedocumented as of this encounter Visit Diagnoses Not on filedocumented in this encounter Care Teams Sales And Marketing Professional Relationship Specialty Start Date End Date Earline Colbert MD PCP - General 09/08/13 [address] [place] [address] documented as of this encounter
--- OUTSIDE RECORDS SUMMARY | 2022-06-07 14:23 | XMS_ITS | Encounter Summary ---
:1970 Author Organization [facility] [place] [address] Care Team Providers Name Role Phone Earline Colbert MD Primary Care Provider Encounter Details Date Type Department Care Team Description 02/16/2020 Telephone Urology at [facility] Ev Davila, [facility] [place] [address] [facility] [phone] UROLOGY DEPT. [place], [place] [address] (Wo rk) Social History Tobacco Use Types Packs/Day Years Used Date Smoking Tobacco: Never Smokeless Tobacco: Never Alcohol Use Standard Drinks/Week Comments No 0 (1 standard drink = 0.6 oz pure alcoho l) Sex Assigned at Date Recorded Not on file documented as of this encounter Miscellaneous Notes Telephone Encounter - Ev Davila APRN - 02/16/2020 4:07 PM EDT I talked to pt about her questions. She is having swelling in her hands and feet. She will discuss with PCP. We discussed the NM renal scan. Long history of UTIs. UTIs bother her IC in turn. Wondering about management of her ureter/kidney if it is not functioning and is nidus of her infections. Will have her see Dr. Chamberlain to discuss options, including surgical management to prevent UTIs and then also minimize IC flares. Telephone Encounter - Gildardo Dunbar - 02/16/2020 2:27 PM EDT PHONE: [phone] Pt was told that she could call Ev with questions. She says her feet keep swelling and she wonders what the next step is. documented in this encounter Plan of Treatment Not on filedocumented as of this encounter Visit Diagnoses Not on filedocumented in this encounter Care Teams Automotive Parts Counter Person Relationship Specialty Start Date End Date Earline Colbert MD PCP - General 09/08/13 [address] [place] [address] documented as of this encounter
--- OUTSIDE RECORDS SUMMARY | 2022-06-07 14:23 | XMS_ITS | Encounter Summary ---
:1970 Author Organization [facility] [place] [address] Care Team Providers Name Role Phone Earline Colbert MD Primary Care Provider Encounter Details Date Type Department Care Team Description 05/03/2020 Telephone Urology at [facility] Satinder Darby MD [facility] [place] [address] UROLOGY DEPT [phone] [place] [phone] (Wo rk) Social History Tobacco Use Types Packs/Day Years Used Date Smoking Tobacco: Never Smokeless Tobacco: Never Alcohol Use Standard Drinks/Week Comments No 0 (1 standard drink = 0.6 oz pure alcoho l) Sex Assigned at Date Recorded Not on file documented as of this encounter Miscellaneous Notes Telephone Encounter - Kailyn Bowden RN - 05/03/2020 3:31 PM EDT I returned the patient's call. She states [facility] never received the order for the syringes. I will re-submit it. Telephone Encounter - Gildardo Dunbar - 05/03/2020 2:59 PM EDT PHONE: [phone] Pt was sent home today after surgery with an Rx to lavage her bladder. When she got to the pharmacy,they gave her the water but no syringes to flush it with and the pharmacy said they don't normallysupply them. I will see what the nurses can do to help her. documented in this encounter Plan of Treatment Not on filedocumented as of this encounter Visit Diagnoses Not on filedocumented in this encounter Care Teams Staff Cytotechnologist Relationship Specialty Start Date End Date Earline Colbert MD PCP - General 09/08/13 [address] [place] [address] documented as of this encounter
--- OUTSIDE RECORDS SUMMARY | 2022-06-07 14:23 | XMS_ITS | Encounter Summary ---
:1970 Author Organization [facility] [place] [address] Care Team Providers Name Role Phone Earline [...] Expiration Date Visits Requ ested Visits Authorized [id number] 1 1 Encounter Details Date Type Department Care Team Description 05/03/2020 Hospital Encounter Same Day Program at [facility] urinary tract [place] TamWaltondamián Calles MD symptoms (LUTS) [facility] [address] [place] [id number] [phone] Social History Tobacco Use Types Packs/Day Years Used Date Smoking Tobacco: Never Smokeless Tobacco: Never Alcohol Use Standard Drinks/Week Comments No 0 (1 standard drink = 0.6 oz pure alcoho l) Sex Assigned at Date Recorded Not on file documented as of this encounter Last Filed Vital Signs Vital Sign Reading Time Taken Comments Blood Pressure 111/55 05/03/2020 11:30 AM EDT Pulse 86 05/03/2020 8:33 AM [...] nightly. Blood-Glucose Meter 1 each by 0 [facility].(Non-Drug; Combo Route) route 4 times daily. pentosan [...] as test strip instructed Lancets Misc by [facility].(Non-Drug; 0 Combo Route) route daily as needed. [...] visit on 04/28/[address] Chamberlain. Thai remained on baby ASA. 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 Blood-Glucose Meter Misc 1 each by [facility].(Non-Drug; Combo Route) route 4 times daily. ??? [...] Darby MD - 05/03/2020 9:17 AM EDT [facility] [place]ative Note Patient Name: Libia Burgos : [id number] MR#: [id number] Case Date: 05/03/2020 Surgeon: Surgeon(s) and Role: [...] Signature POC Glucose 190 65 - 199 [facility] mg/dL [facility] Comment: Supplemental ranges: <140 mg/dL before meals <180 mg/dL all other times of the day Specimen Anatomical Collection Method Collection Time Receive d Time (Source) Location / / Volume Laterality Blood specimen 05/03/2020 10:30 0 (specimen) AM EDT 10:30 AM EDT Ele Darby MD POINT OF CARE TEST ORDERABLE S Performing Organization Address City/State/[place] [address] Specimen to Pathology (05/03/2020 9:50 AM EDT) Specimen Anatomical Collection Method Collection Time Receive d Time (Source) Location / / Volume Laterality AP Specimen 05/03/2020 9:50 AM 0 9:50 EDT AM EDT Narrative [facility] - 05/03/2020 9:50 AM EDT Specimen requisition ordered. ??Separate Pathology report to follow Ele Darby MD PATHOLOGY/CYTOLOGY ORDERABLE S Performing Organization Address City/State/[place] [address] Specimen to Pathology (05/03/2020 9:46 AM EDT) Specimen Anatomical Collection Method Collection Time Receive d Time (Source) Location / / Volume Laterality AP Specimen 05/03/2020 9:46 AM 0 9:46 EDT AM EDT Narrative [facility] - 05/03/2020 9:46 AM EDT Specimen requisition ordered. ??Separate Pathology report to follow Ele Darby MD PATHOLOGY/CYTOLOGY ORDERABLE S Performing Organization Address City/[facility]/[place] [address] Surgical Pathology Report (05/03/2020 9:45 AM EDT) Component Value Ref Test Analysis Performed At [facility] Range Method Time Signature Surgical [id number] ? Location: [facility]; [facility]; A [facility] Report The signing pathologist has (i) examined the relevant preparation(s) for the [facility] specimen(s) and (ii) rendered or confirmed [...] dysplasia. Electronically signed by: ??MD Rin, Regino Stoner Verified: ??05/10/2020 ?Pathologist Performed at: ??-[facility] Dept. of [place]ology, [place], [place] ADDITIONAL STUDIES Whole slide scan: senior sales representative slide(s) SPECIMEN(S) SUBMITTED A - [...] Organization Address City/State/[place] [address] (ABNORMAL) POCT Glucose (05/03/2020 8:31 AM EDT) P athologist Signature POC Glucose 201 (H) 65 - 199 [place] mg/dL [facility] Comment: Supplemental ranges: <140 mg/dL before meals <180 mg/dL all other times of the day Specimen Anatomical Collection Method Collection Time Receive d Time (Source) Location / / Volume Laterality Blood specimen 05/03/2020 8:31 AM 020 8:31 (specimen) EDT AM EDT Ele Darby MD POINT OF CARE TEST ORDERABLE S Performing Organization Address City/State/ZIP Code Phon e Number [address] (ABNORMAL) Urine culture Clean Catch Urine (05/03/2020 8:26 AM EDT) Patholo gist Method Time Signature Urine Culture Greater than 100,000 cfu/ml Pseudomonas aeruginosa [place] 10,000-49,000 cfu/ml Escherichia coli MARY ALICE (A) [facility] Organism Pseudomonas [place] aeruginosa (A) [facility] Organism Escherichia [place] coli (A) [facility] Specimen (Source) Anatomical Collection Method Collection [...] Organization Address City/State/[place] [address] documented in this encounter Visit Diagnoses Diagnosis Lower urinary tract symptoms (LUTS) Other symptoms involving urinary system documented in this encounter Administered Medications Inactive [...] Supprettes) 16.2-60 mg per suppository 60 mg 929 (Due) 60 mg, Rectal, ONCE, 1 dose, Sat 0 at 0930, This medication should travel with the patient to the OR. Urology will place during the procedure, Routine piperacillin-tazobactam (ZOSYN) 3.375 g vial attach to sodium chloride 0.9% 50 mL Mini-Bag Plus (COMPLETED) 86 (New B ag - Provider: Mildred Gannon CRNA) 3.375 g, Intravenous, [employer] APPLIANCE TECH TO O.R., 1 dose, Sat05/03/20 at 0900, Administer over 4 Hours, Warning Vesicant/Irritant Medication Do not administer or Y- site with lactated ringers., Day of Surger y (Day of Procedure), Indication for (Active or Suspected): Prop hylaxis piperacillin-tazobactam (ZOSYN) 3.375 g vial attach to sodium chloride 0.9% 50 mL Mini-Bag Plus 1100 (Due) 3.375 g, Intravenous, [employer] APPLIANCE TECH TO O.R., 1 dose, Sat05/03/20 at 1100, [...] injection 1054 (Given - Provider: Deisy Smith, RN)1110 (Given - Provider: Deisy Smith RN) 25-50 mcg, Intravenous, EVERY 5 MIN PRN, Starting e 05/03/20 at 0955, Until 05/03/20 at 1453, [...] Routine documented in this encounter Care Teams Computer Numerical Control Operator Relationship Specialty Start Date End Date Earline Colbert MD PCP - General 09/08/13 [address] [place] [address] documented as of this encounter
--- OUTSIDE RECORDS SUMMARY | 2022-06-07 14:23 | XMS_ITS | Encounter Summary ---
:1970 Author Organization [facility] [place] [address] Care Team Providers Name Role Phone Earline Colbert MD Primary Care Provider Reason for Visit Reason Comments Lower Urinary Tract Symptoms Encounter Details Date Type Department Care Team Description 10/26/2013 Office Visit Urology at [facility] Duaen Norris Lower urinary tract [facility] IIIMD symptoms (LUTS) [facility] (Primary Dx) [place] [address] [place] [address] [phone] Social History Tobacco Use Types Packs/Day Years Used Date Smoking Tobacco: Never Smokeless Tobacco: Never Alcohol Use Standard Drinks/Week Comments No 0 (1 standard drink = 0.6 oz pure alcoho l) Sex Assigned at Date Recorded Not on file documented as of this encounter Last Filed Vital Signs Vital Sign Reading Time Taken Comments Blood Pressure 136/93 10/26/2013 9:46 AM EDT Pulse 93 10/26/2013 9:46 AM EDT Temperature 36.5 ??C (97.7 ??F) 10/26/2013 9:46 AM EDT Respiratory Rate 16 10/26/2013 9:46 AM EDT Oxygen Saturation - - Inhaled Oxygen Concentration - - Weight 152.9 kg (337 lb) 10/26/2013 9:46 AM EDT Height 172.7 cm (5' 8) 10/26/2013 9:46 AM EDT Body Mass Index 51.24 10/26/2013 9:46 AM EDT documented in this encounter Progress Notes Duane Norris III, MD - 10/26/2013 10:44 AM EDT Ms. Vaguhan is a 43-year-old woman who returns for evaluation 2 weeks following bladder biopsy. This revealed severe acute and chronic inflammation with ulcerative changes. Patient has recently completed a course of fluconazole for her yeast infection. She states that since treatment for her infection and instituting [place] some of her irritative symptoms have improved. She is now able to hold her bladder at least 2 hours a day and is currently getting up two to three times at night. Her right lower quadrant discomfort which she associates with a full bladder is less intense. She and her mother state that it is in the 4/10 range down from 8. 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 We will obtain a straight catheter urine specimen today for a culture and sensitivity. Assuming that is sterile I believe that she would benefit from a consult with Ev Ngo to discuss approaches to IC. 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 The patient and her mother understand the reasons for this recommendation and agree to proceed. documented in this encounter Plan of Treatment Not on filedocumented as of this encounter Procedures Procedure Name Priority Date/Time Associated Diagnosis Comme nts URINE CULTURE Routine 10/26/2013 12:14 PM Lower urinary tract Results for this EDT symptoms (LUTS) procedure ar e in the results section . documented in this encounter Results Urine culture Clean Catch Urine (10/26/2013 12:14 PM EDT) [facility] Method Time Signature Urine Culture CERNER ? Patient Name: RENEE VAUGHAN ?Ordered By: DUAEN NORRIS III [facility] ? MR#: [id number] ?LOC: ??5B ? /Sex: ??1970 (43 years), ? Female ? PROCEDURE: Urine Culture ?SOURCE: U CC ? COLLECTED: 10/26/2013 12:14 ? STARTED: 10/26/2013 13:54 ? FINAL REPORT ? Final Report ? Verified:10/27/2013 07:51 ? No growth (Less than 1,000 cfu/ml). ? Specimen (Source) Anatomical Collection Method Collection Time Re ceived Time Location / / Volume Laterality Urine specimen 10/26/2013 12:14 4 1:54 obtained by clean PM EDT PM EDT catch procedure (specimen) Resulting Agency Comment Spec In Lab Duane Norris III, MD MICROBIOLOGY - GENERAL ORDER [place] Performing Organization Address City/State/[place] [address] [facility] documented in this encounter Visit Diagnoses Diagnosis Lower urinary tract symptoms (LUTS) - Pr imary Other symptoms involving urinary system documented in this encounter Care Teams Advertiser Relationship Specialty Start Date End Date Earline Colbert MD PCP - General 09/08/13 [address] [place] [address] documented as of this encounter
--- OUTSIDE RECORDS SUMMARY | 2022-06-07 14:23 | XMS_ITS | Encounter Summary ---
:1970 [place] [address] Care Team Providers Name Role Phone Earline Colbert MD Primary Care Provider Encounter Details Date Type Department Care Team Description 04/24/2020 Orders Only Urology at [facility] Patricia Chamberlain, Lower urinary tract [facility] symptoms ([place]) [place] [address] [address] [phone] [place], [place] [address] Social History Tobacco Use Types Packs/Day Years Used Date Smoking Tobacco: Never Smokeless Tobacco: Never Alcohol Use Standard Drinks/Week Comments No 0 (1 standard drink = 0.6 oz pure alcoho l) Sex Assigned at Date Recorded Not on file documented as of this encounter Plan of Treatment Not on filedocumented as of this encounter Results (ABNORMAL) Urine culture Clean Catch Urine (05/03/2020 8:26 AM EDT) [facility] Method Time Signature Urine Culture Greater than 100,000 cfu/ml Pseudomonas aeruginosa NAZ 10,000-49,000 cfu/ml Escherichia coli [place] () [facility] Organism Pseudomonas NAZ aeruginosa (A) [facility] Organism Escherichia NAZ coli (A) [facility] Specimen (Source) Anatomical Collection Method Collection [...] Organization Address City/State/[place] [address] documented in this encounter Visit Diagnoses Diagnosis Lower urinary tract symptoms (LUTS) Other symptoms involving urinary system documented in this encounter Care Teams Waxing Machine Operator Relationship Specialty Start Date End Date Earline Colbert MD PCP - General 09/08/13 [address] [place] [address] documented as of this encounter
--- OUTSIDE RECORDS SUMMARY | 2022-06-07 14:24 | XMS_ITS | Encounter Summary ---
:1970 Author Organization [facility] Address [address] [place] [address] Care Team Providers Name Role Phone Kingsley Colbert MD Primary Care Provider Reason for Referral Consultation (Routine) - Closed Specialty Diagnoses / Procedures Referred By Contact Refer red To Contact Urology Diagnoses Gross hematuria Lisandro Shaw MD [facility] Urology [facility] [address] OBSTETRICS & [place] [address] [place] [address] Referral ID Status Reason Start Date Expiration Date Visits V isits Requested Authorized [id number] Closed Consult, 10/01/2013 03/30/2014 1 1 Test & Treat Reason for Visit Reason Comments Cystitis Ovarian Cyst Encounter Details Date Type Department Care Team Description 10/01/2013 Office Visit Obstetrics and Lisandro Shaw, Cystitis, chronic (Primary Dx); Gynecology at [facility] Simple ovarian cyst; [facility] Pel chikis pain in female; Drive Screening for malignant neoplasm of cerv ix; [place], [place] OBSTETRICS & Gross hematuria [id number] GYNECOLOGY [phone] [place], [place] [address] Social History Tobacco Use Types Packs/Day Years Used Date Smoking Tobacco: Never Smokeless Tobacco: Never Sex Assigned at Date Recorded Not on file documented as of this encounter Last Filed Vital Signs Vital Sign Reading Time Taken Comments Blood Pressure 110/66 10/01/2013 10:04 AM EDT Pulse 64 10/01/2013 10:04 AM EDT Temperature - - Respiratory Rate - - Oxygen Saturation - - Inhaled Oxygen Concentration - - Weight 155.1 kg (342 lb) 10/01/2013 10:04 AM EDT Height 168.9 cm (5' 6.5) 10/01/2013 10:04 AM EDT Body Mass Index 54.37 10/01/2013 10:04 AM EDT documented in this encounter Patient Instructions Patient InstructionsStroLisandro flor MD - 10/01/2013 12:47 PM EDT ?? We have made an appointment for you to see Dr. Cooper, in Urology, at 1:30 pm and plan to look in the bladder with a Cystoscope. ?? We will set up a pelvic ultrasound to check the ovarian cyst as well. documented in this encounter Progress Notes Lisandro Shaw MD - 10/01/2013 11:24 AM EDT Female Pelvic Medicine and Reconstructive Surgery @ [facility] Patient Name: Libia Vaughan Patient Primary Care Provider: KINGSLEY COLBERT MD Referring Provider: Kingsley Colbert Patient Active Problem List Diagnosis Code ??? Diabetes mellitus 250.00 ??? Hypertension 401.9 ??? Nephrolithiasis 592.0 ??? Simple ovarian cyst 620.2 ??? Morbid obesity with BMI of 50.0-59.9, adult 278.01, V85.43 ??? Pelvic pain in female 625.9 ??? Gross hematuria 599.71 Chief Complaint: Pelvic pain, urinary urgency History of Present Illness: Ms. Vaughan is a 43 y.o. old para 3 woman, seen at the kind request of Dr. Kingsley Colbert. She presents for evaluation and assessment of pelvic pain, urinary urgency of 7- 8 months' duration. She had a UTI, culture proven, last January. She was treated with antibiotics and had improvement in hersymptoms. She then started having pain and urinary urgency similar to her symptoms in January and has been treated with antibiotics several times with negative cultures. Per Dr. Colbert's notes, her cultures have shown the following: Date Organism Growth Sensitivity Testing 01/20/13 E. Coli 10-50K Bailey-sensitive, treated with 7 days of ciprofloxacin, 500 mg BID 02/20/13 n/a n/a Empiric treatment with 7 days of ciprofloxacin, 500 mg BID 03/20/13 Mixed Gram + 10-50K Empiric treatment with 3 days ciprofloxacin, 5 days Bactrim DS BID 04/14/13 Mixed gram + 10-50K Empiric treatment with 5 days Bactrim DS BID 06/29/13 Mixed gram + 100K Empiric treatment with ciprofloxacin 500 mg BID X 7 days Her urinary urgency and discomfort increases the week prior to her menses. She also has increased pain in the suprapubic area and across both lower sides. The pain has gotten bad enough that she is nowtaking oxycodone, but does not like the oxycodone due to the way it makes her feel, drowsy, disoriented. Sometimes, she notes shooting pain towards the urethra with defecation as well. She denies flankpain or fevers. She has noted intermittent blood in the urine but is not certain at times whether ornot this was from her menses. Her menses are every 28 days, 7 day duration, heavy flow. She did have imaging in January and again in July with CT scan. She has two kidney stones, one in the left renal pelvis, but no hydronephrosis or hydoureter. Her July CT scan was positive for a right ovarian cyst, ~5 cm diameter as well. A pelvic US the same day confirmed a cyst, 4 cm. The EM stripe was 4 mm. I have reviewed these images. She is s/p lithotripsy for a renal stone in the past. Pertinent findings to emphasize are: myD-H Urogyn 10/01/2013 ICSI - Symptom Index 12 ICS - Problem Index 12 FSFI - Arousal 0 FSFI - Desire 1.2 FSFI - Lubrication 0 FSFI - Orgasm 0 FSFI - Pain 0 FSFI - Satisfaction Incomplete FSFI - Total Scores Incomplete Briana - Sensory Dimensions Incomplete Briana - Affective Dimensions 9 Briana - VAS 50 Briana - Present Pain Intensity 2 Briana - Total Pain Score Incomplete VR12 - Physical Component Summary 22.41 VR12 - Mental Component Summary 31.98 Goals for visit: 1. Decrease pain Bladder irritants: Caffeine intake: Not reviewed Cigarette smoking (packs, time, if quit when): no Alcohol: no Pelvic Organ Prolapse (POP) Any personally see or feel a vaginal bulge? no What precipitates prolapse or symptoms of prolapse? Sexual Function Active?: No, Gynecologic/Obstetric History: Last PAP smear: 1995 s/p tubal ligation Menses: Every 28 days, 7 day duration, heavy Past Medical History Diagnosis Date ??? Diabetes mellitus ??? Hypertension ??? Nephrolithiasis Past Surgical History Procedure Date ??? Tubal ligation ??? Tonsillectomy ??? Lithotripsy Outpatient Prescriptions Marked as Taking for the 10/01/13 encounter (Office Visit) with Lisandro Shaw MD Medication Sig Dispense Refill ??? oxyCODONE (ROXICODONE) 5 mg immediate release tablet Take 5 mg by mouth every 4 hours as needed. ??? phenazopyridine (PYRIDIUM) 200 mg tablet Take 200 mg by mouth 3 times daily as needed. ??? naproxen sodium (ANAPROX) 550 mg tablet Take 550 mg by mouth 2 times daily (with meals). ??? citalopram (CELEXA) 20 mg tablet Take 20 mg by mouth daily. ??? metFORMIN (GLUCOPHAGE) 850 mg tablet Take 850 mg by mouth 2 times daily (with meals). ??? lisinopril (PRINIVIL;ZESTRIL) 10 mg tablet Take 10 mg by mouth daily. ??? Blood Sugar Diagnostic (ONE TOUCH ULTRA TEST) test strip by Other route daily as needed. Use as instructed ??? Lancets Misc by Misc.(Non-Drug; Combo Route) route daily as needed. Allergies Allergen Reactions ??? Amitriptyline Anxiety Delusions and panic attacks ??? Compazine (Prochlorperazine) Anxiety Feeling like bugs crawling on me History Social History ??? Marital Status: Spouse Name: N/A Number of Children: N/A ??? Years of Education: N/A Occupational History ??? Not on file. Social History Main Topics ??? Smoking status: Never Smoker ??? Smokeless tobacco: Never Used ??? Alcohol Use: Not on file ??? Drug Use: Not on file ??? Sexually Active: Not on file Other Topics Concern ??? 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 Coronary Artery Disease Maternal Grandfather ??? Coronary Artery Disease Maternal Uncle ??? Ovarian Cancer Maternal Grandmother Family history: denies history of gynecologic cancer ROS: Review of all other systems negative except for those mentioned above or indicated below: System Symptom Presence Constitutional Weight Loss 47# Weight gain Fatigue Eyes Vision changes ENT/Mouth Sinus problems Mouth sores Cardiovascular Chest pain LOYA Leg swelling Heart palpitations Respiratory Wheezing Hemoptysis SOB Chronic cough GI Nausea/vomiting Abdominal pain x Musculoskeletal Muscle weakness Skin/breast Pain in breast Discharge Masses Rash/ulcer Neurological Dizziness Numbness Trouble Walking Psychiatric Depression x Anxiety Endocrine Abnormal thirst Hot flashes Hematologic Frequent bruising no Blood clots (DVT / PE) no Prior problems w/ anesthesia none Outside medical records reviewed: I reviewed office notes from Dr. Colbert and the patient brought her outside images on a CD. Data reviewed (images/urodynamic studies): A bladder scan was performed to rule out urinary retention. A urinalysis was sent to rule out infection. Her images were reviewed. OBJECTIVE: Bladder scan (to exclude urinary retention): 180 ml Urine Dip (to rule out infection): not done; grossly bloody and pyridium, sent for microscopic evaluation. PROCEDURE NOTE: Straight catheterization Straight catheterization was performed after verbal consent. The urethra was first prepped with Betadine and a 14 Fr [place] female catheter passed. PVR was 25 mL, grossly bloody and with orange from pyridium. Blood pressure 110/66, pulse 64, height 168.9 cm (5' 6.5), weight 155.13 kg (342 lb), last menstrual period 09/10/2013. General: overweight female, pleasant mood, normal speech Skin: some excoriations over arms Respiratory: clear to auscultation bilaterally Neuro: no paraspinous tenderness; saddle sensory function (S2-4) intact in the pelvic area to touch Cardiac: regular rate and rhythm, no appreciated murmurs Gastrointestinal: Obese, limited exam due to obesity; no appreciablee masses/organomegaly, soft; tender in the suprapubic area, no appreciable hernia Musculoskeletal: levator ani tone (0-5): 3, levator ani contraction (0-5): 3, no levator tenderness Pelvic: External Genitalia: Vulva, Emporium's and Bartholin glands normal, urethra with mild tenderness, no mass Vagina: Anterior vaginal wall tender to palpation. Cervix: normal Bimanual (uterus/adnexa): limited by body habitus; no appreciable masses. Uterus is mobile. Tender to palpation. Rectovaginal: Deferred Impression: Ms. Vaughan is a .43 y.o. woman with: ?? Pelvic pain, suprapubic area. ?? Cyclical urinary urgency and pain. ?? Gross hematuria, intermittently. ?? Differential diagnosis for above includes endometriosis, interstitial cystitis, acute cystitis despite negative cultures, bladder stone, polyp or mass. ?? Ovarian cyst, right, simple, probably follicular on July imaging. Recommendations: Based on the patients expressed goals for management I have recommended the following: ?? Cath urine obtained, sent for microscopic urinalysis and culture. ?? Set up cystoscopy and evaluation with urology. I spoke with Dr. Kohli and they can add her in today. ?? Repeat pelvic ultrasound to assess cyst; will try to set up for later today. ?? If above evaluation is negative, consider empiric treatment with Lupron. I would start injection at start of next cycle. I spent 65 minutes total with the patient, with 35 minutes of the time spent [id number] in discussing her diagnosis and reviewing options for treatment. LISANDRO SHAW MD Division of Female Pelvic Medicine/Reconstructive Surgery CC: MD Giovany HENNESSY MD documented in this encounter Plan of Treatment Scheduled Referrals Name Type Priority Associated Diagnoses Order S chedule Referral to Outpatient Referral Routine Gross hematuria Order ed: Urology 10/01/2013 documented as of this encounter Procedures Procedure Name Priority Date/Time Associated Comments Diagnosis URINALYSIS WITH REFLEX Routine 10/01/2013 12:21 Cystitis , chronic Results for this CULTURE PM EDT Gross hematuria procedure ar e in the results section. CYTOPATHOLOGY Routine 10/01/2013 12:05 Screening for Results f or this GYNECOLOGICAL PM EDT malignant neoplasm procedur e are in of cervix the results section. LINES TENDER MOLECULAR GENETICS Routine 10/01/2013 12:04 R esults for this REPORT PM EDT procedure are i n the results section. LINES TENDER CYTOLOGY FINAL Routine 10/01/2013 12:04 Resul ts for this REPORT PM EDT procedure are i n the results section. URINE CULTURE Routine 10/01/2013 12:04 Cystitis, chron ic Results for this PM EDT Gross hematuria procedure ar e in the results section. BLADDER SCANNER Routine 10/01/2013 Cystitis, chronic Results for this procedure are i n the results section. documented in this encounter Results US Transvaginal non OB (10/01/2013 3:49 PM EDT) Anatomical Region Laterality Modality Ultrasound Specimen (Source) Anatomical Collection Method Collection Time Re ceived Time Location / / Volume Laterality 10/01/2013 3:49 PM EDT Narrative 10/01/2013 3:56 PM EDT ?Gynecological Report ? (Signed Final 10/01/2013 03 :54 pm) Patient Info ID: ? [id number] ? : [birth year] (43 yrs) Name: ? LIBIA VAUGHAN ?Visit Date: 10/01/2013 03:46 pm Performed By Performed By: ?Crystal Ramirez RDMS Attending: ? Hugh DUGGAN, Kodak Tejeda Referred By: ? LISANDRO SHAW MD Service(s) Provided UTV - Ultrasound - Transvaginal - [phone] ? [id number] Indications pelvic pain, history right ovarian cyst ; History of: Tubes tied ------- History ------- Age: ?? 43 ------ Uterus ------ Uterus: ? Visualized Position: ?? Anteverted Size (cm) ?L: ??9.33 ?W: ?? 5.13 ? H: ??4.78 Vol (ml): ?119.8 Endometrium Endometrium: ?Normal appea efe Thickness(mm): ?11.12 Right Ovary Status: ?? Visualized Size (cm) ?L: ??3.8 ? W: ?? 3.13 ? H: ??2.55 Vol (ml): ?15.9 Morphology: ?Normal appearance Left Ovary Status: ?? Not Visualized Impression ??Ultrasound - Transvaginal - Summary The uterus is anteverted and the adnexa are visualized. ??Multiparous uterus withou t fibroids. Left ovary not visualized. RIght ovary normal. The endometrial echo measures 11 mm. This study was performed transvaginally . CONC: Normal pelvic US except left ovar y not seen, exam discontinued due to pt discomfort. I ??viewed the images and agree with cristiana mancera above interpretation Thank you for allowing us to participat e in the care of LIBIA VAUGHAN. Please do not hesitate to call if you have any questions. ? Chauncey Salomon Electronically Signed Final Report ?? 03:54 pm Procedure Note Kodak Reese MD - 10/01/2013Formatt ing of this note might be different from the original. Gynecological Report (Signed Final 10/01/2013 03:54 pm) Patient Info ID: [id number] : [birth year] (43 yrs ) Name: LIBIA VAUGHAN Visit Date: 2013 03:46 pm Performed By Performed By: Crystal Ramirez RDMS Attending: Kodak Reese MD Referred By: LISANDRO SHAW MD Service(s) Provided UTV - Ultrasound - Transvaginal - [phone] [id number] Indications pelvic pain, history right ovarian cyst ; History of: Tubes tied ------- History ------- Age: 43 ------ Uterus ------ Uterus: Visualized Position: Anteverted Size (cm) L: 9.33 W: 5.13 H: 4.78 Vol (ml): 119.8 Endometrium Endometrium: Normal appearance Thickness(mm): 11.12 Right Ovary Status: Visualized Size (cm) L: 3.8 W: 3.13 H: 2.55 Vol (ml): 15.9 Morphology: Normal appearance Left Ovary Status: Not Visualized Impression Ultrasound - Transvaginal - Summary The uterus is anteverted and the adnexa are visualized. Multiparous uterus without fibroids. Left ovary not visualized. RIght ovary normal. The endometrial echo measures 11 mm. This study was performed transvaginally . CONC: Normal pelvic US except left ovar y not seen, exam discontinued due to pt discomfort. I viewed the images and agree with the above interpretation Thank you for allowing us to participat e in the care of LIBIA AVUGHAN. Please do not hesitate to call if you have any questions. Kodak Reese MD Electronically Signed Final Report 10/01 03:54 pm Lisandro Shaw MD IMG US PELVIC ORDERABLES (ABNORMAL) Urinalysis with microscopic (10/01/2013 12:21 PM EDT) [facility] Method Time Signature Glucose UA Trace (A) Negative CERNER mg/dL MILLENNIUM Protein UA >600 (A) Neg mg/dL CERNER MILLENNIUM Bilirubin UA Moderate (A) Negative CERNER mg/dL MILLENNIUM Comment: Clinical correlation required for positi ve Urine Bilirubin results as false positive may occur with some drugs and d rug related products. If a false positive is suspected a serum total bili serrano should be considered if clinically indicated. Urobilinogen UA 4.0 (A) Normal mg/dL CERNER MILL ENNIUM pH UA 6.0 5.0 - 8.0 CERNER MILLENNIUM Blood UA Large (A) Neg CERNER MILLENNIUM Ketones UA Negative mg/dL CERNER MILLENNIUM Nitrite UA Positive CERNER MILLENNIUM Leukocytes UA Large (A) Neg CERNER MILLENNIU M Appearance UA Cloudy (A) Clear CERNER MILLENNI UM Spec [place] UA Not Perf 1.002 - 1.030 CERNER MIL LENNIUM Color UA Dark Brown Yellow CERNER MILLENNIUM RBC UA >182 (H) 0 - 4 /HPF CERNER MILLENNIUM WBC UA >182 (H) 0 - 5 /HPF CERNER MILLENNIUM WBCs Clumping Many /HPF CERNER MILLENNIU M Bacteria UA Many /HPF CERNER MILLENNIUM Specimen Anatomical Collection Method Collection Time Receive d Time (Source) Location / / Volume Laterality Urine specimen URINE SPECIMEN 10/01/2013 12:21 014 (specimen) OBTAINED BY CLEAN PM EDT 12:21 PM E DT CATCH PROCEDURE / Unknown Resulting Agency Comment Spec In Lab Lisandro Shaw MD URINE ORDERABLES Performing Organization Address City/[facility]/ZIP Code Phon e Number [address] [facility] Cytopathology Gynecological (10/01/2013 12:05 PM EDT) Specimen Anatomical Collection Method Collection Time Receive d Time (Source) Location / / Volume Laterality AP Specimen 10/01/2013 12:05 10/01/2013 PM EDT 12:05 PM EDT [facility]ative [facility] - 10/01/2013 12:05 PM EDT Specimen requisition ordered. ??Separate Pathology report to follow Lisandro Shaw MD PATHOLOGY/CYTOLOGY ORDERABLE S Performing Organization Address [facility] Phon e Number [address] [facility] Regional Sales Associate Cytology Final Report (10/01/2013 12:04 PM EDT) Component Value Ref Test Analysis Performed At [facility] Range Method Time Signature Regional Sales Associate Cytology CERNER Final Report ? [facility] ? Provider: ?? LISANDRO SHAW ? Pt. Name: ?? LIBIA VAUGHAN ? Acc #: ?[id number] ?Pt. MRN: ?[id number] ? Col Date: ?? 4 ? /Sex: ?1970,(43 years),Female ? Rec Date: ?? 10/01/2013 ? LOC: ?5L ? CYTOPATHOLOGY: ??LINES TENDER ? ---Adequacy--- ? Specimen submitted is satisfactory. ? Endocervical component present. ? ---Cytopathologic Diagnosis--- ? Infection and/or Reactive Repair Process. ? Note: ??Reactive changes are present in the epithel ial cells (benign ? cellular changes). ?? This Pap test is negative for intraepithelial lesion ? or malignancy. (NILM) ? 10/07/13 ?? Screened by: ??SLA ??EJG ? 10/08/13 ?? Verified by: ??Leesa DUGGAN, Avtar Escobar opathologist ? ---Comment--- ? Please also see concurrent HPV test result. ? ---Clinical Information--- ? HPV Option: ? Concurrent HPV ? Preparation: ?Liquid Based Pap ? Specimen Source: ?Cervical Endocervical LBP ? LMP: ?09/10/2013 ? Hormones?: ?No ? Hysterectomy?: ?No ?: ?No ?: ?No ? I.U.D.?: ?No ? Pelvic Radiation: ? No ? Prior LINES TENDER Therapy?: ? No ? Hist Abnl Pap/Biopsy?: ??No ? Hist of HPV Vaccine?: ?? No ? Hist of Smoking?: ? No ? Hist of MANGO exposure?: ??No ? Clinical Data, Significant Therapy and Clinical Impre ssion: ? This Pap Test has bee n evaluated with the assistance of the ThinPrep Pap ? Test Imaging System. ? Note: ? [facility] ? Provider: ?? LISANDRO SHAW ? Pt. Name: ?? LIBIA VAUGHAN ? Acc #: ?[id number] ?Pt. MRN: ?[id number] ? Col Date: ?? 4 ? /Sex: ?1970,(43 years),Female ? Rec Date: ?? 10/01/2013 ? LOC: ?5L ? CYTOPATHOLOGY: ??LINES TENDER ? The Pap test is a screening test for cervical c ancer with an inherent ? false-negative rate dependent upon several variables. ??For further ? information please contact the [facility] Laboratory. ? Reference: ??Rosemarie alvarez CS. ??Gis Manager of Pap Smear Results. ??In: ? Mariaelena BS, Jose HH, ed. ??The Pap Smear. ??[place]: ??Christian, 2002: ? 71-77. Specimen (Source) Anatomical Collection Method Collection Time Re ceived Time Location / / Volume Laterality 10/01/2013 12:04 PM EDT Lisandro Shaw MD PATHOLOGY/CYTOLOGY ORDERABLE S Performing Organization Address City/State/[place] [address] [facility] LINES TENDER Molecular Genetics Report (10/01/2013 12:04 PM EDT) [facility] gist Method Time Signature LINES TENDER Molecular CERNER Genetics ? [facility] Report ? Provider: ?? LISANDRO SHAW ? Pt. Name: ?? LIBIA VAUGHAN ? Acc #: ?[id number] ?Pt. MRN: ?[id number] ? Col Date: ?? 4 ? /Sex: ?1970,(43 years),Female ? Rec Date: ?? 10/01/2013 ? LOC: ?5L ? MOLECULAR GENETIC STUDIES ? ---REPORT OF DNA ANALYSIS--- ? Anjali Hugo?? HPV test ? NEGATIVE for high-risk HPV *. ? It is recommended shay t patients with ASCUS cytology and a negative test for ? high-risk HPV undergo further evaluation according to current practice ? guidelines. ??* Testi ng negative for high risk HPV means that the specimen ? is negative for the f ollowing 14 types tested: ??types 16, 18, 31, 33, 35, ? 39, 45, 51, 52, 56, 5 8, 59, 66, and 68. ??The test is not intended to detect ? low risk HPV types. ? Specimen: HPV Testing - Cytology Liquid Based Prep ? Reviewed by: ?? Bernadine Valdes CT(ASCP) ? A ? CONNOR Cerv-Endocerv LBP ? B ? HPVDO Do HPV Testing ? _ ? Verified date: ??10/07/13 ??DMG ? Verified by: ?Lab Review, Molecular Genetics ? (Electronic Signature) Specimen (Source) Anatomical Collection Method Collection Time Re ceived Time Location / / Volume Laterality 10/01/2013 12:04 PM EDT Lisandro Shaw MD PATHOLOGY/CYTOLOGY ORDERABLE S Performing Organization Address City/State/ZIP Code Phon e Number [place] [phone] [facility] Urine culture Straight Catheter Urine (10/01/2013 12:04 PM EDT) [facility] gist Method Time Signature [facility]rine [facility] ? Patient Name: ALEXUSLIBIA Zara ?Ordered By : LISANDRO SHAW ? MR#: [id number] ?LOC: ??5L ? /Sex: ??1970 (43 years), ? Female ? PROCEDURE: Urine Culture ?SOURCE: U SCath ? COLLECTED: 10/01/2013 12:04 ?FREE TEXT SOURCE: Pt is currently taking pyridium. ? STARTED: 10/01/2013 13:22 ? FINAL REPORT ? Final Report ? Verified:10/03/2013 10:40 ? 1,000-9,000 cfu/ml Mary albicans ? PRELIMINARY REPORT ? Preliminary Report ? Verified:10/02/2013 10:20 ? 1,000-9,000 cfu/ml Mary albicans ? Specimen Anatomical Collection Method Collection Time Receive d Time (Source) Location / / Volume Laterality Urine specimen 10/01/2013 12:04 4 1:22 obtained via PM EDT PM EDT straight catheter (specimen) Comment: PT IS CURRENTLY TAKING PYRIDIUM . Resulting Agency Comment Spec In Lab Lisandro Shaw MD MICROBIOLOGY - GENERAL ORDER KINGSLEY Performing Organization Address City/State/[place] [address] CHAZ TRAN.SLENNIUM Bladder Scanner (10/01/2013) P athologist Signature Bladder Scan 180 mL (mL) Lisandro Shaw MD UROLOGY ORDERABLES documented in this encounter Visit Diagnoses Diagnosis Cystitis, chronic - Primary Other chronic cystitis Simple ovarian cyst Other and unspecified ovarian cyst Pelvic pain in female Unspecified symptom associated with fema le genital organs Screening for malignant neoplasm of cerv ix Screening for malignant neoplasm of the cervix Gross hematuria Simple ovarian cyst Other and unspecified ovarian cyst Pelvic pain in female Unspecified symptom associated with fema le genital organs documented in this encounter Care Teams Pharmaceutical Officer Relationship Specialty Start Date End Date Kingsley Colbert MD PCP - General 09/08/13 [address] [place] [address] documented as of this encounter
--- OUTSIDE RECORDS SUMMARY | 2022-06-07 14:24 | XMS_ITS | Encounter Summary ---
:1970 Author Organization [facility] [place] [address] Care Team Providers Name Role Phone Earline Colbert MD Primary Care Provider Encounter Details Date Type Department Care Team Description 10/01/2013 Orders Only Urology at [facility] Giovany Kohli, Hematuria, unspecified [facility] [place] [address] UROLOGY [place], [place] [address] Social History Tobacco Use Types Packs/Day Years Used Date Smoking Tobacco: Never Smokeless Tobacco: Never Sex Assigned at Date Recorded Not on file documented as of this encounter Plan of Treatment Not on filedocumented as of this encounter Visit Diagnoses Diagnosis Hematuria, unspecified documented in this encounter Care Teams Systems Security Consultant Relationship Specialty Start Date End Date Earline oClbert MD PCP - General 09/08/13 [address] [place] [address] documented as of this encounter
--- OUTSIDE RECORDS SUMMARY | 2022-06-07 14:24 | XMS_ITS | Encounter Summary ---
:1970 Author Organization [facility] [place] [address] Care Team Providers Name Role Phone Earline Colbert MD Primary Care Provider Encounter Details Date Type Department Care Team Description 08/11/2013 Orders Only Radiology Duane Woodard MD [address] [address] [place] [address] [phone] (Wo rk) Social History Tobacco Use Types Packs/Day Years Used Date Smoking Tobacco: Never Assessed Sex Assigned at Date Recorded Not on file documented as of this encounter Plan of Treatment Not on filedocumented as of this encounter Procedures Procedure Name Priority Date/Time Associated Diagnosis Comme nts FILM LIBRARY Routine 08/11/2013 12:53 PM Results for this STORAGE ONLY CT EST procedure ar e in ABDOMEN AND PELVIS the resul ts section. documented in this encounter Results Film Library- Storage only CT abdomen & pelvis (08/11/2013 12:53 PM EST) Anatomical Region Laterality Modality Abdomen, Pelvis Other Specimen (Source) Anatomical Collection Method Collection Time Re ceived Time Location / / Volume Laterality 08/11/2013 12:53 PM EST Narrative 10/01/2013 1:04 PM EDT This is a Non-reportable exam Procedure Note 10/01/2013 This is a Non-reportable exam Duane Norris MD IMG FILM LIBRARY ORDERABLES documented in this encounter Visit Diagnoses Not on filedocumented in this encounter Care Teams Clinical Data Specialist Relationship Specialty Start Date End Date Earline Colbert MD PCP - General 09/08/13 [address] [place] [address] documented as of this encounter
--- OUTSIDE RECORDS SUMMARY | 2022-06-07 14:24 | XMS_ITS | Encounter Summary ---
:1970 [place] [address] Care Team Providers Name Role Phone Earline Colbert MD Primary Care Provider Encounter Details Date Type Department Care Team Description 10/08/2013 Hospital Encounter Same Day Program at [facility] [place] [address] [place] [address] [phone] Social History Tobacco Use Types Packs/Day Years Used Date Smoking Tobacco: Never Smokeless Tobacco: Never Alcohol Use Standard Drinks/Week Comments No 0 (1 standard drink = 0.6 oz pure alcoho l) Sex Assigned at Date Recorded Not on file documented as of this encounter Last Filed Vital Signs Vital Sign Reading Time Taken Comments Blood Pressure 122/48 10/08/2013 2:16 PM EDT Pulse 79 10/08/2013 2:23 PM EDT Temperature 36.2 ??C (97.2 ??F) 10/08/2013 1:58 PM EDT Respiratory Rate 16 10/08/2013 2:23 PM EDT Oxygen Saturation 100% 10/08/2013 2:23 PM EDT Inhaled Oxygen Concentration - - Weight [...] to urinate please call our office at [phone] 5PM or [phone] after hours. Wound Care: None needed Activity: As tolerated by your comfort level. Call Doctor for: Please call if you have copious blood in your urine, severe back or side pain, painnot controlled by pain medications, persistent nausea and vomiting, or for any fevers greater than 101.3 F. The number for questions is [phone] before 5 PM weekdays and [phone] after 5 PM and weekends. Pain Medication: [...] with your primarycare doctor. Follow-up: Please call [phone] (clinic number for appointments) to confirm date [...] as test strip instructed Lancets Misc by Mis.(Non-Drug; 0 Combo Route) route daily as needed. [...] states that she understands. IV out per [facility] Policy. Patient states that she is ready [...] Leonard MD - 10/08/2013 2:08 PM EDT [facility] Operative Note Patient Name: Libia Vaughan : [id number] MR#: [id number] Case Date: 10/08/2013 Surgeon: Surgeon(s) and Role: [...] 30-degree lens was then reinserted with the Lyubov biopsy forceps, and two biopsies were taken from the anterior bladder wall. These were then fulgurated with the Bugbee cautery. The bladder was then emptied and an 18-Nauruan Bartlett catheter inserted. The patient was subsequently awoken and returned to the PACU in stable condition. Brief Op Note - Jann Leonard MD - 10/08/2013 1:54 PM EDT Brief Operative Note Patient Name: Libia Vaughan : [id number] MR#: [id number] Case Date: 10/08/2013 Surgeon: Surgeon(s) and Role: [...] Surgical Pathology Report (10/08/2013 2:01 PM EDT) [facility] Method Time Signature Surgical CERNER Pathology ? [facility] Report ? Provider: ?? ANGELICA NORRIS III Pt. Name: ?? RENEE VAUGHAN ? Acc #: ?[id number] ?Pt. MRN: ?[id number] ? Col Date: ?? 4 ? /Sex: [...] Organization Address City/State/[place] [address] [facility] Specimen to Pathology (surgical or derm) (10/08/2013 1:33 PM EDT) Specimen Anatomical Collection Method Collection Time Receive d Time (Source) Location / / Volume Laterality AP Specimen 10/08/2013 1:33 PM 4 1:33 EDT PM EDT Narrative [facility] - 10/08/2013 1:33 PM E DT Specimen requisition ordered. ??Separate Pathology report to follow Angelica Norris III, MD PATHOLOGY/CYTOLOGY ORDERABLE S Performing Organization Address City/State/ZIP Code Phon e Number [place] [id number] [facility] (ABNORMAL) Hemoglobin A1c (10/08/2013 12:50 PM EDT) Analysis Performed At Patho logist Time Signature Hemoglobin A1C 6.1 (H) <=5.6 % [facility] Comment: As of 2013 the methodology [...] Mellitus, Diabetes Care 2013; 36: Suppl. 1, S67-74 Est Avg Gluc 128 mg/dL [facility] Comment: eAG equivalents for HbA1c percentages: HbA1c(%) ?eAG(mg/dL) 6.0 ?126 6.5 ?140 7.0 ?154 7.5 ?169 8.0 ?183 8.5 ?197 9.0 ?212 9.5 ?226 10.0 ? 240 Limitations: The eAG calculation has not been validated on women, individuals below 18 years old and above 70 years old, and individuals with hemoglobinopathies. Additional resources are available on ADA website: ??http://professional.diabetes.org/gluc osecalculator.aspx Jeff GAFFNEY, Michelle J, Imelda R, et al. ??Tr anslating the A1C assay into estimated average glucose values. ??Diabetes Care 2008:31(8):8790-1846. Specimen Anatomical Collection Method Collection Time Receive d Time (Source) Location / / Volume Laterality Blood specimen 10/08/2013 12:50 4 (specimen) PM EDT 12:55 PM EDT Resulting Agency Comment Spec In Lab Angelica Norris III, MD CHEMISTRY ORDERABLES Performing Organization Address City/State/[place] [address] [facility] (ABNORMAL) Basic [...] intervals supplied above were not validated at [facility]. Results from pediatri c patients should be [...] M Calcium 9.3 8.5 - 10.5 mg/dL [facility] Estimated GFR 34 (L) >=60 [facility] [...] Address City/State/ZIP Code Phon e Number [address] [facility] POCT Glucose (10/08/2013 11:25 AM EDT) P athologist Signature POC Glucose 123 60 - 199 [facility] mg/dL [facility] Comment: Supplemental ranges: <110 mg/dL before meals <200 mg/dL all other times of the day Specimen Anatomical Collection Method Collection Time Receive d Time (Source) Location / / Volume Laterality Blood specimen 10/08/2013 11:25 4 (specimen) AM EDT 11:25 AM EDT Angelica Norris III, MD POINT OF CARE TEST ORDERABLE S Performing Organization Address City/[facility]/ZIP Code Phon e Number [address] [facility] documented in [...] (CANCELED) 1145 (New Bag - Provider: Sujatha Connor, ZOILA) 1,000 mL, at 100 mL/hr, Intravenous, CON TINUOUS, Starting Michelle 10/08/13 at 1145, Until Michelle 10/08/13 at 1504, Day of Surgery (Day of Procedure) PRN Medication Order 10/06/2013 10/07/2013 10/08/2013 oxyCODONE (ROXICODONE) immediate release tablet 5-10 mg (CANCELE D) 1448 (Given - Provider: Radha León, ZOILA) 5-10 mg, Oral, EVERY 4 HOURS PRN, Starti ng Michelle 10/08/13 at 1445, Until Michelle 10/08/13 at 1803, Pain, Routine documented in this encounter Care Teams Manager Nursing Home Relationship Specialty Start Date End Date Earline Colbert MD PCP - General 09/08/13 [address] [place] [address] documented as of this encounter
--- OUTSIDE RECORDS SUMMARY | 2022-06-07 14:24 | XMS_ITS | Encounter Summary ---
:1970 Author Organization [facility] [place] [address] Care Team Providers Name Role Phone Earline Colbert MD Primary Care Provider Encounter Details Date Type Department Care Team Description 10/01/2013 Procedure visit Urology at [facility] Duane Norris Hematuria, [facility] MD MUSA unspecified ([facility] ) [facility] [address] [place] [id number] [phone] Social History Tobacco Use Types Packs/Day Years Used Date Smoking Tobacco: Never Smokeless Tobacco: Never Sex Assigned at Date Recorded Not on file documented as of this encounter Progress Notes Giovany Kohli MD - 10/01/2013 1:12 PM EDT UROLOGY CONSULTATION I have been asked to see the patient by Dr. Davis for evaluation and recommendations of hematuria. HPI: Patient started having pelvic pain since January. This started with a culture proven E. Coli UTI for which she was treated with cipro and since then should be treated empirically every tie she had symptoms. All subsequent cultures were negative. Moreover, she states that she would always dip positive forprotein , blood and nitrite but she would never grow anything in her culture. She has had pain constantly since July. She has been on cipro and bactrim on and off. They help for a while and then stop helping. She has sen Dr. Brandt on the 13 of August. She got scoped then and her bladder was inflamed then per her report. She always sees blood in her urine. She does not currently have her period. She had Laser lithotripsy at [facility] a while ago in the s. Her symptoms are frequency, urgency, hematuria and pelvic pain. She wakes up twice at night to urinate. Her most bothersome symptom is pain Diary: Only drinks water during the day, half a gallon maybe No coffee No juices No tea Not sexually active Patient Active Problem List Diagnosis Code ??? Diabetes mellitus 250.00 ??? Hypertension 401.9 ??? Nephrolithiasis 592.0 ??? Simple ovarian cyst 620.2 ??? Morbid obesity with BMI of 50.0-59.9, adult 278.01, V85.43 ??? Pelvic pain in female 625.9 ??? Gross hematuria 599.71 History Substance Use Topics ??? Smoking status: Never Smoker ??? Smokeless tobacco: Never Used ??? Alcohol Use: Not on file Current Outpatient Prescriptions on File Prior to Visit Medication Sig Dispense Refill ??? oxyCODONE (ROXICODONE) [...] Take 20 mg by mouth daily. ??? fluconazole (DIFLUCAN) 150 mg tablet Take 150 mg by mouth once as needed. ??? metFORMIN (GLUCOPHAGE) 850 mg tablet Take 850 mg by mouth 2 times daily (with meals). ??? lisinopril (PRINIVIL;ZESTRIL) 10 mg tablet Take 10 mg by mouth daily. ??? Blood Sugar Diagnostic (ONE TOUCH ULTRA TEST) test strip by Other route daily as needed. Use as instructed ??? Lancets Misc by Misc.(Non-Drug; Combo Route) route daily as needed. Review of Systems General Health: good. GENERAL: Denies fevers, sweats, chills, anorexia, lost 47 pounds since June, sleeps well SERVICE TECHNICIAN: No headaches or loss of consciousness, denies [...] No alcohol No illicit drugs No smoking Meds Oxycodone Pyridium Naproxen celexa Diflucan glucophage lisinopil Family hx No gu hx EXAMINATION: There were no vitals filed for this visit. General: Oriented to person, place and time. Healthy appearance. Color normal. No significant skin lesions. Lungs: CTAB CV: RRR Abdomen: obese We attempted to do an office cystoscopy. Please see procedure note for more detail. In brief, she had poor tolerance to the procedure, very limited visualization given cloudiness, pyridium. Marked inflammation of he lateral bladder knox No results found for this basename: wbc, hgb, platelet, na, k, cl, co2, bun, creatinine, magnesium, inr, ptt, cardiac enzymes UA: + WBC, + RBC, + nitrite Imaging: I have independently seen the CT from [facility]. There is a left lower pole stone of 1.2 cm Assessment: 43 year old female with cystitis-unknown etiology. Will await culture before treating with abx We did cystoscopy-See procedure note for more details Recommendations: Will refer for Dr. Smith for stone management. I have explained to her that for a lower pole stone. Her best options are URS-which might possibly have to be staged. PCNL or watch this with periodic imaging if she is not interested in a procedure This cystitis is from an unclear etiology- I think this warrants an OR diagnostic cystoscopy under general anesthesia with possibly biopsies to rule out eosinophilic/hemorrhagic cystitis In the meantime we have advised her to stop her pyridium because she has been on it over 2 months. Also this will help with better visualizing her mucosa. We will start her on sanctura and a H1 Faith-Claritin in order to minimize anticholinergic effects Consented for cystoscopy Will need a CTU to finish hematuria workup- unable to do today given her creatinine. We will have toschedule at a later date. If unable to do. She will need RPGs documented in this encounter Plan of Treatment Scheduled Orders Name Type Priority Associated Diagnoses Order S chedule Cystoscopy PROCEDURE Routine Hematuria, unspecified Order ed: 10/01/2013 documented as of this encounter Procedures Procedure Name Priority Date/Time Associated Diagnosis Comme nts CREATININE STAT 10/01/2013 2:55 PM Hematuria, unspecified Results for this EDT procedure are i n the results section. documented in this encounter Results (ABNORMAL) Creatinine (10/01/2013 2:55 PM EDT) athologist Signature Creatinine 1.90 (H) 0.70 - CERNER 1.20 mg/dL [facility] Comment: Please note that the pediatric reference intervals supplied above were not validated at [facility]. Results from pediatri c patients should be interpreted in conjunction to the patient's age, height and muscle mass. Estimated GFR 29 (L) >=60 [facility] Comment: This estimated GFR (eGFR) value was [...] Location / / Volume Laterality Blood specimen 10/01/2013 2:55 PM 014 3:03 (specimen) EDT PM EDT Resulting Agency Comment Spec In Lab Duane Norris III, MD CHEMISTRY ORDERABLES Performing Organization Address City/State/[place] [address] [facility] documented in this encounter Visit Diagnoses Diagnosis Hematuria, unspecified - Primary documented in this encounter Care Teams Assistant Producer Relationship Specialty Start Date End Date Earline Colbert MD PCP - General 09/08/13 [address] [place] [address] documented as of this encounter
--- OUTSIDE RECORDS SUMMARY | 2022-06-07 14:24 | XMS_ITS | Encounter Summary ---
:1970 Author Organization [facility] [place] [address] Care Team Providers Name Role Phone Earline Colbert MD Primary Care Provider Encounter Details Date Type Department Care Team Description 08/11/2013 Orders Only Radiology Duane Woodard MD [address] [address] [place] [address] [phone] (Wo rk) Social History Tobacco Use Types Packs/Day Years Used Date Smoking Tobacco: Never Assessed Sex Assigned at Date Recorded Not on file documented as of this encounter Plan of Treatment Pending Results Name Type Priority Associated Diagnoses Date/Ti nd Film Library- Storage Imaging Routine 2013 12:49 PM EST only Ultrasound Study documented as of this encounter Visit Diagnoses Not on filedocumented in this encounter Care Teams Coin Wrapping Machine Operator Relationship Specialty Start Date End Date Earline Colbert MD PCP - General 09/08/13 [address] [place], [place] [address] documented as of this encounter
--- OUTSIDE RECORDS SUMMARY | 2022-06-07 14:24 | XMS_ITS | Encounter Summary ---
:1970 Author Organization [facility] [place] [address] Care Team Providers Name Role Phone Earline Colbert MD Primary Care Provider Encounter Details Date Type Department Care Team Description 10/01/2013 Hospital Encounter [place] [facility] [place] cyst; [facility] Pelvic [place] [address] Social History Tobacco Use Types Packs/Day Years Used Date Smoking Tobacco: Never Smokeless Tobacco: Never Sex Assigned at Date Recorded Not on file documented as of this encounter Medications at Time of Discharge Medication Sig Dispensed Refills Start Date End Date citalopram (CELEXA) 20 mg Take 20 mg by mouth 0 tablet daily. Blood Sugar Diagnostic by Other route daily 0 (ONE TOUCH ULTRA TEST) as needed. Use as test strip instructed Lancets Misc by [facility].(Non-Drug; 0 Combo Route) route daily as needed. loratadine (CLARITIN) 10 Take 1 tablet by 30 tablet 12 10/01 mg tablet mouth daily. fluconazole (DIFLUCAN) Take 1 tablet by 7 tablet 0 014 10/15/2013 100 mg tablet mouth daily for 7 days. oxyCODONE (ROXICODONE) 5 Take 1-2 tablets by 30 tablet 0 04/08/2020 mg immediate release mouth every 4 hours tablet as needed. ciprofloxacin (CIPRO) 500 Take 1 tablet by 1 tablet 0 09/1910/01/2013 mg tabletIndications: mouth once for 1 Hematuria, unspecified dose. Prior to cysto oxyCODONE (ROXICODONE) 5 Take 5 mg by mouth 0 10/08/2013 mg immediate release every 4 hours as tablet needed. phenazopyridine Take 200 mg by mouth 0 10/07/2013 (PYRIDIUM) 200 mg tablet 3 times daily as needed. naproxen sodium (ANAPROX) Take 550 mg by mouth 0 10/08/2013 550 mg tablet 2 times daily (with meals). fluconazole (DIFLUCAN) Take 150 mg by mouth 0 10/08/2013 150 mg tablet once as needed. metFORMIN (GLUCOPHAGE) Take 850 mg by mouth 0 10/26/2013 850 mg tablet 2 times daily (with meals). lisinopril Take 10 mg by mouth 0 10/08 (PRINIVIL;ZESTRIL) 10 mg daily. tablet trospium (SANCTURA) 20 mg Take 1 tablet by 30 tablet 3 09/1910/28/2013 tablet mouth 2 times daily. documented as of this encounter Plan of Treatment Not on filedocumented as of this encounter Procedures Procedure Name Priority Date/Time Associated Comments Diagnosis US TRANSVAGINAL NON Routine 10/01/2013 3:49 PM Simple ov emmanuel cyst Results for this OB EDT Pelvic pain in procedure are in female the results section. documented in this encounter Results US Transvaginal non OB (10/01/2013 3:49 PM EDT) Anatomical Region Laterality Modality Ultrasound Specimen (Source) Anatomical Collection Method Collection Time Re ceived Time Location / / Volume Laterality 10/01/2013 3:49 PM EDT Narrative 10/01/2013 3:56 PM EDT ?Gynecological Report ? (Signed Final 10/01/2013 03 :54 pm) Patient Info ID: ? [id number] ? : [birth year] (43 yrs) Name: ? CHERELLE VAUGHAN ?Visit Date: 10/01/2013 03:46 pm Performed By Performed By: ?Crystal Ramirez RDMS Attending: ? Hugh DUGGAN, Kodak Tejeda Referred By: ? JASMIN DAVIS MD Service(s) Provided [facility] - Ultrasound - Transvaginal - [phone] ? [id number] Indications pelvic pain, history right ovarian cyst [...] to participat e in the care of CEHRELLE Zuñiga ALEXUS. Please do not hesitate to call if you have any questions. ? Chauncey Salomon Electronically Signed Final Report ?? 03:54 pm Procedure Note Kodak Reese MD - 10/01/2013Formatt ing of this note might be different from the original. Gynecological Report (Signed Final 10/01/2013 03:54 pm) Patient Info ID: [id number] : [birth year] (43 yrs ) Name: CHERELLE Zuñiga ALEXUS Visit Date: 2013 03:46 pm Performed By Performed By: Crystal Ramirez RDMS Attending: Kodak Reese MD. Referred By: JASMIN DAVIS MD Service(s) Provided [facility] - Ultrasound - Transvaginal - [phone] Indications pelvic pain, history right ovarian cyst [...] to participat e in the care of CHERELLE Zuñiga ALEXUS. Please do not hesitate to call if you have any questions. Kodak Reese MD Electronically Signed Final Report 10/01 03:54 pm Jasmin Davis MD IMG US PELVIC ORDERABLES documented in this encounter Visit Diagnoses Diagnosis Simple ovarian cyst Other and unspecified ovarian cyst Pelvic pain in female Unspecified symptom associated with fema le genital organs documented in this encounter Care Teams Mechanical Integrity Engineer Relationship Specialty Start Date End Date aErline Colbert MD PCP - General 09/08/13 [address] [place] [address] documented as of this encounter
--- OUTSIDE RECORDS SUMMARY | 2022-06-07 14:26 | XMS_ITS | Clinical Summary ---
:1970 Author Organization [facility] Address [address] [place] [address] Care Team Providers Name Role Phone Unknown, Provider Primary Care Provider Social History Tobacco Use Types Packs/Day Years Used Date Smoking Tobacco: Never Assessed Sex Assigned at Date Recorded Not on file Plan of Treatment Health Maintenance Due Date Last Done Comments Hepatitis C Screen 1970 COVID-19 Vaccine (#1) 1970 Care Teams Direct Support Staff Member Relationship Specialty Start Date End Date Unknown, Provider, PCP - General 11/22/17
--- OUTSIDE RECORDS SUMMARY | 2022-06-07 14:27 | XMS_ITS | Encounter Summary ---
:1970 Author Organization [facility] Address [address] [place] [address] Care Team Providers Name Role Phone Unavailable Primary Care Provider Unavailable Encounter Details Date Type Department Care Team Description 11/18/2017 Results Only [facility]- Kamille Serna, [address] [place], [place] [phone] (Wo rk) Social History Tobacco Use Types Packs/Day Years Used Date Smoking Tobacco: Never Assessed Sex Assigned at Date Recorded Not on file documented as of this encounter Plan of Treatment Not on filedocumented as of this encounter Procedures Procedure Name Priority Date/Time Associated Diagnosis Comme [facility] SURGICAL PATHOLOGY Routine 11/18/2017 17:21 Resul ts for this EDT procedure are i n the results section. documented in this encounter Results SURGICAL PATHOLOGY (11/18/2017 17:21 EDT) Component Value Ref Test Analysis Performed At [facility] Method Time Signature Pathology SURGICAL PATHOLOGY REPORT [facility] MEDICAL Report: Reports generated via electronic interface contain [facility] data; CENTER however they are lacking the format of the original report. LABORATORY Caution should be taken when reading/interpreting unformat efrain reports. SERVICES Name: ? CHERELLE VAUGHAN ? Accession #: ? [id number] ? : ? 1970 (Age: [age]) ??F ? Collect Date: ? 11/18/2017 ? Location: ? [facility] ? Receive Date: ? 11/19/2017 ? Provider: KAMILLE CANALES PAC Copy to: ? Final Pathologic Diagnosis: SKIN OF HUNTER, LEFT ANTERIOR, PUNCH BIOPSY: - Superficial and deep perivascular dermatitis with eosinoph ils. ??See microscopic and comment. Comment: The findings are predominant ly those of a dermal hypersensitivity reaction. ??The depth and density of the infiltrate raise an arthropod assault reaction as a consideration. This case was shown in intradepartmenta l consultation. ??(Dr. Teresa)/[facility] Microscopic Description: Sections consist of a punch biopsy of skin. ??There is basketweave to compacted orthokeratosis with parakeratosis and entrapped neutro phils. ??The epidermis shows mild spongiosis. ??There is a mild-moderate degr ee of papillary dermal edema. ??Within the dermis is a superficial and deep, periva scular and interstitial mixed inflammatory infiltrate which includes lymphomononuclear cells and numerous eosinophi ls. ??PAS-D stain is negative for fungal organisms. Deeper levels have been examined. ??(Dr. Teresa)/[facility] Document reviewed and electronically signed by: SOHA TERESA MD Report ??Date: 11/22/2017 15:11 By the signature above, the attending physician certifies th at he/she has personally conducted a gross and/or microscopic examin ation of the described specimens and rendered or confirmed the above diagnosis. Specimen(s) Received: 4.0 mm punch biopsy left anterior hunter Clinical History: 10.0 x 14.0 cm maculopapular rash left hunter x1 month, spreading, very itchy, past medical history of macule, diabetes, and morbid obesity Gross Description: ? Received in formalin labelled with proper patient identification (initials P, J) and left anterior hunter is a punch biopsy of chavarria-white skin (0.4 cm in diameter and 0.4 cm in thickness). Submitted intact in 1. PARTH Major (ASCP) 11/19/2017 5:29 PM End of Report Specimen Anatomical Collection Method Collection Time Receive d Time (Source) Location / / Volume Laterality 11/18/2017 17:21 11/19/2017 EDT 17:21 EDT Kamille Canales PA-C PATHOLOGY ORDERABLES Performing Organization Address City/State/ZIP Code Phon e Number [facility] [address] [place] [address] SERVICES documented in this encounter Visit Diagnoses Not on filedocumented in this encounter
--- OUTSIDE RECORDS SUMMARY | 2022-06-07 14:27 | XMS_ITS | Encounter Summary ---
:[address] [facility] Address [address] [place] [address] Care Team Providers Name Role Phone Unknown, Provider Primary Care Provider Encounter Details Date Type Department Care Team Description 05/21/[address] [facility] Jian Bae for general Pathology & [facility] adult [facility] Laboratory Medicine - [address] [facility] abnormal findings [address] [place] [id number] [phone] Social History Tobacco Use Types Packs/Day Years Used Date Smoking Tobacco: Never Assessed Sex Assigned at Date Recorded Not on file documented as of this encounter Plan of Treatment Not on filedocumented as of this encounter Procedures Procedure Name Priority Date/Time Associated Diagnosis Comme nts SUSCEPTIBILITY Today 05/18/2021 19:36 EDT Encounter for gene ral Results for this adult medical procedure are in examination without the resu lts abnormal findings section. documented in this encounter Results (ABNORMAL) SUSCEPTIBILITY (05/18/2021 19:36 EDT) Component Value Ref Test Method Analysis Performed At [facility] Range Time Signature Organism ID Escherichia VITEK 05/23/2021 [facility] coli (A) SUSCEPTIBILITY 10:35 EDT CENTER LABORATORY SERVICES Specimen Anatomical Collection Method Collection Time Receive d Time (Source) Location / / Volume Laterality Organism 05/18/2021 19:36 05/21/2021 EDT 17:02 EDT Organism Antibiotic Method Susceptibility Escherichia coli Fosfomycin MICRO SUSCEPTIBILITY 0.5 ug/mL: Susceptible Komal Bae MICROBIOLOGY - GENERAL ORDER [place] Performing Organization Address City/State/ZIP Code Phon e Number [facility] [address] [place] [address] SERVICES documented in this encounter Visit Diagnoses Diagnosis Encounter for general adult medical exam ination without abnormal findings Unspecified general medical examination documented in this encounter Care Teams Quality Liaison Relationship Specialty Start Date End Date Unknown, Provider, PCP - General 11/22/17 documented as of this encounter
== END 2022-06-07 14:21 | disposition home or self-care (01) ==
LOC: NCHCN 14:20
PROVIDERS: PCP Family Medicine; Visit Provider Family Medicine
DX: N39.0 Urinary tract infection, site not specified (principal)
CPT/HCPCS: 87086

== ENCOUNTER 2022-07-24 14:10 | Outpatient (REF) | payer BC, SELFPAY | END 2022-07-24 14:11 | disposition home or self-care (01) | LOC: NCHCN 14:10 | PROVIDERS: PCP Family Medicine; Visit Provider Family Medicine | DX: N39.0 Urinary tract infection, site not specified (principal) | CPT/HCPCS: 87086 ==

== ENCOUNTER 2022-07-26 03:01 | Outpatient (CLI) | payer BC, SELFPAY ==
[2022-07-26 15:02] LABS: ESR 33 mm/hr (0-30)
[2022-07-26 15:03] LABS: HCT 40.3 % (36.0-46.0); HGB 13.1 g/dL (11.2-15.7); MCHC 32.5 % (32.0-36.0); MCV 89 fL (80-95); MPV 9.7 fL (8.0-11.0); Platelet Count 253 10^3/uL (130-400); RBC 4.52 10^6/uL (3.93-5.22); RDW-SD 42.6 fL; WBC 4.79 10^3/uL (4.4-10.8)
[2022-07-26 16:07] LABS: ALT 17 U/L (14-59); AST 16 U/L (15-37); Alkaline Phosphatase 71 U/L (46-116); Anion Gap 9.6 mmol/L (3-11); BUN 14 mg/dL (7-18); Bilirubin, Total 0.3 mg/dL (0.2-1.0); C-Reactive Protein 1.74 mg/dL (0.0-0.3); CO2 23.4 mmol/L (21.0-32.0); CREATININE 1.4 mg/dL (0.55-1.02); Calcium 8.9 mg/dL (8.5-10.1); Chloride 105 mmol/L (98-107); Estimated GFR 45.27 (mL/min/1.73m2); Glucose 180 mg/dL (74-106); Potassium 4.2 mmol/L (3.5-5.1); Sodium 138 mmol/L (136-145); TSH (W/Ref FT4) 2.95 uIU/mL (0.36-3.74); Total Protein 7.3 g/dL (6.4-8.2)
[2022-07-26 22:57] LABS: Rheumatoid Factor <8.6 IU/mL (<12.0)
[2022-07-27 13:31] LABS: SS-A Antibody 0.9 Units (<20.0)
[2022-07-27 13:34] LABS: SS-B (La) Ab, IgG 2.6 Units (<20.0)
[2022-07-31 14:20] LABS: ANA Interpretation Negative (Negative)
== END 2022-07-26 03:02 | disposition home or self-care (01) ==
LOC: LBO 03:01
PROVIDERS: PCP Family Medicine; Visit Provider Family Medicine
DX: N39.0 Urinary tract infection, site not specified (principal); R10.9 Unspecified abdominal pain; E11.9 Type 2 diabetes mellitus without complications; N30.10 Interstitial cystitis (chronic) without hematuria
CPT/HCPCS: 36415; 80053; 85027; 85652; 84443; 86038; 86140; 86235; 86431

== ENCOUNTER 2023-01-29 16:33 | Outpatient (REF) | payer BC, SELFPAY ==
[2023-01-29 20:07] LABS: HCT 41.6 % (36.0-46.0); HGB 13.4 g/dL (11.2-15.7); MCH 28.9 pg (27.0-33.0); MCHC 32.2 % (32.0-36.0); MCV 90 fL (80-95); MPV 10.6 fL (8.0-11.0); Platelet Count 261 10^3/uL (130-400); RBC 4.64 10^6/uL (3.93-5.22); RDW 13.6 % (11.7-14.6); RDW-SD 44.6 fL; WBC 4.86 10^3/uL (4.4-10.8)
[2023-01-29 22:02] LABS: Hemoglobin A1C 8.5 % (<5.7)
[2023-01-29 23:04] LABS: ALT 21 U/L (14-59); AST 18 U/L (15-37); Albumin 3.3 g/dL (3.4-5.0); Alkaline Phosphatase 73 U/L (46-116); Anion Gap 10.1 mmol/L (3-11); BUN 12 mg/dL (7-18); Bilirubin, Total 0.3 mg/dL (0.2-1.0); CO2 24.9 mmol/L (21.0-32.0); CREATININE 1.3 mg/dL (0.55-1.02); Calcium 9.3 mg/dL (8.5-10.1); Chloride 106 mmol/L (98-107); Estimated GFR 49.48 (mL/min/1.73m2); Ferritin 39 ng/mL (8-252); Glucose 219 mg/dL (74-106); Potassium 4.7 mmol/L (3.5-5.1); Sodium 141 mmol/L (136-145); TSH (W/Ref FT4) 2.07 uIU/mL (0.36-3.74); Total Protein 6.8 g/dL (6.4-8.2); Vitamin B12 396 pg/mL (193-986)
== END 2023-01-29 16:34 | disposition home or self-care (01) ==
LOC: NCHCN 16:33
PROVIDERS: PCP Family Medicine; Visit Provider Family Medicine
DX: G47.30 Sleep apnea, unspecified (principal); D64.9 Anemia, unspecified; E11.9 Type 2 diabetes mellitus without complications
CPT/HCPCS: 80053; 85027; 82607; 82728; 83036; 84443

== ENCOUNTER 2023-09-19 16:05 | Outpatient (REF) | payer BC, SELFPAY ==
--- NOTE | 2023-09-19 15:15 | PAPFT_PTH ---
PATIENT: Libia Burgos LOC: NCN #:[id number] AGE/SX: 53/F ROOM: RE09/19/[address]: Earline Colbert V : 1970 BED: DIS: 09/19/2023 SPEC #: [id number] RECD: 09/20/23 12:54 STATUS: HUNTER RERani #: [id number] JONI: 09/19/23 15:[address]: Earline Colbert V DEPT: [facility] Cytology RECD BY: Patience Bang Tissues: 1 - CX/ENDOCX FOR PAP SMEARS Procedures: PAP THIN PREP/UVM Screening HPV DNA PROBE Comments: [id number] (HPV 16 & 18/45)
[2023-09-19 18:59] LABS: HCT 42.7 % (36.0-46.0); HGB 13.7 g/dL (11.2-15.7)
[2023-09-19 19:35] LABS: Anion Gap 12.8 mmol/L (3-11); BUN 15 mg/dL (7-18); CO2 24.2 mmol/L (21.0-32.0); CREATININE 1.7 mg/dL (0.55-1.02); Calcium 9.6 mg/dL (8.5-10.1); Chloride 103 mmol/L (98-107); Estimated GFR 35.64 (mL/min/1.73m2); Ferritin 57 ng/mL (8-252); Glucose 211 mg/dL (74-106); Potassium 4.1 mmol/L (3.5-5.1); Sodium 140 mmol/L (136-145); Vitamin B12 371 pg/mL (193-986)
[2023-09-19 19:37] LABS: Hemoglobin A1C 6.8 % (<5.7)
== END 2023-09-19 16:06 | disposition home or self-care (01) ==
LOC: NCHCN 16:05
PROVIDERS: PCP Family Medicine; Visit Provider Family Medicine
DX: E11.9 Type 2 diabetes mellitus without complications (principal); F43.21 Adjustment disorder with depressed mood; I10 Essential (primary) hypertension
CPT/HCPCS: 80048; 88142; 82607; 82728; 83036; 85014; 85018; 87624

== ENCOUNTER 2024-02-27 22:02 | Outpatient (REF) | payer BC, SELFPAY ==
[2024-02-27 21:43] LABS: Anion Gap 9.5 mmol/L (3-11); BUN 16 mg/dL (7-18); CO2 25.5 mmol/L (21.0-32.0); CREATININE 1.4 mg/dL (0.55-1.02); Calcium 9.2 mg/dL (8.5-10.1); Chloride 105 mmol/L (98-107); Estimated GFR 44.99 (mL/min/1.73m2); Glucose 143 mg/dL (74-106); Potassium 4.5 mmol/L (3.5-5.1); Sodium 140 mmol/L (136-145)
[2024-02-27 22:32] LABS: Hemoglobin A1C 6.7 % (<5.7)
== END 2024-02-27 22:03 | disposition home or self-care (01) ==
LOC: NCHCN 22:02
PROVIDERS: PCP Family Medicine; Visit Provider Nurse Practitioner Family
DX: E11.9 Type 2 diabetes mellitus without complications (principal); N18.9 Chronic kidney disease, unspecified; R33.9 Retention of urine, unspecified
CPT/HCPCS: 80048; 83036; 87086

== ENCOUNTER 2024-02-28 12:58 | Emergency (ER) | payer BC, SELFPAY ==
[2024-02-28 13:04] VITALS: BP 171/106; PULSE 99; RESP 22; TEMP 36.8; O2SAT 97
--- NOTE | 2024-02-28 14:11 | ED.GENADUL_ITS ---
Discharge Plan Disposition Patient Disposition: Home Condition: Stable Discharge Details Clinical Impression: Dislodged Bartlett catheter, UTI (urinary tract infection) Primary Care Provider: Earline Colbert V ED Provider: Jake Acuna Home Meds and New Rx's Prescriptions: New cefpodoxime 200 mg tablet 200 mg PO BID Qty: 19 0RF Rx Instructions: must administer with a meal/food fluconazole 150 mg tablet 150 mg PO Q3D Qty: 2 0RF Continued trazodone 50 mg tablet Patient Comments: TAKE ONE-HALF TABLET BY MOUTH AT BEDTIME CAN INCREASE EVERY FEW DAYS NEEDED FOR OPTIMAL SLEEP MAXIMUM DAILY DOSE = 2 TABLETS glipizide 10 mg tablet Patient Comments: TAKE ONE TABLET BY MOUTH TWICE A DAY vitamin E 268 mg (400 unit) capsule 268 mg PO DAILY cholecalciferol (vitamin D3) [Vitamin D3] 25 mcg (1,000 unit) capsule 25 mcg PO DAILY cranberry extract 200 mg capsule 200 mg PO BID Rx Instructions: administer with meals Toujeo SoloStar U-300 Insulin See Rx Instructions .ROUTE .COMPLEX Rx Instructions: take twice daily metformin 850 MG tablet 500 mg PO DAILY Patient Comments: pt states that she takes 1000mg QD in the AM amlodipine 5 MG tablet 5 mg PO DAILY citalopram 20 MG tablet 20 mg PO DAILY trospium 20 MG tablet 20 mg PO DAILY Loratadine 10 MG Tab.Rapdis 10 mg PO DAILY atorvastatin [Lipitor] 40 MG tablet 40 mg PO QPM Qty: 30 0RF aspirin [Lo-Dose Aspirin] 81 MG tablet,delayed release (DR/EC) 81 mg PO DAILY Qty: 30 0RF Discharge Instructions Instructions: Urinary tract infections in adults, Bartlett Catheter Additional Instructions: Please take full course of antibiotic as prescribed. You were given initial dose here in the emergency department. Your next dose should be taken late tonight. Please contact your primary care physician to arrange follow-up regarding care o f bartlett catheter. Return to the ER immediately for any worsening or new concerning symptoms. Referrals: Earline Colbert MD [Primary Care Provider] - [facility] General Mode of arrival: ambulatory . Date/Time Provider Initiated Documentation: 02/28/24 13:00 . Limitations to Documentation: no limitations . Information obtained by: patient . HPI Narrative: 53yo female with history of intermittent urinary retention here with urinary retention and bartlett catheter dislodgment. Patient states she was seen by PCP yesterday and had bartlett catheter placed. Cathater fell out last night - patient believes balloon was not inflated during insertion. Fully intact catheter was removed. Patient denies associated fever. Related Data Home Medications ?Medication ?Instructions ?Recorded ?Confirmed Loratadine 10 mg PO DAILY 05/08/17 02/28/24 amlodipine 5 mg tablet 5 mg PO DAILY 05/08/17 02/28/24 citalopram 20 mg tablet 20 mg PO DAILY 05/08/17 02/28/24 trospium 20 mg tablet 20 mg PO DAILY 05/08/17 02/28/24 aspirin 81 mg tablet,delayed 81 mg PO DAILY ##30 05/09/17 02/28/24 release (Lo-Dose Aspirin) atorvastatin 40 mg tablet (Lipitor) 40 mg PO QPM ##30 05/09/17 02/28/24 Ranityler YungJaylene U-300 Insulin See Rx Instructions .Route .COMPLEX 02/28/24 02/28/24 cefpodoxime 200 mg tablet 200 mg PO BID #19 tabs 02/28/24 cholecalciferol (vitamin D3) 25 25 mcg PO DAILY 02/28/24 02/28/24 mcg (1,000 unit) capsule (Vitamin D3) cranberry extract 200 mg capsule 200 mg PO BID 02/28/24 02/28/24 fluconazole 150 mg tablet 150 mg PO Q3D 2 doses #2 tabs 02/28/24 glipizide 10 mg tablet mg 02/28/24 metformin 850 mg tablet 500 mg PO DAILY 02/28/24 02/28/24 trazodone 50 mg tablet mg 02/28/24 vitamin E 268 mg (400 unit) capsule 268 mg PO DAILY 02/28/24 02/28/24 Previous Rx's ?Medication ?Instructions ?Recorded aspirin 81 mg tablet,delayed 81 mg PO DAILY ##30 05/09/17 release (Lo-Dose Aspirin) atorvastatin 40 mg tablet (Lipitor) 40 mg PO QPM ##30 05/09/17 cefpodoxime 200 mg tablet 200 mg PO BID #19 tabs 02/28/24 fluconazole 150 mg tablet 150 mg PO Q3D 2 doses #2 tabs 02/28/24 Allergies Allergy/AdvReac Type Severity Reaction Status Date / Time pollen extracts Allergy Intermediate Wheezing Unverified 02/28/24 14:41 rosuvastatin calcium (From Allergy Intermediate Unknown Unverified 02/28/24 14:41 Crestor) amitriptyline Allergy Unknown Unverified 02/28/24 14:41 prochlorperazine maleate Allergy Unknown Unverified 02/28/24 14:41 (From Compazine) General Stated Complaint: Urinary IVETT: 3 Review of Systems Constitutional Constitutional: Denies fever(s) Genitourinary Genitourinary: Reports as per HPI Exam Const General: cooperative and no acute distress GI Palpation: soft, not firm, no guarding, no masses, not rigid and nontender Course Vital Signs Vital signs: Vital Signs Temperature 36.8 C 02/28/24 13:04 Pulse 99 H 02/28/24 13:04 Respiratory Rate 22 02/28/24 13:04 Blood Pressure 171/106 H 02/28/24 13:04 Pulse Oximetry 97 02/28/24 13:04 Temperature 36.8 C 02/28/24 13:04 Temperature Source Temporal Artery Scan 02/28/24 13:04 Pulse 99 H 02/28/24 13:04 Respiratory Rate 22 02/28/24 13:04 Blood Pressure 171/106 H 02/28/24 13:04 Blood Pressure Position Sitting 02/28/24 13:04 Pulse Oximetry 97 02/28/24 13:04 Oxygen Delivery Method Room Air 02/28/24 13:04 Oxygen Flow Rate 0 02/28/24 13:04 Medical Decision Making 1415 -- 53-year-old female with history of intermittent urinary retention, unknown etiology, requiring Bartlett catheter placement, seen by PCP and had Bartlett placed yesterday. Catheter was accidentally dislodged today. Patient believes catheter balloon was not inflated. Patient is here requesting replacement of catheter. Consider urinary tract infection. I reviewed urine culture that was performed yesterday: Culture still pending. Urinalysis not available from yesterday and I will repeat today. --Bartlett catheter placed by nursing without difficulty. -- Urinalysis reviewed and consistent with UTI. Plan to start treatment with cefpodoxime. Initial dose was provided here in the emergency department. Patient requesting prescription for Diflucan should she develop yeast infection which she has in the past. Results were discussed with the patient. Usual customary discharge instructions reviewed. Lab Data Lab results reviewed: Yes I reviewed the patient's lab results. Labs: 02/28/24 14:20 Urine - Reflex from Ua Urine Culture - Pending Laboratory Tests Range/Units 02/28/24 14:20 Urine Color (Yellow) Yellow Urine Clarity (Clear) Cloudy Urine pH (5-8) 5.0 Ur Specific [place] (1.005-1.025) 1.025 Urine Protein (Neg-Trace) mg/dL Negative Urine Ketones (Negative) mg/dL Negative Urine Blood (Negative) Small H Urine Nitrite (Negative) Negative Urine Bilirubin (Negative) Negative Urine Urobilinogen (Up to 0.2) mg/dL 0.2 Ur Leukocyte Esterase (Negative) Large H Urine RBC (0-2) HPF 3-5 H Urine WBC (0-5) HPF >50 H Ur Epithelial Cells (Negative) HPF Rare Urine Crystals (Negative) HPF Negative Urine Bacteria (Negative) HPF Many Urine Casts (Negative) LPF Negative Urine Mucus (Negative) Negative Ur Culture Indicated? Yes Urine Glucose (Negative) mg/dL Negative Quality:SDOH Health Related Social Needs: No Data to Display PFSH All Active Problems (Updated 02/28/24 @ 15:17 by Jake Acuna MD) UTI (urinary tract infection) (Acute) Dislodged Bartlett catheter (Acute) Social History Smoking/Tobacco Use Status: Never Smoking risk assessment performed?: Yes Drug use: Never Do you feel safe in your relationship?: Yes
[2024-02-28 14:33] LABS: Bilirubin Negative (Negative); Blood Small (Negative); Clarity Cloudy (Clear); Glucose Negative (Negative); Ketones Negative (Negative); Leukocyte Esterase Large (Negative); Nitrite Negative (Negative); Specific Gravity 1.025 (1.005-1.025); Urobilinogen 0.2 mg/dL (Up to 0.2)
[2024-02-28 14:54] LABS: Bacteria Many HPF (Negative); C & S Indicated? Yes; Casts Negative LPF (Negative); Crystals Negative HPF (Negative); Epithelial Cells Rare HPF (Negative); Mucus Negative (Negative); WBC >50 HPF (0-5)
[2024-02-28 15:32] VITALS: BP 155/93; PULSE 79; RESP 18; TEMP 36.7; O2SAT 95
[2024-02-28 15:43] VITALS: BP 155/93; PULSE 79; RESP 18; TEMP 36.7; O2SAT 95
[2024-02-28] MEDS: Cefpodoxime 200 MG TAB PO (15:45)
--- NOTE | 2024-03-01 08:55 | W.ED.FU ---
Follow Up Plan: Culture results reviewed. Yeast noted. Patient was discharged with fluconazole.
== END 2024-02-28 15:44 | disposition home or self-care (01) ==
PROVIDERS: Emergency Provider Student in an Organized Health Care Education/Training Program; PCP Family Medicine
DX: T83.028A Displacement of other urinary catheter, initial encounter (principal); N39.0 Urinary tract infection, site not specified; R33.9 Retention of urine, unspecified; Z79.82 Long term (current) use of aspirin
CPT/HCPCS: 99283; 81003; 81015; 87086

== ENCOUNTER 2024-06-26 08:17 | Emergency (ER) | payer BC, SELFPAY ==
[2024-06-26] VITALS (33 sets, daily range): BP systolic 81–151; BP diastolic 63–89; PULSE 74–92; RESP 16–29; TEMP 36.8; O2SAT 89–99
--- NOTE | 2024-06-26 08:15 | RT.EKG_ITS ---
APPROVED REPORT Exam: Resting ECG Reason for Exam: dizziness Patient Location: E HR:79 bpm ECG Measurements Heart Rate 79 AXIS NJ 179 P 22 QRSd 94 QRS 6 QT 408 T 25 QTc 469 Conclusion Sinus rhythm 79 normal axis no stemi
[2024-06-26 08:47] LABS: Abs Immature Grans 0.03 10^3/uL (0.0-0.06); Absolute Basophil Count 0.04 10^3/uL (0.0-0.2); Absolute Eosinophil Count 0.08 10^3/uL (0.0-0.7); Absolute Lymphocyte Count 0.88 10^3/uL (1.2-3.4); Absolute Neutrophil Count 6.57 10^3/uL (1.2-6.7); Basophils % 0.5 %; HCT 45.7 % (36.0-46.0); HGB 14.6 g/dL (11.2-15.7); Immature Grans % 0.4 %; MCHC 31.9 % (32.0-36.0); MCV 94 fL (80-95); MPV 10.7 fL (8.0-11.0); Neutrophils % 82.1 %; Platelet Count 223 10^3/uL (130-400); RBC 4.87 10^6/uL (3.93-5.22); RDW 13.6 % (11.7-14.6); RDW-SD 46.6 fL
[2024-06-26] MEDS: Ondansetron 4 MG/2 ML VIAL IVP (08:54)
[2024-06-26 09:03] LABS: ALT 19 U/L (14-59); AST 18 U/L (15-37); Albumin 3.4 g/dL (3.4-5.0); Alkaline Phosphatase 81 U/L (46-116); Anion Gap 10.5 mmol/L (3-11); BUN 14 mg/dL (7-18); Bilirubin, Total 0.55 mg/dL (0.2-1.0); CO2 25.5 mmol/L (21.0-32.0); CREATININE 1.5 mg/dL (0.55-1.02); Calcium 9.5 mg/dL (8.5-10.1); Chloride 106 mmol/L (98-107); Estimated GFR 41.16 (mL/min/1.73m2); Glucose 187 mg/dL (74-106); Lipase 44 U/L (<78); Potassium 4.6 mmol/L (3.5-5.1); Sodium 142 mmol/L (136-145); Total Protein 7.3 g/dL (6.4-8.2)
--- NOTE | 2024-06-26 10:24 | ED.GENADUL_ITS ---
Discharge Plan Disposition Patient Disposition: Home Discharge Details Clinical Impression: Nausea, Pre-syncope Primary Care Provider: Earline Colbert V ED Provider: Sherry Linda Home Meds and New Rx's Prescriptions: New ondansetron 4 mg tablet,disintegrating 4 mg PO Q6H PRN (Reason: nausea and vomiting) Qty: 30 0RF No Action trazodone 50 mg tablet Patient Comments: TAKE ONE-HALF TABLET BY MOUTH AT BEDTIME CAN INCREASE EVERY FEW DAYS NEEDED FOR OPTIMAL SLEEP MAXIMUM DAILY DOSE = 2 TABLETS glipizide 10 mg tablet Patient Comments: TAKE ONE TABLET BY MOUTH TWICE A DAY vitamin E 268 mg (400 unit) capsule 268 mg PO DAILY cholecalciferol (vitamin D3) [Vitamin D3] 25 mcg (1,000 unit) capsule 25 mcg PO DAILY cranberry extract 200 mg capsule 200 mg PO BID Rx Instructions: administer with meals Toujeo SoloStar U-300 Insulin See Rx Instructions .ROUTE .COMPLEX Rx Instructions: take twice daily metformin 850 MG tablet 500 mg PO DAILY Patient Comments: pt states that she takes 1000mg QD in the AM cefpodoxime 200 mg tablet 200 mg PO BID Qty: 19 0RF Rx Instructions: must administer with a meal/food fluconazole 150 mg tablet 150 mg PO Q3D Qty: 2 0RF amlodipine 5 MG tablet 5 mg PO DAILY citalopram 20 MG tablet 20 mg PO DAILY trospium 20 MG tablet 20 mg PO DAILY Loratadine 10 MG Tab.Rapdis 10 mg PO DAILY atorvastatin [Lipitor] 40 MG tablet 40 mg PO QPM Qty: 30 0RF aspirin [Lo-Dose Aspirin] 81 MG tablet,delayed release (DR/EC) 81 mg PO DAILY Qty: 30 0RF Discharge Instructions Instructions: Near Fainting Additional Instructions: Take Zofran as needed for nausea make sure to drink plenty of fluids and stay hydrated Monitor symptoms and return if you feel like things are getting worse Please follow-up with your PCP please change your battery Please change your battery on your glucose monitor and continue to monitor blood sugar at home HPI General Date/Time Provider Initiated Documentation: 06/26/24 08:27 . Limitations to Documentation: no limitations . Information obtained by: patient . HPI Narrative: 54-year-old female with past medical history of obesity, diabetes, hypertension presents for evaluation of presyncopal episode. Patient was brought in by ambulance this morning. She states that she had just gotten out of the shower when she felt very lightheaded. She drinks some orange juice and felt fine, but then a little bit later she started having some stomach cramps and thought she needed to have a bowel movement, but started vomiting. She reports multiple episodes of vomiting this morning. She feels still a little lightheaded dizzy and nauseated. She states that she has been compliant with her diabetes medications, but she has not been checking her blood sugar at home because the battery is out on her glucose monitor. Related Data Home Medications ?Medication ?Instructions ?Recorded ?Confirmed Loratadine 10 mg PO DAILY 05/08/17 02/28/24 amlodipine 5 mg tablet 5 mg PO DAILY 05/08/17 02/28/24 citalopram 20 mg tablet 20 mg PO DAILY 05/08/17 02/28/24 trospium 20 mg tablet 20 mg PO DAILY 05/08/17 02/28/24 aspirin 81 mg tablet,delayed 81 mg PO DAILY ##30 05/09/17 02/28/24 release (Lo-Dose Aspirin) atorvastatin 40 mg tablet (Lipitor) 40 mg PO QPM ##30 05/09/17 02/28/24 Touquano SoloStar U-300 Insulin See Rx Instructions .Route .COMPLEX 02/28/24 02/28/24 cefpodoxime 200 mg tablet 200 mg PO BID #19 tabs 02/28/24 cholecalciferol (vitamin D3) 25 25 mcg PO DAILY 02/28/24 02/28/24 mcg (1,000 unit) capsule (Vitamin D3) cranberry extract 200 mg capsule 200 mg PO BID 02/28/24 02/28/24 fluconazole 150 mg tablet 150 mg PO Q3D 2 doses #2 tabs 02/28/24 glipizide 10 mg tablet mg 02/28/24 metformin 850 mg tablet 500 mg PO DAILY 02/28/24 02/28/24 trazodone 50 mg tablet mg 02/28/24 vitamin E 268 mg (400 unit) capsule 268 mg PO DAILY 02/28/24 02/28/24 ondansetron 4 mg disintegrating 4 mg PO Q6H PRN nausea and 06/26/24 tablet vomiting #30 tabs Previous Rx's ?Medication ?Instructions ?Recorded aspirin 81 mg tablet,delayed 81 mg PO DAILY ##30 05/09/17 release (Lo-Dose Aspirin) atorvastatin 40 mg tablet (Lipitor) 40 mg PO QPM ##30 05/09/17 cefpodoxime 200 mg tablet 200 mg PO BID #19 tabs 02/28/24 fluconazole 150 mg tablet 150 mg PO Q3D 2 doses #2 tabs 02/28/24 ondansetron 4 mg disintegrating 4 mg PO Q6H PRN nausea and 06/26/24 tablet vomiting #30 tabs Allergies Allergy/AdvReac Type Severity Reaction Status Date / Time pollen extracts Allergy Intermediate Wheezing Unverified 06/26/24 08:53 rosuvastatin calcium (From Allergy Intermediate Unknown Unverified 06/26/24 08:53 Crestor) amitriptyline Allergy Unknown Unverified 06/26/24 08:53 prochlorperazine maleate Allergy Unknown Unverified 06/26/24 08:53 (From Compazine) General Stated Complaint: Nausea/Vomit/Diar IVETT: 3 Exam Narrative Exam Narrative: Review of Systems: All systems reviewed & are unremarkable except as noted in HPI and below Obese NCAT RRR no murmur Unlabored respiratory effort clear bilaterally Nondistended abdomen soft nontender Course Vital Signs Vital signs: Vital Signs Temperature 36.8 C 06/26/24 08:19 Pulse 82 06/26/24 08:19 Respiratory Rate 18 06/26/24 08:19 Blood Pressure 151/87 H 06/26/24 08:19 Pulse Oximetry 98 06/26/24 08:19 Temperature 36.8 C 06/26/24 08:26 Temperature Source Oral 06/26/24 08:26 Pulse 78 06/26/24 09:31 Pulse 77 06/26/24 10:00 Respiratory Rate 17 06/26/24 10:00 Respiratory Effort Normal, Non-Labored 06/26/24 08:26 Blood Pressure 108/85 06/26/24 09:31 Blood Pressure Mean 91 06/26/24 09:31 Blood Pressure Position Supine 06/26/24 08:26 Pulse Oximetry 95 06/26/24 10:00 Oxygen Delivery Method Room Air 06/26/24 08:26 Oxygen Flow Rate 0 06/26/24 08:19 Lab/Test Results Lab/Test Results: Laboratory Tests Range/Units 06/26/24 08:40 WBC (4.4-10.8) 10^3/uL 8.00 RBC (3.93-5.22) 10^6/uL 4.87 Hgb (11.2-15.7) g/dL 14.6 Hct (36.0-46.0) % 45.7 MCV (80-95) fL 94 MCH (27.0-33.0) pg 30.0 MCHC (32.0-36.0) % 31.9 L RDW (11.7-14.6) % 13.6 Plt Count (130-400) 10^3/uL 223 MPV (8.0-11.0) fL 10.7 Immature Gran % % 0.4 Neutrophils % % 82.1 Lymphocytes % % 11.0 Monocytes % % 5.0 Eosinophils % % 1.0 Basophils % % 0.5 Nucleated RBC % (0.0-0.3) % 0.0 Absolute Neutrophils (1.2-6.7) 10^3/uL 6.57 Absolute Lymphocytes (1.2-3.4) 10^3/uL 0.88 L Absolute Monocytes (0.1-0.8) 10^3/uL 0.40 Absolute Eosinophils (0.0-0.7) 10^3/uL 0.08 Absolute Basophils (0.0-0.2) 10^3/uL 0.04 Sodium (136-145) mmol/L 142 Potassium (3.5-5.1) mmol/L 4.6 Chloride (98-107) mmol/L 106 Carbon Dioxide (21.0-32.0) mmol/L 25.5 Anion Gap (3-11) mmol/L 10.5 BUN (7-18) mg/dL 14 Creatinine (0.55-1.02) mg/dL 1.5 H Est GFR (CKD-EPI 2020) (mL/min/1.73m2) 41.16 Glucose (74-106) mg/dL 187 H Calcium (8.5-10.1) mg/dL 9.5 Total Bilirubin (0.2-1.0) mg/dL 0.55 AST (15-37) U/L 18 ALT (14-59) U/L 19 Alkaline Phosphatase (46-116) U/L 81 Total Protein (6.4-8.2) g/dL 7.3 Albumin (3.4-5.0) g/dL 3.4 Lipase (<78) U/L 44 Medical Decision Making Emergent evaluation of lightheadedness and nausea and vomiting. Patient is hemodynamically stable at this time. Her EKG was reviewed and independently interpreted: Sinus 79 normal axis. She is slightly hyperglycemic. Initial suspicion is a viral illness. I have a low suspicion for an acute intra- abdominal process. Will evaluate for electrolyte derangement or DKA as a cause of her vomiting. Will give medication for symptom relief. 1015 Patient has not had any additional vomiting episodes in the emergency department. She remains hemodynamically stable. She is tolerating small amounts of liquids, but she is afraid to drink. She is now reporting a headache. Will give some Motrin and IV fluids and reassess. Lab work is unr emarkable. After additional medications, the patient did report improvement in her symptoms. She was able to walk around without being lightheaded. She is not vomiting. Will discharge with Zofran prescription. Return precautions advised. Recommend close follow-up with her PCP. Quality:SDOH Health Related Social Needs: No Data to Display PFSH All Active Problems (Updated 06/26/24 @ 11:49 by Sherry Linda MD) Pre-syncope (Acute) Nausea (Acute) Social History Smoking/Tobacco Use Status: Never Smoking risk assessment performed?: Yes Alcohol Intake: never Drug use: Never Substance use type: does not use Housing: house Do you feel safe in your relationship?: Yes
[2024-06-26] MEDS: Normal Saline 1,000 ML 1000 ML IV (10:28)
[2024-06-26] MEDS: Acetaminophen 500 MG TAB 1000 MG PO (10:28)
[2024-06-26] MEDS: Ondansetron O.D.T. 4 MG TABEF, 3 TABS/BTL PO (12:00)
--- NOTE | 2024-06-29 10:09 | NUR.NOTE ---
Access chart to reconcile EKG orders with EKG's in [facility]. Duplicate order was cancelled. Nursing Note:
== END 2024-06-26 12:24 | disposition home or self-care (01) ==
PROVIDERS: Emergency Provider Emergency Medicine; PCP Family Medicine
DX: E11.69 Type 2 diabetes mellitus with other specified complication (principal); R42 Dizziness and giddiness; R11.0 Nausea; E66.9 Obesity, unspecified
CPT/HCPCS: 36415; 36416; 80053; 82962; 83690; 93005; 96361; 96374; 99284; 85025; 93010; J2405

== ENCOUNTER 2025-02-19 19:23 | Outpatient (REF) | payer BC, SELFPAY | END 2025-02-19 19:24 | disposition home or self-care (01) | LOC: NCHCN 19:23 | PROVIDERS: PCP Family Medicine; Visit Provider Family Medicine | DX: R30.0 Dysuria (principal) | CPT/HCPCS: 87077; 87086; 87186 ==

== ENCOUNTER 2025-05-11 00:21 | Outpatient (CLI) | payer BC, SELFPAY ==
--- NOTE | 2025-05-11 | DI.RAD_ITS ---
Exam(s) XR LUMBAR SPINE COMPLETE EXAM: XR LUMBAR SPINE COMPLETE CLINICAL HISTORY: LUMBAR BACK PAIN, M54.50. TECHNIQUE: 2D digital imaging was performed of the lumbar spine. Five images were obtained. AP, lateral, right oblique, left oblique and L5-S1 spot views were obtained. COMPARISON: CT CT ABDOMEN PELVIS WO from 01/09/2024 FINDINGS: BONES: No fracture or destructive lesion. There are endplate osteophytes at L4-5 and L5-S1. There are degenerative changes of the facets at L4-5 and L5-S1. DISKS: Intervertebral disc spaces are maintained. ALIGNMENT: Lumbar spinal alignment is within normal limits. No spondylolysis or spondylolisthesis. SOFT TISSUE: Calcifications are seen overlying the kidneys bilaterally. These are unchanged compared to the CT scan from 01/09/2024. IMPRESSION: Mild degenerative changes seen at L4-5 and L5-S1. DATA REPOSITORY: RADIATION DOSE DELIVERED:
== END 2025-05-11 00:41 ==
PROVIDERS: PCP Family Medicine; Visit Provider Family Medicine
DX: M51.360 Other intervertebral disc degeneration, lumbar region with discogenic back pain only (principal)
CPT/HCPCS: 72110